=== PATIENT | male | born 1930 | race Caucasian/White ===

== ENCOUNTER 2017-05-05 10:17 | Inpatient (IN) | payer MEDICARE, OTHER ==
--- NOTE | 2017-05-05 11:05 | PDOC ---
History of Present Illness - History of Present Illness Initial Comments: 05/05/17 11:21 The patient is a 86 year old male, with a significant past medical history of hypertension, hyperlipidemia, chronic constipation, and MDS (receiving chemotherapy every 3 weeks for 6 months), who presents to the emergency department from [address] [place] [address], with increased pain to wound on bottom of left 1st toe for about a week. The patient states he noticed a blister to the site many months ago which he reports callused over. 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 He states the last time he had his callus shaved was about 2-3 months ago. The patient reports the pain is localized to the ball of the foot under the big toe. He denies any swelling or pain radiation. He reports the pain is 8/ 10 and exacerbated with walking. He reports he has been taking Advil as needed with temporary pain relief, and also using a callus cushion with minimal relief. He states he is limping secondary to his pain. He denies numbness or tingling to the affected foot. Secondarily, he states his next chemotherapy treatment will be on 05/18 for 5 days. He denies chest pain, shortness of breath, headache and dizziness. He denies fever, chills, nausea, vomit, diarrhea and constipation. He denies dysuria, frequency, urgency and hematuria. 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[place]) <Kristie Thorpe - Last Filed: 05/05/17 11:39> <Joshua Rivas - Last Filed: 05/05/17 14:59> - General Chief Complaint: Wound Infection Stated Complaint: LT FOOT PAIN Time Seen by Provider: 05/05/17 10:36 Past History <Kristie Thorpe - Last Filed: 05/05/17 11:39> - Past Medical History Cancer: Yes (MDS "Chemo") COPD: No HTN: Yes - Surgical History Appendectomy: Yes - Immunization History Immunization Up to Date: Yes - Suicide/Smoking/Psychosocial Hx Smoking History: Never smoked Have you smoked in the past 12 months: No Information on smoking cessation initiated: No Hx Alcohol Use: No Drug/Substance Use Hx: No Substance Use Type: None <Joshua Rivas - Last Filed: 05/05/17 14:59> - Past Medical History Allergies/Adverse Reactions: Allergies Allergy/AdvReac Type Severity Reaction Status Date / Time No Known Allergies Allergy Verified 05/05/17 11:21 Home Medications: Ambulatory Orders Acyclovir [Zovirax -] 400 mg PO ASDIR 05/05/17 Allopurinol [Zyloprim -] 100 mg PO DAILY 05/05/17 Atenolol [Tenormin -] 50 mg PO DAILY 05/05/17 Cyanocobalamin [Vitamin B12 -] 1,500 mcg PO DAILY 05/05/17 Fluconazole 400 mg PO DAILY 05/05/17 Promethazine HCl 25 mg PO Q4H PRN 05/05/17 Simvastatin 20 mg PO DAILY 05/05/17 Spironolactone 50 mg PO DAILY 05/05/17 Review of Systems - Review of Systems Constitutional: No: Chills, Fever Respiratory: No: Cough Musculoskeletal: Yes: See HPI, Joint Pain, Muscle Pain Neurological: No: Tingling, Weakness All Other Systems: Reviewed and Negative <Joshua Rivas - Last Filed: 05/05/17 14:59> *Physical Exam - Vital Signs Last Vital Signs Temp Pulse Resp BP Pulse Ox 97.5 F L 83 14 152/72 97 05/05/17 10:18 05/05/17 10:18 05/05/17 10:18 05/05/17 10:18 05/05/17 10:18 - Physical Exam Comments: 05/05/17 11:21 GENERAL: The patient is awake, alert, and fully oriented, in no acute distress. HEAD: Normal with no signs of trauma. EYES: Pupils equal, round and reactive to light, extraocular movements intact, sclera anicteric, conjunctiva clear with no pallor. ENT: Ears normal, nares patent, oropharynx clear without exudates. Moist mucous membranes. NECK: Normal range of motion, supple without lymphadenopathy, JVD, or masses. LUNGS: Breath sounds equal, clear to auscultation bilaterally. No wheeze/ crackles. HEART: Regular rate and rhythm, normal S1 and S2 without murmur or rub. ABDOMEN: Soft/nontender/nondistended. BS wnl. No guarding or rebound. No palpable masses. No hepatosplenomegaly. EXTREMITIES: Normal range of motion, no edema. No clubbing or cyanosis. No cords, erythema, or tenderness. NEUROLOGICAL: Cranial nerves II through XII grossly intact. Normal speech, normal gait. PSYCH: Normal mood, normal affect. SKIN: (+) (+) left plantar ulceration about 3-4cm likely stage 2 to 3 located at distal aspect of 1st metatarsal. There is some necrotic skin and early signs of deep tissue involvement. There is foul odor and soft tissue swelling extending to dorsum of the foot. No tracking cellulitis. No crepitus. 2+ DP pulse, and otherwise neurovascularly intact. <Kristie Thorpe - Last Filed: 05/05/17 11:39> - Vital Signs Last Vital Signs Temp Pulse Resp BP Pulse Ox 97.5 F L 83 14 152/72 97 05/05/17 10:18 05/05/17 10:18 05/05/17 10:18 05/05/17 10:18 05/05/17 10:18 <Joshua Rivas - Last Filed: 05/05/17 14:59> ED Treatment Course - LABORATORY CBC & Chemistry Diagram: 05/05/17 11:34 05/05/17 11:34 <Joshua Rivas - Last Filed: 05/05/17 14:59> Medical Decision Making - Medical Decision Making 05/05/17 11:41 A portion of this note was documented by scribe services under my direction. I have reviewed the details of the note, within reason, and agree with the documentation with the following case summary and management plan written by me. 86-year-old male with history of MDS on routine outpatient chemotherapy, nondiabetic and without history of peripheral vascular disease with several months of nonhealing left foot blister/wound now presents with about one week of increased pain/swelling/discharge/motor. No fevers or chills, no motor or sensory deficits. Afebrile. Exam as noted with 4 cm ulceration along the plantar aspect of the left foot by the distal first metatarsal, positive bowel odor and discharge with surrounding soft tissue swelling, otherwise neurovascularly intact with 2+ distal pulses 86-year-old male with infected left foot ulcer, on chemotherapy for MDS. Nonseptic appearing, infection appears to be localized. Labs, wound culture Left foot x-ray IV antibiotics Admission for debridement and IV antibiotics 05/05/17 14:55 WBC 3.7, normal diff. ESR 100, CRP 1.6. Chem otherwise wnl. On my prelim review, no soft tissue gas on foot xray. Received iv abx. Accepted for inpatient med/surg by Dr. Woodward, admitting for Dr. Lerma. She will consult Dr. guzman and podiatry <Joshua Rivas - Last Filed: 05/05/17 14:59> *DC/Admit/Observation/Transfer - Attestations Scribe Attestion: 05/05/17 11:27 Documentation prepared by Kristie Thorpe, acting as medical billing coordinator for Joshua Rivas MD, <Kristie Thorpe - Last Filed: 05/05/17 11:39> - Discharge Dispostion Admit: Yes <Joshua Rivas - Last Filed: 05/05/17 14:59> Diagnosis at time of Disposition: Ulcer of left foot Qualifiers: Non-pressure ulcer stage: unspecified non-pressure ulcer stage Qualified Code(s ): L97.529 - Non-pressure chronic ulcer of other part of left foot with unspecified severity Infected ulcer of skin Qualifiers: Non-pressure ulcer stage: unspecified non-pressure ulcer stage Qualified Code(s ): L98.499 - Non-pressure chronic ulcer of skin of other sites with unspecified severity - Discharge Dispostion Condition at time of disposition: Fair
[2017-05-05] MEDS ORDERED: PIPERACILLIN/TAZOB 4.5 GM/100 ML PREMIX BAG IVPB ONE (11:36)
[2017-05-05] MEDS ORDERED: VANCOMYCIN 1,000 MG in DEXTROSE 5%-WATER - 250 ML IVPB ONE (11:36)
[2017-05-05] MEDS ORDERED: PIPERACILLIN/TAZOB 4.5 GM 4.5 GM in DEXTROSE 5%-WATER - 100 ML IVPB ONE (12:00)
[2017-05-05 12:25] LABS: BASOPHIL 0.7 % (0-2.0); EOSINOPHIL 4.5 % (0-4.5); MCH 30.7 pg (25.7-33.7); MCHC 33.7 g/dl (32.0-35.9); MEAN CELL VOLUME 91.2 fl (80-96); MEAN PLT VOLUME 7.2 fl (7.5-11.1); NEUTROPHILS 53.3 % (42.8-82.8); PLATELET COUNT 222 K/MM3 (134-434); RDW 15.9 % (11.9-15.9); WHITE BLOOD COUNT 3.7 K/mm3 (4.0-10.0)
[2017-05-05 12:44] LABS: INR 1.11 (0.82-1.09); PROTHROMBIN TIME (PATIENT) 12.5 SEC (9.98-11.88)
[2017-05-05 12:47] LABS: ACTIVATED PTT 29.5 SECONDS (26.9-34.4)
[2017-05-05 12:51] LABS: ALBUMIN 3.2 g/dl (3.4-5.0); ALK PHOS 112 U/L (45-117); ANION GAP 9 (8-16); BILIRUBIN,TOTAL 0.3 mg/dL (0.2-1.0); C-REACTIVE PROTEIN 1.6 MG/DL (0.00-0.3); CALCIUM 8.4 mg/dL (8.5-10.1); CO2 26 mmol/L (21-32); CREATININE 0.9 mg/dL (0.7-1.3); GLUCOSE,RANDOM 111 mg/dL (74-106); SGOT/AST 16 U/L (15-37); SGPT/ALT 25 U/L (12-78); TOT PROT 6.3 g/dl (6.4-8.2)
[2017-05-05] MEDS ORDERED: PIPERACILLIN/TAZOB 4.5 GM 4.5 GM/100 ML BAG IVPB ONE (12:55)
[2017-05-05] MEDS ORDERED: VANCOMYCIN 1 GRAM (PRE-DOCKED) 1,000 MG/250 ML BAG IVPB ONE (12:59)
[2017-05-05 14:11] LABS: ERYTHROCYTE SEDIMENTATION RATE 100 mm/hr (0-20)
[2017-05-05] MEDS ORDERED: oxyCODONE HCL 5 MG TABLET PO PRN (15:18)
--- NOTE | 2017-05-05 16:37 | PN ---
Progress Note (short form) - Note Progress Note: ID consult dictated imp/reccd 86 year old man recently diagnosed with MDS on monthly Vidaza, admitted with increased pain and bleeding from left chronic plantar ulcer patient reports having had a blister at that spot years ago and having the callus regularly shaved by podiatry, now it has become painful with drainage and has become a wound over the last one month no fevers or chills +erythema of the LLE as well he received vanco/zosyn in ED no blood cultures were sent prior to antiibotics wound culture was sent but the area is essentially dry history from patient and daughter who is at bedside no diabetes infected plantar ulcer- devitalized tissue in the center with surrounding erythema of the ulcer-quite painful LLE cellulitis mds podiatry to see MRI r/o osteo simone Problem List - Problems (1) Infected ulcer of skin Code(s): L98.499 - NON-PRESSURE CHRONIC ULCER OF SKIN OF SITES W UNSP SEVERITY; L08.9 - LOCAL INFECTION OF THE SKIN AND SUBCUTANEOUS TISSUE, UNSP Qualifiers: Non-pressure ulcer stage: unspecified non-pressure ulcer stage Qualified Code(s): L98.499 - Non-pressure chronic ulcer of skin of other sites with unspecified severity; L08.9 - Local infection of the skin and subcutaneous tissue, unspecified; L08.9 - Local infection of the skin and subcutaneous tissue , unspecified (2) Cellulitis Code(s): L03.90 - CELLULITIS, UNSPECIFIED
[2017-05-05 16:49] VITALS: BMI 21.2
--- NOTE | 2017-05-05 17:24 | CONS ---
INFECTIOUS DISEASE CONSULTATION DATE OF CONSULTATION: 05/05/2017 REQUESTING PHYSICIAN: Danyelle Woodward MD HISTORY OF PRESENT ILLNESS: This is an 86-year-old man recently diagnosed with myelodysplasia in September of 2016, receiving Victoza every 28 days. He lives at the [facility] with his , and he presented to the emergency room with increased pain and bleeding from a chronic plantar ulcer on the base of his left big toe. The patient states that many years ago he had a blister under that toe. It subsequently became a callus. The callus would get shaved every several months by the felt pad cutter. About a month ago, he noted that he started developing a wound, then an ulcer at that site, which has progressively worsened with some drainage now noted that is primarily bloody as well as pain on walking. He states he is limping secondary to the pain. He has no fevers or chills. He has no shortness of breath. He otherwise feels well. In the emergency room, he was evaluated and given vancomycin and Zosyn. I am asked to see him for further evaluation. He denies any recent antibiotics. He has had cellulitis of that leg in the past. It is unclear when. His daughter is present and is able to give some of the history. He is unclear when the callus was last shaved and when last the felt pad cutter saw him, currently at [facility]. ALLERGIES: He has no known drug allergies. PAST MEDICAL HISTORY: Notable for hypertension, hyperlipidemia, and gout. He has a history of myelodysplasia, is on Victoza every 28 days. There is no history of diabetes. SURGICAL HISTORY: Notable for appendectomy. He has had some laser vein surgery of his legs as well as Mohs surgery for skin cancer. SOCIAL HISTORY: He is a former smoker. He quit many years ago. He is living with his at [facility]. He is retired. He has lived in many parts of the [place] He worked for [employer] but is originally from [place]. They retired to [place] and recently relocated this summer to [place] to be close to their family. MEDICATIONS AT [facility]: Include acyclovir, allopurinol, atenolol, B12, fluconazole, promethazine, simvastatin, and spironolactone. REVIEW OF SYSTEMS: There are no fevers or chills. He has no cough. He has no chest pain or abdominal pain. He has not had a gout flare in over 20 years. PHYSICAL EXAMINATION: Vital Signs: He is afebrile; temperature is 97.5; T-max of 99. Pulse of 76, blood pressure 148/70. Respiratory rate is 18. He is saturating 100% on room air. General: He is a pleasant, elderly man in no acute distress. HEENT: He is normocephalic. Eyes are anicteric. He has no thrush. Neck: Supple. Lungs: Clear to auscultation. Heart: Regular rate and rhythm. Abdomen: Soft, nontender. Extremities: He has 2+ dorsalis pedis pulses, both legs. He has some erythema of the right lower extremity compared to the left. He has an exquisitely tender plantar ulcer; the middle of which appears to be devitalized, and there is necrotic tissue there as well. He has some surrounding erythema. The gauze, when it was removed, was bloody. LABORATORY DATA: His labs are notable for a white count of 3.7, hemoglobin 9.3, platelets are 222. Sedimentation rate is 100. INR is 1. BUN is 19 and creatinine 0.6. LFTs are normal. CRP is 1.6, and sedimentation rate is 100. No blood cultures were sent. A swab of the foot was sent, but there is really no drainage at this point, and it was negative for white cells. In summary, this is an elderly man with a plantar ulcer that looks like it needs some debridement, with surrounding erythema. It is quite painful. He has left lower extremity cellulitis as well. He has a diagnosis of myelodysplasia. I would suggest we treat him with Rocephin for now. I will have Podiatry see him and obtain an MRI of the foot to rule out osteomyelitis. Further recommendations to follow. Gianni LINO/[id number]
[2017-05-05] MEDS: ACYCLOVIR 400 MG TABLET PO SCH ×2 (18:24→22:21)
[2017-05-05] MEDS: ATORVASTATIN CA 20 MG TABLET (FP) PO SCH ×2 (18:24→22:21)
[2017-05-05] MEDS ORDERED: PT OWN MED DRAWER 7, Y5N ONE (22:02)
[2017-05-05] MEDS: DOCUSATE SODIUM 100 MG CAPSULE (FP) PO SCH (22:21)
--- NOTE | 2017-05-05 22:47 | HP ---
Admitting History and Physical - Admission History of Present Illness: The patient is a 86 year old male, with PMH of HTN, HLD, chronic constipation, and MDS (receiving chemotherapy every 3 weeks for 6 months), who presents to the ED from [address] [place] [address], with increased pain to wound on bottom of left 1st toe for about a week. The patient states he noticed a blister to the site many months ago which he reports callused over. 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 He states the last time he had his callus shaved was about 2-3 months ago. The patient reports the pain is localized to the ball of the foot under the big toe. He denies any swelling or pain radiation. He reports the pain is 8/ 10 and exacerbated with walking. He reports he has been taking Advil as needed with temporary pain relief, and also using a callus cushion with minimal relief. He states he is limping secondary to his pain. He denies numbness or tingling to the affected foot. Secondarily, he states his next chemotherapy treatment will be on 05/18 for 5 days. 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, Peripheral Neuropathy Cardiovascular: Yes: HTN Pulmonary: No: COPD Gastrointestinal: Yes: Constipation Renal/: No: Renal Failure Heme/Onc: Yes: Current Chemotherapy, Myeloproliferative Synd Musculoskeletal: No: Chronic low back pain - Smoking History Smoking history: Never smoked Have you smoked in the past 12 months: No - Alcohol/Substance Use Hx Alcohol Use: No - Social History Usual Living Arrangement: Yes: Assisted Living History of Recent Travel: No Home Medications - Allergies Allergies/Adverse Reactions: Allergies Allergy/AdvReac Type Severity Reaction Status Date / Time No Known Allergies Allergy Verified 05/05/17 11:21 - Home Medications Home Medications: Ambulatory Orders Allopurinol [Zyloprim -] 100 mg PO DAILY 05/05/17 Atenolol [Tenormin -] 50 mg PO DAILY 05/05/17 Ergocalciferol (Vitamin D2) [Vitamin D2] 50,000 unit PO MONTHLY 05/05/17 Simvastatin 20 mg PO DAILY 05/05/17 Spironolactone 50 mg PO DAILY 05/05/17 Vits A,C,E/Lutein/Minerals [Vision Formula with Lutein Tab] 1 each PO DAILY Review of Systems - Review of Systems Constitutional: denies: Chills, Lethargy, Night Sweats, Unintentional Wgt. Loss Eyes: reports: No Symptoms HENT: reports: No Symptoms Neck: reports: No Symptoms Cardiovascular: reports: No Symptoms Respiratory: reports: No Symptoms Gastrointestinal: reports: Constipation. denies: Abdominal Pain, Bloating Genitourinary: reports: No Symptoms Breasts: reports: No Symptoms Reported Musculoskeletal: reports: No Symptoms Integumentary: reports: No Symptoms Neurological: reports: No Symptoms. denies: Numbness Endocrine: reports: No Symptoms Physical Examination Vital Signs: Vital Signs Temperature 98.5 F 05/05/17 18:10 Pulse Rate 65 05/05/17 18:10 Respiratory Rate 18 05/05/17 18:10 Blood Pressure 120/59 05/05/17 18:10 O2 Sat by Pulse Oximetry (%) 97 05/05/17 16:44 Constitutional: Yes: Well Nourished, No Distress, Calm Eyes: Yes: WNL, Conjunctiva Clear HENT: Yes: WNL, Atraumatic, Normocephalic Neck: Yes: WNL, Supple, Trachea Midline Cardiovascular: Yes: WNL, Regular Rate and Rhythm Respiratory: Yes: WNL, CTA Bilaterally Gastrointestinal: Yes: WNL, Normal Bowel Sounds, Soft ...Rectal Exam: Yes: Deferred Renal/: Yes: WNL Breast(s): Yes: WNL Musculoskeletal: Yes: WNL Extremities: Yes: Other ( +foul oder, -drainage, +cellulitis, +erythema, +edema , in 1st MPJ at base of hallux,) Edema: Yes Edema: LUE: 1+, RUE: 1+, LLE: 1+, RLE: 1+ Peripheral Pulses: Left Radial: 2+, Right Radial: 2+, Left Doralis Pedis: 2+, Right Dorsalis Pedis: 2+, Left Femoral: 2+, Right Femoral: 2+ Integumentary: Yes: Venous Stasis Changes Wound/Incision: Yes: Other ( +foul odor, + erythema). No: Draining ...Motor Strength: WNL Psychiatric: Yes: Alert, Oriented Labs: CBC, BMP 05/05/17 11:34 05/05/17 11:34 sedimentation 100 CRP 1.6 Problem List - Problems (1) Ulcer of left foot Assessment/Plan: - on going " On & Off for yrs " - r/o Osteomyelitis MRI ordered - ID consult for ABX coverage c/s of site done in ER -- however site is DRY no Blood C/S available - Vascular consult + pulses bilateral yet ongoing / non healing wound - Podiatry consult r/o abscess may need intervention Code(s): L97.529 - NON-PRESSURE CHRONIC ULCER OTH PRT LEFT FOOT W UNSP SEVERITY Qualifiers: Non-pressure ulcer stage: unspecified non-pressure ulcer stage Qualified Code(s): L97.529 - Non-pressure chronic ulcer of other part of left foot with unspecified severity (2) Infected ulcer of skin Code(s): L98.499 - NON-PRESSURE CHRONIC ULCER OF SKIN OF SITES W UNSP SEVERITY; L08.9 - LOCAL INFECTION OF THE SKIN AND SUBCUTANEOUS TISSUE, UNSP Qualifiers: Non-pressure ulcer stage: unspecified non-pressure ulcer stage Qualified Code(s): L98.499 - Non-pressure chronic ulcer of skin of other sites with unspecified severity; L08.9 - Local infection of the skin and subcutaneous tissue, unspecified; L08.9 - Local infection of the skin and subcutaneous tissue , unspecified (3) Cellulitis Code(s): L03.90 - CELLULITIS, UNSPECIFIED (4) HTN (hypertension) Code(s): I10 - ESSENTIAL (PRIMARY) HYPERTENSION (5) HLD (hyperlipidemia) Code(s): E78.5 - HYPERLIPIDEMIA, UNSPECIFIED (6) MDS (myelodysplastic syndrome) Code(s): D46.9 - MYELODYSPLASTIC SYNDROME, UNSPECIFIED
[2017-05-06 08:01] LABS: ALBUMIN 3.2 g/dl (3.4-5.0); ANION GAP 7 (8-16); CALCIUM 8.7 mg/dL (8.5-10.1); CO2 30 mmol/L (21-32); GLUCOSE,RANDOM 94 mg/dL (74-106)
--- NOTE | 2017-05-06 08:04 | CONSULT ---
Consult - text type - Consultation Consultation Note: Patient is an 86 y.o white male seen for chronic wound sub 1st metatrsal. Patient states it is very painful. Patient cannot recall past treatments but states it has been going on for years on and off. PMH and Meds reviewed Palpable pulses noted b/l extremities, +foul oder, -drainage, +cellulitis, + erythema, +edema, xray reviewed possible changes noted in 1st MPJ at base of hallux, fluctuance noted labs reviewed r/o om r/o abscess MRI. Vascular consult. Hgba1c and c reactive protein added to labs. Will follow. Awaiting MRI results. Possible I&D if no improvement of tenderness. Will follow up tomorrow. Thank You for the consult.
[2017-05-06 08:05] LABS: ALK PHOS 113 U/L (45-117); BILIRUBIN,TOTAL 0.5 mg/dL (0.2-1.0); CREATININE 0.8 mg/dL (0.7-1.3); MAGNESIUM 2.1 mg/dL (1.8-2.4); SGOT/AST 14 U/L (15-37); SGPT/ALT 23 U/L (12-78); TOT PROT 6.2 g/dl (6.4-8.2)
[2017-05-06 08:08] LABS: MCH 30.7 pg (25.7-33.7); MCHC 33.4 g/dl (32.0-35.9); MEAN CELL VOLUME 91.9 fl (80-96); MEAN PLT VOLUME 7.4 fl (7.5-11.1); PLATELET COUNT 247 K/MM3 (134-434); RDW 16.3 % (11.9-15.9)
[2017-05-06 09:30] LABS: C-REACTIVE PROTEIN 1.7 MG/DL (0.00-0.3)
[2017-05-06] MEDS ORDERED: CEFTRIAXONE 1 G/50 ML PREMIX 1 ML IVPB SCH (10:00)
[2017-05-06] MEDS: CEFTRIAXONE 1 GM/50 ML PREMIX IVPB SCH (10:21)
[2017-05-06] MEDS: PANTOPRAZOLE 20 MG TABLET (FP) PO SCH (10:22)
[2017-05-06] MEDS: ALLOPURINOL 100 MG TABLET (FP) PO SCH (10:22)
[2017-05-06] MEDS: ATENOLOL 50 MG TABLET (FP) PO SCH (10:22)
[2017-05-06] MEDS: SPIRONOLACTONE 25 MG TABLET (FP) PO SCH (10:22)
[2017-05-06] MEDS: ACYCLOVIR 400 MG TABLET PO SCH ×2 (10:23→21:03)
--- NOTE | 2017-05-06 12:17 | CONSULT ---
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: Alzheimer's, Peripheral Neuropathy Cardio/Vascular: Yes: HTN Pulmonary: No: COPD Gastrointestinal: Yes: Constipation Renal/: No: Renal Failure Musculoskeletal: No: Chronic low back pain - Alcohol/Substance Use Hx Alcohol Use: No - Smoking History Smoking history: Never smoked Have you smoked in the past 12 months: No - Social History History of Recent Travel: No Home Medications - Allergies Allergies/Adverse Reactions: Allergies Allergy/AdvReac Type Severity Reaction Status Date / Time No Known Allergies Allergy Verified 05/05/17 11:21 - Home Medications Home Medications: Ambulatory Orders Allopurinol [Zyloprim -] 100 mg PO DAILY 05/05/17 Atenolol [Tenormin -] 50 mg PO DAILY 05/05/17 Ergocalciferol (Vitamin D2) [Vitamin D2] 50,000 unit PO MONTHLY 05/05/17 Simvastatin 20 mg PO DAILY 05/05/17 Spironolactone 50 mg PO DAILY 05/05/17 Vits A,C,E/Lutein/Minerals [Vision Formula with Lutein Tab] 1 each PO DAILY Physical Exam Vital Signs: Vital Signs Temperature 98 F 05/06/17 10:40 Pulse Rate 65 05/06/17 10:40 Respiratory Rate 18 05/06/17 10:40 Blood Pressure 118/54 05/06/17 10:40 O2 Sat by Pulse Oximetry (%) 97 05/05/17 21:00 Labs: CBC, BMP 05/06/17 06:25 05/06/17 06:25 Assessment/Plan VAscular Surgery The patient is a 86 year old male, with a significant past medical history of hypertension, hyperlipidemia, chronic constipation, and MDS (receiving chemotherapy every 3 weeks for 6 months), who presents to the emergency department from [address] [place] [address], with increased pain to wound on bottom of left 1st toe for about a week. The patient states he noticed a blister to the site many months ago which he reports callused over. 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 He states the last time he had his callus shaved was about 2-3 months ago. The patient reports the pain is localized to the ball of the foot under the big toe. He denies any swelling or pain radiation. He reports the pain is 8/ 10 and exacerbated with walking. He reports he has been taking Advil as needed with temporary pain relief, and also using a callus cushion with minimal relief. He states he is limping secondary to his pain. He denies numbness or tingling to the affected foot. Secondarily, he states his next chemotherapy treatment will be on 05/18 for 5 days. He denies chest pain, shortness of breath, headache and dizziness. He denies fever, chills, nausea, vomit, diarrhea and constipation. He denies dysuria, frequency, urgency and hematuria. 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[place]) <Kristie Thorpe - Last Filed: 05/05/17 11:39> <Joshua Rivas - Last Filed: 05/05/17 14:59> - General Chief Complaint: Wound Infection Stated Complaint: LT FOOT PAIN Time Seen by Provider: 05/05/17 10:36 Past History <Kristie Thorpe - Last Filed: 05/05/17 11:39> - Past Medical History Cancer: Yes (MDS "Chemo") COPD: No HTN: Yes - Surgical History Appendectomy: Yes - Immunization History Immunization Up to Date: Yes - Suicide/Smoking/Psychosocial Hx Smoking History: Never smoked Have you smoked in the past 12 months: No Information on smoking cessation initiated: No Hx Alcohol Use: No Drug/Substance Use Hx: No Substance Use Type: None <Joshua Rivas - Last Filed: 05/05/17 14:59> - Past Medical History Allergies/Adverse Reactions: Allergies Allergy/AdvReac Type Severity Reaction Status Date / Time No Known Allergies Allergy Verified 05/05/17 11:21 Home Medications: Ambulatory Orders Acyclovir [Zovirax -] 400 mg PO ASDIR 05/05/17 Allopurinol [Zyloprim -] 100 mg PO DAILY 05/05/17 Atenolol [Tenormin -] 50 mg PO DAILY 05/05/17 Cyanocobalamin [Vitamin B12 -] 1,500 mcg PO DAILY 05/05/17 Fluconazole 400 mg PO DAILY 05/05/17 Promethazine HCl 25 mg PO Q4H PRN 05/05/17 Simvastatin 20 mg PO DAILY 05/05/17 Spironolactone 50 mg PO DAILY 05/05/17 PE Head - NC/aT Lung -CTA Heart - RRR abd -soft,nt,nd ext - warm, pink. Left plantar ulcer. very tender to touch. Palpable DP and PT pulses. A/P MRI ordrered. Cleared from a vascular standpoint for exploration of wound if needed by podiatry. ID on case. Lex Read DO
[2017-05-06] MEDS: FLUCONAZOLE 100 MG TABLET (UD) PO SCH (12:21)
--- NOTE | 2017-05-06 12:26 | PN ---
Progress Note (short form) - Note Progress Note: reports less pain, less swelling Vital Signs Period Temp Pulse Resp BP Sys/Rios Pulse Ox Last 24 Hr 98 F-98.6 F 62-65 16-57 99-120/46-68 97-97 LLE less erythema, dry plantar ulcer CBC, BMP 05/06/17 06:25 05/06/17 06:25 Microbiology 05/05/17 11:34 Foot - Left Plantar Gram Stain - Final a/p infected plantar ulcer- devitalized tissue in the center with surrounding erythema of the ulcer-quite painful LLE cellulitis mds podiatry to see MRI r/o osteo rocephin to continue improved d/w Dr Read Problem List - Problems (1) Infected ulcer of skin Code(s): L98.499 - NON-PRESSURE CHRONIC ULCER OF SKIN OF SITES W UNSP SEVERITY; L08.9 - LOCAL INFECTION OF THE SKIN AND SUBCUTANEOUS TISSUE, UNSP Qualifiers: Non-pressure ulcer stage: unspecified non-pressure ulcer stage Qualified Code(s): L98.499 - Non-pressure chronic ulcer of skin of other sites with unspecified severity; L08.9 - Local infection of the skin and subcutaneous tissue, unspecified; L08.9 - Local infection of the skin and subcutaneous tissue , unspecified (2) Cellulitis Code(s): L03.90 - CELLULITIS, UNSPECIFIED
[2017-05-06] MEDS: ATORVASTATIN CA 20 MG TABLET (FP) PO SCH (21:03)
[2017-05-06] MEDS: DOCUSATE SODIUM 100 MG CAPSULE (FP) PO SCH ×2 (21:03→21:26)
--- NOTE | 2017-05-06 21:30 | PN ---
Progress Note (short form) - Note Progress Note: patient sitting in bed having lunch Dr guzman in attendance awaiting MRI of foot remains in "a lot of pain" difficult to ambulate admits has been going on for "weeks" Vital Signs Period Temp Pulse Resp BP Sys/Rios Pulse Ox Last 24 Hr 97.8 F-98.6 F 62-65 16-20 99-123/46-68 97 remains a febrile NAD while sitting in bed neck supple heart S1/S2 Lungclear bilat abd soft non tender Ext -- unchanged CBC, BMP 05/06/17 06:25 05/06/17 06:25 awaiting MRI - will have done today elevated CRP n Sed Rate Microbiology 05/05/17 11:34 Foot - Left Plantar Gram Stain - Final 05/05/17 11:34 Foot - Left Plantar Wound Culture - Preliminary Group D Strep Or Entero Coccus Active Medications Acyclovir (Zovirax -) 400 mg PO BID [facility] Last Admin: 05/06/17 21:03 Dose: 400 mg Allopurinol (Zyloprim -) 100 mg PO DAILY [facility] Last Admin: 05/06/17 10:22 Dose: 100 mg Atenolol (Tenormin -) 50 mg PO DAILY [facility] Last Admin: 05/06/17 10:22 Dose: 50 mg Atorvastatin Calcium (Lipitor -) 20 mg PO HS [facility] Last Admin: 05/06/17 21:03 Dose: 20 mg Docusate Sodium (Colace -) 200 mg PO HS [facility] Last Admin: 05/06/17 21:26 Dose: Not Given Fluconazole (Diflucan -) 400 mg PO DAILY [facility] Last Admin: 05/06/17 12:21 Dose: 400 mg Oxycodone HCl (Roxicodone -) 5 mg PO Q6H PRN PRN Reason: PAIN Last Admin: 05/05/17 22:21 Dose: 5 mg Pantoprazole Sodium (Protonix -) 20 mg PO DAILY [facility] Last Admin: 05/06/17 10:22 Dose: 20 mg Spironolactone (Aldactone -) 50 mg PO DAILY [facility] Last Admin: 05/06/17 10:22 Dose: 50 mg s/p Vanco 1 gm s/p Zosyn now Rocephin 1 gm /day Problem List - Problems (1) Ulcer of left foot Assessment/Plan: - on going " On & Off for yrs " - r/o Osteomyelitis MRI today - ID consult for appreciated ABX per ID c/s of site done in ER -- however site is DRY no Blood C/S available - Vascular consult + pulses bilateral yet ongoing / non healing wound - Podiatry consult r/o abscess may need intervention Code(s): L97.529 - NON-PRESSURE CHRONIC ULCER OTH PRT LEFT FOOT W UNSP SEVERITY Qualifiers: Non-pressure ulcer stage: unspecified non-pressure ulcer stage Qualified Code(s): L97.529 - Non-pressure chronic ulcer of other part of left foot with unspecified severity (2) Infected ulcer of skin Code(s): L98.499 - NON-PRESSURE CHRONIC ULCER OF SKIN OF SITES W UNSP SEVERITY; L08.9 - LOCAL INFECTION OF THE SKIN AND SUBCUTANEOUS TISSUE, UNSP Qualifiers: Non-pressure ulcer stage: unspecified non-pressure ulcer stage Qualified Code(s): L98.499 - Non-pressure chronic ulcer of skin of other sites with unspecified severity; L08.9 - Local infection of the skin and subcutaneous tissue, unspecified; L08.9 - Local infection of the skin and subcutaneous tissue , unspecified (3) Cellulitis Code(s): L03.90 - CELLULITIS, UNSPECIFIED (4) HTN (hypertension) Code(s): I10 - ESSENTIAL (PRIMARY) HYPERTENSION (5) HLD (hyperlipidemia) Code(s): E78.5 - HYPERLIPIDEMIA, UNSPECIFIED (6) MDS (myelodysplastic syndrome) Code(s): D46.9 - MYELODYSPLASTIC SYNDROME, UNSPECIFIED
[2017-05-07] MEDS: ALLOPURINOL 100 MG TABLET (FP) PO SCH (10:06)
[2017-05-07] MEDS: ATENOLOL 50 MG TABLET (FP) PO SCH (10:06)
[2017-05-07] MEDS: SPIRONOLACTONE 25 MG TABLET (FP) PO SCH (10:06)
[2017-05-07] MEDS: PANTOPRAZOLE 20 MG TABLET (FP) PO SCH (10:06)
[2017-05-07] MEDS: CEFTRIAXONE 1 GM/50 ML PREMIX IVPB SCH (10:07)
[2017-05-07] MEDS: FLUCONAZOLE 100 MG TABLET (UD) PO SCH (10:07)
[2017-05-07] MEDS: ACYCLOVIR 400 MG TABLET PO SCH ×2 (10:07→21:50)
--- NOTE | 2017-05-07 10:14 | CONSULT ---
Consult - text type - Consultation Consultation Note: Patient seen in bed. MRI done but not read. Labs reviewed. +drainage today, +tender, +cellulitis, +draining abscess grade 2-3 probes deep OM? Abscess Awaiting MRI result. Possible I&D tomorrow. Will follow. Wound culture done today. Read and appreciated Dr. zane Hoover note. Will put on schedule pending clearance. Medical clearance Dr. Woodward.
--- NOTE | 2017-05-07 13:45 | PN ---
Progress Note (short form) - Note Progress Note: ID Ceftriaxone ( Acyclovir ad diflucan) Selected Entries 05/07/17 09:24 Temperature 97.6 F Pulse Rate 70 Respiratory 20 Rate Blood Pressure 126/63 foot with drainage and cellulitis as noted Microbiology 05/05/17 11:34 Foot - Left Plantar Gram Stain - Final 05/05/17 21:30 Blood - Peripheral Venous Blood Culture - Preliminary NO GROWTH OBTAINED AFTER 24 HOURS, INCUBATION TO CONTINUE FOR 4 DAYS. 05/05/17 21:30 Blood - Peripheral Venous Blood Culture - Preliminary NO GROWTH OBTAINED AFTER 24 HOURS, INCUBATION TO CONTINUE FOR 4 DAYS. 05/05/17 11:34 Foot - Left Plantar Wound Culture - Preliminary Group D Strep Or Entero Coccus Laboratory Tests 05/05/17 05/06/17 05/06/17 11:34 06:25 06:25 WBC 4.0 Hgb 9.8 L Hct 29.2 L Plt Count 247 ESR 100 H BUN 13 D Assessment Cellulitis with abscess Plan MRI reviewed does not show osteo definitively Change to Unasyn Debridement scheduled with deep culture Madison TRUONG
[2017-05-07] MEDS: AMPICILLIN NA/SULBACTAM NA 1.5 GM in SODIUM CHLORIDE 100 ML IVPB SCH ×3 (14:59→22:29)
[2017-05-07] MEDS ORDERED: ACETAMINOPHEN 325 MG TABLET (FP) PO PRN (16:33)
--- NOTE | 2017-05-07 17:31 | CON.CARD ---
Cardiology Consult (text) - Consultation Consultation Note: CC: pre-op clearance 86 yo with h/o HTN here for LE wound --> now requiring surgery, consult for pre- op clearance. Sedentary, but can walk up a flight of stairs without limitations. No prior hx of CV evaluation. No hx of cad, dm, chf, cva/tia. + LE pain at site of wound. Otherwise asx. no orthopnea, pnd, bleeding, cp, sob, transient neurologic sx's, palps. 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 Current Medications Acetaminophen (Tylenol -) 650 mg PO Q6H PRN PRN Reason: FEVER OR PAIN Last Admin: 05/07/17 16:56 Dose: 650 mg Acyclovir (Zovirax -) 400 mg PO BID [facility] Last Admin: 05/07/17 10:07 Dose: 400 mg Allopurinol (Zyloprim -) 100 mg PO DAILY [facility] Last Admin: 05/07/17 10:06 Dose: 100 mg Atenolol (Tenormin -) 50 mg PO DAILY [facility] Last Admin: 05/07/17 10:06 Dose: 50 mg Atorvastatin Calcium (Lipitor -) 20 mg PO HS [facility] Last Admin: 05/06/17 21:03 Dose: 20 mg Docusate Sodium (Colace -) 200 mg PO HS [facility] Last Admin: 05/06/17 21:26 Dose: Not Given Fluconazole (Diflucan -) 400 mg PO DAILY [facility] Last Admin: 05/07/17 10:07 Dose: 400 mg Ampicillin Sodium/Sulbactam (Sodium 1.5 gm/ Sodium Chloride) 100 mls @ 200 mls/ hr IVPB Q6H-IV [facility] Last Admin: 05/07/17 16:57 Dose: Not Given Oxycodone HCl (Roxicodone -) 5 mg PO Q6H PRN PRN Reason: PAIN Last Admin: 05/05/17 22:21 Dose: 5 mg Pantoprazole Sodium (Protonix -) 20 mg PO DAILY [facility] Last Admin: 05/07/17 10:06 Dose: 20 mg Spironolactone (Aldactone -) 50 mg PO DAILY [facility] Last Admin: 05/07/17 10:06 Dose: 50 mg Vital Signs - 24 hr 05/06/17 05/06/17 05/07/17 18:05 21:00 06:00 Temperature 98.3 F 98.5 F Pulse Rate 70 65 Respiratory 18 18 Rate Blood Pressure 119/54 114/59 O2 Sat by Pulse 97 Oximetry (%) 05/07/17 05/07/17 09:24 14:25 Temperature 97.6 F 97.9 F Pulse Rate 70 62 Respiratory 20 18 Rate Blood Pressure 126/63 113/53 O2 Sat by Pulse Oximetry (%) Intake & Output 05/05/17 05/06/17 05/07/17 05/08/17 07:59 07:59 07:59 07:59 Intake Total 875 440 Balance 875 440 Weight 150 lb nad, calm jvd flat, neck supple ctab, nl effort rrr nl s1, s2 no mrg + bs soft nt nd ext with trace edema/erythema at left ankle otherwise no e/c/c dressing to LLE + dp/pt no carotid bruits aaox3 no jaundice, diaphoresis CBC, BMP 05/06/17 06:25 05/06/17 06:25 Laboratory Tests 05/06/17 05/07/17 06:25 07:00 Hemoglobin A1c % 5.9 Total Bilirubin 0.5 D AST 14 L ALT 23 Alkaline Phosphatase 113 C-Reactive Protein 1.7 H D Albumin 3.2 L 86 yo with h/o HTN, Myeloproliferative Synd here for LE wound --> now requiring surgery, consult for pre-op clearance. Pre op -clearance: - EKG ordered. Will follow up. Based on RCRI and functional capacity, patient has low estimated risk for jameson-operative CV events. Patient counseled on risk. No further testing needed prior to intervention. HTN - Will hold spironolactone to avoid jameson-operative hypotension.
[2017-05-07] MEDS: ATORVASTATIN CA 20 MG TABLET (FP) PO SCH (21:50)
[2017-05-07] MEDS: DOCUSATE SODIUM 100 MG CAPSULE (FP) PO SCH (21:50)
[2017-05-08] MEDS: AMPICILLIN NA/SULBACTAM NA 1.5 GM in SODIUM CHLORIDE 100 ML IVPB SCH ×5 (02:07→21:40)
[2017-05-08 07:47] LABS: BASOPHIL 0.7 % (0-2.0); EOSINOPHIL 4.7 % (0-4.5); MCH 30.7 pg (25.7-33.7); MCHC 33.5 g/dl (32.0-35.9); MEAN CELL VOLUME 91.7 fl (80-96); MEAN PLT VOLUME 7.3 fl (7.5-11.1); NEUTROPHILS 60.1 % (42.8-82.8); PLATELET COUNT 257 K/MM3 (134-434); RDW 15.7 % (11.9-15.9); WHITE BLOOD COUNT 4.4 K/mm3 (4.0-10.0)
[2017-05-08] MEDS ORDERED: PT OWN MED DRAWER 7, Y5N ONE ×4 (08:24→21:38)
[2017-05-08 08:36] LABS: ANION GAP 14 (8-16); CALCIUM 9.6 mg/dL (8.5-10.1); CO2 22 mmol/L (21-32); CREATININE 0.9 mg/dL (0.7-1.3); GLUCOSE,RANDOM 96 mg/dL (74-106)
[2017-05-08] MEDS: ALLOPURINOL 100 MG TABLET (FP) PO SCH (09:29)
[2017-05-08] MEDS: PANTOPRAZOLE 20 MG TABLET (FP) PO SCH (09:29)
[2017-05-08] MEDS: ATENOLOL 50 MG TABLET (FP) PO SCH (09:29)
[2017-05-08] MEDS: FLUCONAZOLE 100 MG TABLET (UD) PO SCH (09:30)
[2017-05-08] MEDS: ACYCLOVIR 400 MG TABLET PO SCH ×2 (09:30→21:40)
--- NOTE | 2017-05-08 10:03 | EKG ---
Test Reason : Blood Pressure : / mmHG Vent. Rate : 060 BPM Atrial Rate : 060 BPM P-R Int : 194 ms QRS Dur : 082 ms QT Int : 402 ms P-R-T Axes : 056 037 067 degrees QTc Int : 402 ms NORMAL SINUS RHYTHM NORMAL ECG NO PREVIOUS ECGS AVAILABLE Confirmed by ELSA JAVIER MD ([id number]) on 05/08/2017 10:03:09 AM Referred By: JENNY Confirmed By:ELSA JAVIER MD
--- NOTE | 2017-05-08 10:14 | PN ---
Progress Note (short form) - Note Progress Note: comfrotable in bed still with pain to left foot dressing in place requesting tylenol only appreciate Cardio note and clearance Vital Signs Period Temp Pulse Resp BP Sys/Rios Pulse Ox Last 24 Hr 97.8 F-98.6 F 62-65 16-20 99-123/46-68 97 remains a febrile NAD neck supple heart S1/S2 Lungclear bilat abd soft non tender Ext -- unchanged dressing to left foot Microbiology 05/05/17 11:34 Foot - Left Plantar Gram Stain - Final 05/05/17 11:34 Foot - Left Plantar Wound Culture - Preliminary Group D Strep Or Entero Coccus Active Medications Acyclovir (Zovirax -) 400 mg PO BID [facility] Last Admin: 05/06/17 21:03 Dose: 400 mg Allopurinol (Zyloprim -) 100 mg PO DAILY [facility] Last Admin: 05/06/17 10:22 Dose: 100 mg Atenolol (Tenormin -) 50 mg PO DAILY [facility] Last Admin: 05/06/17 10:22 Dose: 50 mg Atorvastatin Calcium (Lipitor -) 20 mg PO HS [facility] Last Admin: 05/06/17 21:03 Dose: 20 mg Docusate Sodium (Colace -) 200 mg PO HS [facility] Last Admin: 05/06/17 21:26 Dose: Not Given Fluconazole (Diflucan -) 400 mg PO DAILY [facility] Last Admin: 05/06/17 12:21 Dose: 400 mg Oxycodone HCl (Roxicodone -) 5 mg PO Q6H PRN PRN Reason: PAIN Last Admin: 05/05/17 22:21 Dose: 5 mg Pantoprazole Sodium (Protonix -) 20 mg PO DAILY [facility] Last Admin: 05/06/17 10:22 Dose: 20 mg Spironolactone (Aldactone -) 50 mg PO DAILY [facility] Last Admin: 05/06/17 10:22 Dose: 50 mg s/p Vanco 1 gm s/p Zosyn now Rocephin 1 gm /day scheduled for OR in am Problem List - Problems (1) Ulcer of left foot Code(s): L97.529 - NON-PRESSURE CHRONIC ULCER OTH PRT LEFT FOOT W UNSP SEVERITY Qualifiers: Non-pressure ulcer stage: unspecified non-pressure ulcer stage Qualified Code(s): L97.529 - Non-pressure chronic ulcer of other part of left foot with unspecified severity (2) Infected ulcer of skin Code(s): L98.499 - NON-PRESSURE CHRONIC ULCER OF SKIN OF SITES W UNSP SEVERITY; L08.9 - LOCAL INFECTION OF THE SKIN AND SUBCUTANEOUS TISSUE, UNSP Qualifiers: Non-pressure ulcer stage: unspecified non-pressure ulcer stage Qualified Code(s): L98.499 - Non-pressure chronic ulcer of skin of other sites with unspecified severity; L08.9 - Local infection of the skin and subcutaneous tissue, unspecified; L08.9 - Local infection of the skin and subcutaneous tissue , unspecified (3) Cellulitis Code(s): L03.90 - CELLULITIS, UNSPECIFIED (4) HTN (hypertension) Code(s): I10 - ESSENTIAL (PRIMARY) HYPERTENSION (5) HLD (hyperlipidemia) Code(s): E78.5 - HYPERLIPIDEMIA, UNSPECIFIED (6) MDS (myelodysplastic syndrome) Code(s): D46.9 - MYELODYSPLASTIC SYNDROME, UNSPECIFIED
--- NOTE | 2017-05-08 10:38 | PN ---
Progress Note (short form) - Note Progress Note: comfrotable in bed scheduled for OR shortly dressing in place appreciate Cardio note and clearance Patient medically cleared for OR today Vital Signs Period Temp Pulse Resp BP Sys/Rios Pulse Ox Last 24 Hr 97.8 F-98.6 F 62-65 16-20 99-123/46-68 97 remains a febrile NAD neck supple heart S1/S2 Lung clear bilat abd soft non tender Ext -- unchanged dressing to left foot CBC, BMP 05/08/17 07:20 05/08/17 07:20 EKG 05/08/17 NSR MRI --early Osteo?? elevated Sed Rate & CRP Microbiology 05/05/17 21:30 Blood - Peripheral Venous Blood Culture - Preliminary NO GROWTH OBTAINED AFTER 48 HOURS, INCUBATION TO CONTINUE FOR 3 DAYS. 05/05/17 21:30 Blood - Peripheral Venous Blood Culture - Preliminary NO GROWTH OBTAINED AFTER 48 HOURS, INCUBATION TO CONTINUE FOR 3 DAYS. 05/05/17 11:34 Foot - Left Plantar Gram Stain - Final 05/05/17 11:34 Foot - Left Plantar Wound Culture - Preliminary Group D Strep Or Entero Coccus Staphylococcus Coagulase Neg Active Medications Acetaminophen (Tylenol -) 650 mg PO Q6H PRN PRN Reason: FEVER OR PAIN Last Admin: 05/07/17 16:56 Dose: 650 mg Acyclovir (Zovirax -) 400 mg PO BID [facility] Last Admin: 05/08/17 09:30 Dose: 400 mg Allopurinol (Zyloprim -) 100 mg PO DAILY [facility] Last Admin: 05/08/17 09:29 Dose: 100 mg Atenolol (Tenormin -) 50 mg PO DAILY [facility] Last Admin: 05/08/17 09:29 Dose: 50 mg Atorvastatin Calcium (Lipitor -) 20 mg PO HS [facility] Last Admin: 05/07/17 21:50 Dose: 20 mg Docusate Sodium (Colace -) 200 mg PO HS [facility] Last Admin: 05/07/17 21:50 Dose: 200 mg Fluconazole (Diflucan -) 400 mg PO DAILY [facility] Last Admin: 05/08/17 09:30 Dose: 400 mg Ampicillin Sodium/Sulbactam (Sodium 1.5 gm/ Sodium Chloride) 100 mls @ 200 mls/ hr IVPB Q6H-IV [facility] Last Admin: 05/08/17 09:42 Dose: 200 mls/hr Oxycodone HCl (Roxicodone -) 5 mg PO Q6H PRN PRN Reason: PAIN Last Admin: 05/05/17 22:21 Dose: 5 mg Pantoprazole Sodium (Protonix -) 20 mg PO DAILY [facility] Last Admin: 05/08/17 09:29 Dose: 20 mg Spironolactone (Aldactone -) 50 mg PO DAILY [facility] Last Admin: 05/07/17 10:06 Dose: 50 mg s/p Vanco 1 gm s/p Zosyn NPO since midnight scheduled for OR today Problem List - Problems (1) Ulcer of left foot Assessment/Plan: - on going " On & Off for yrs " - r/o Osteomyelitis MRI suggestive of early OM elevated CRP / Sed rate - ID consult for appreciated ABX per ID c/s of site done in ER -- however site is DRY - Vascular consult + pulses bilateral yet ongoing / non healing wound - Podiatry consult for OR this am Code(s): L97.529 - NON-PRESSURE CHRONIC ULCER OTH PRT LEFT FOOT W UNSP SEVERITY Qualifiers: Non-pressure ulcer stage: unspecified non-pressure ulcer stage Qualified Code(s): L97.529 - Non-pressure chronic ulcer of other part of left foot with unspecified severity (2) Infected ulcer of skin Assessment/Plan: follow c/s appreciate ID consult and follow up Code(s): L98.499 - NON-PRESSURE CHRONIC ULCER OF SKIN OF SITES W UNSP SEVERITY; L08.9 - LOCAL INFECTION OF THE SKIN AND SUBCUTANEOUS TISSUE, UNSP Qualifiers: Non-pressure ulcer stage: unspecified non-pressure ulcer stage Qualified Code(s): L98.499 - Non-pressure chronic ulcer of skin of other sites with unspecified severity; L08.9 - Local infection of the skin and subcutaneous tissue, unspecified; L08.9 - Local infection of the skin and subcutaneous tissue , unspecified (3) Cellulitis Code(s): L03.90 - CELLULITIS, UNSPECIFIED (4) HTN (hypertension) Assessment/Plan: well controlled EKG NSR no significant past Cardiac event Code(s): I10 - ESSENTIAL (PRIMARY) HYPERTENSION (5) HLD (hyperlipidemia) Code(s): E78.5 - HYPERLIPIDEMIA, UNSPECIFIED (6) MDS (myelodysplastic syndrome) Code(s): D46.9 - MYELODYSPLASTIC SYNDROME, UNSPECIFIED
--- NOTE | 2017-05-08 12:32 | PN ---
Progress Note (short form) - Note Progress Note: for operative debridement today reports less pain, less swelling Vital Signs Period Temp Pulse Resp BP Sys/Rios Pulse Ox Last 24 Hr 97.8 F-98.6 F 60-70 17-18 108-128/53-68 97 cor-rr lungs decreased bs at bases abd soft,nt ext plantar ulcer is dry some drainage on dressing, minimal erythema CBC, BMP 05/08/17 07:20 05/08/17 07:20 Microbiology 05/05/17 21:30 Blood - Peripheral Venous Blood Culture - Preliminary NO GROWTH OBTAINED AFTER 48 HOURS, INCUBATION TO CONTINUE FOR 3 DAYS. 05/05/17 21:30 Blood - Peripheral Venous Blood Culture - Preliminary NO GROWTH OBTAINED AFTER 48 HOURS, INCUBATION TO CONTINUE FOR 3 DAYS. 05/05/17 11:34 Foot - Left Plantar Gram Stain - Final 05/05/17 11:34 Foot - Left Plantar Wound Culture - Preliminary Group D Strep Or Entero Coccus Staphylococcus Coagulase Neg Current Medications Acetaminophen (Tylenol -) 650 mg PO Q6H PRN PRN Reason: FEVER OR PAIN Last Admin: 05/07/17 16:56 Dose: 650 mg Acyclovir (Zovirax -) 400 mg PO BID [facility] Last Admin: 05/08/17 09:30 Dose: 400 mg Allopurinol (Zyloprim -) 100 mg PO DAILY [facility] Last Admin: 05/08/17 09:29 Dose: 100 mg Atenolol (Tenormin -) 50 mg PO DAILY [facility] Last Admin: 05/08/17 09:29 Dose: 50 mg Atorvastatin Calcium (Lipitor -) 20 mg PO HS [facility] Last Admin: 05/07/17 21:50 Dose: 20 mg Docusate Sodium (Colace -) 200 mg PO HS [facility] Last Admin: 05/07/17 21:50 Dose: 200 mg Fluconazole (Diflucan -) 400 mg PO DAILY [facility] Last Admin: 05/08/17 09:30 Dose: 400 mg Ampicillin Sodium/Sulbactam (Sodium 1.5 gm/ Sodium Chloride) 100 mls @ 200 mls/ hr IVPB Q6H-IV [facility] Last Admin: 05/08/17 09:42 Dose: 200 mls/hr Oxycodone HCl (Roxicodone -) 5 mg PO Q6H PRN PRN Reason: PAIN Last Admin: 05/05/17 22:21 Dose: 5 mg Pantoprazole Sodium (Protonix -) 20 mg PO DAILY [facility] Last Admin: 05/08/17 09:29 Dose: 20 mg Spironolactone (Aldactone -) 50 mg PO DAILY [facility] Last Admin: 05/07/17 10:06 Dose: 50 mg a/p infected plantar ulcer- devitalized tissue in the center with surrounding erythema of the ulcer-quite painful continue unasyn, f/u with podiatry, for debridement today LLE cellulitis MDS Problem List - Problems (1) Infected ulcer of skin Code(s): L98.499 - NON-PRESSURE CHRONIC ULCER OF SKIN OF SITES W UNSP SEVERITY; L08.9 - LOCAL INFECTION OF THE SKIN AND SUBCUTANEOUS TISSUE, UNSP Qualifiers: Non-pressure ulcer stage: unspecified non-pressure ulcer stage Qualified Code(s): L98.499 - Non-pressure chronic ulcer of skin of other sites with unspecified severity; L08.9 - Local infection of the skin and subcutaneous tissue, unspecified; L08.9 - Local infection of the skin and subcutaneous tissue , unspecified (2) Cellulitis Code(s): L03.90 - CELLULITIS, UNSPECIFIED
[2017-05-08] MEDS ORDERED: MIDAZOLAM HCL 2 MG/2 ML SINGLE DOSE VIAL ONE ×2 (14:25→14:50)
[2017-05-08] MEDS ORDERED: PROPOFOL 20 ML ONE (14:56)
[2017-05-08] MEDS ORDERED: LIDOCAINE HCL 1%, 10 MG/ML (20ML VIAL) PNB ONE (15:09)
[2017-05-08] MEDS ORDERED: BUPIVACAINE HCL/PF (5 MG/ML) 30 ML VIAL IJ ONE (15:09)
[2017-05-08] MEDS ORDERED: PROMETHAZINE HCL 25 MG/1 ML VIAL IVPUSH PRN ×2 (15:37→16:01)
[2017-05-08] MEDS ORDERED: ONDANSETRON 4 MG/2 ML VIAL IVPUSH PRN ×2 (15:37→16:01)
[2017-05-08] MEDS ORDERED: oxyCODONE HCL 5 MG TABLET PO PRN ×2 (15:37→16:01)
[2017-05-08] MEDS ORDERED: LACTATED RINGERS SOLUTION 1,000 ML IV SCH (15:45)
[2017-05-08] MEDS: LACTATED RINGERS SOLUTION 1,000 ML IV SCH (16:00)
[2017-05-08] MEDS ORDERED: ACETAMINOPHEN 325 MG TABLET (FP) PO PRN (16:01)
[2017-05-08] MEDS ORDERED: PIPERACILLIN/TAZOB 4.5 GM/100 ML PREMIX BAG IVPB ONE (16:01)
[2017-05-08] MEDS ORDERED: ERGOCALCIFEROL (VITAMIN D2) 50,000 UNIT CAPSULE (FP) PO SCH (16:01)
--- NOTE | 2017-05-08 16:18 | PN ---
Progress Note (short form) - Note Progress Note: Surgeon: Dr. Aguirre Assistance: Dr. Renteria Preop diagnosis: infected left 1st submet wound Postop diagnosis: same as above Procedure:left 1st subemet wound 1&D, debrdridement, and bone biopsy of 1st metatarsal Pathology:bone and soft tissue Anesthesia: local with MAC Hemostasis: none EBL: 15cc Materials: N/A Injectable: preop injection of 10cc of 1:1 mix of 1% lidocain plain and 0.5% Marcain plain condition: stable complication: none -Pt tolerated the procedure well and transferred to PACU from OR with all neurovascular status intact on bilateral LE. -Pt to be transferred to floor when clinically and hemodynamically stable as per anesthesia. -KEEP THE POST OP DRESSING CLEAN, DRY AND INTACT UNTIL NEXT CHANGE BY DR. AGUIRRE -PLEASE HAVE 'GELFOAM' DRESSING FROM OR AVAILABLE IN THE ROOM FOR NEXT DRESSING CHANGE -STRICT BEDBOUND AND NON WEIGHTBEARING ON THE LEFT FOOT -PLEASE TAKE LEFT FOOT XRAY FOR S/P 1ST METATARSAL BONE BIOPSY.
[2017-05-08] MEDS: ATORVASTATIN CA 20 MG TABLET (FP) PO SCH (21:40)
[2017-05-08] MEDS: DOCUSATE SODIUM 100 MG CAPSULE (FP) PO SCH (21:40)
[2017-05-09] MEDS ORDERED: PT OWN MED DRAWER 7, Y5N ONE ×6 (02:23→20:30)
[2017-05-09] MEDS: AMPICILLIN NA/SULBACTAM NA 1.5 GM in SODIUM CHLORIDE 100 ML IVPB SCH ×4 (03:40→20:55)
[2017-05-09] MEDS: LACTATED RINGERS SOLUTION 1,000 ML IV SCH ×2 (04:18→16:41)
[2017-05-09] MEDS: ATENOLOL 50 MG TABLET (FP) PO SCH (09:30)
[2017-05-09] MEDS: PANTOPRAZOLE 20 MG TABLET (FP) PO SCH (09:30)
[2017-05-09] MEDS: ALLOPURINOL 100 MG TABLET (FP) PO SCH (09:31)
[2017-05-09] MEDS: SPIRONOLACTONE 25 MG TABLET (FP) PO SCH (09:32)
[2017-05-09] MEDS: ATORVASTATIN CA 10 MG TABLET (FP) PO SCH (09:32)
[2017-05-09] MEDS: ACYCLOVIR 400 MG TABLET PO SCH ×2 (09:34→22:08)
[2017-05-09] MEDS: FLUCONAZOLE 100 MG TABLET (UD) PO SCH (09:36)
[2017-05-09] MEDS ORDERED: PATIENT'S OWN MEDICATION (NON-FORMULARY) (Spironolactone [Spironolactone] 50 MG) PO SCH (10:00)
--- NOTE | 2017-05-09 12:15 | PN ---
Progress Note (short form) - Note Progress Note: for operative debridement today dressing intact reports less pain, less swelling Vital Signs Period Temp Pulse Resp BP Sys/Rios Pulse Ox Last 24 Hr 97.0 F-97.8 F 53-83 15-20 99-134/44-65 95-99 cor-rrr lungs clear abd soft,nt ext dressing intact CBC, BMP 05/08/17 07:20 05/08/17 07:20 Microbiology 05/07/17 15:30 Foot - Left Plantar Gram Stain - Final 05/07/17 15:30 Foot - Left Plantar Wound Culture - Preliminary Group D Strep Or Entero Coccus 05/05/17 21:30 Blood - Peripheral Venous Blood Culture - Preliminary NO GROWTH OBTAINED AFTER 72 HOURS, INCUBATION TO CONTINUE FOR 2 DAYS. 05/05/17 21:30 Blood - Peripheral Venous Blood Culture - Preliminary NO GROWTH OBTAINED AFTER 72 HOURS, INCUBATION TO CONTINUE FOR 2 DAYS. 05/05/17 11:34 Foot - Left Plantar Gram Stain - Final 05/05/17 11:34 Foot - Left Plantar Wound Culture - Final Enterococcus Faecalis Staphylococcus Coagulase Neg a/p infected plantar ulcer- devitalized tissue in the center with surrounding erythema of the ulcer-quite painful continue unasyn, f/u operative cultures LLE cellulitis MDS Problem List - Problems (1) Infected ulcer of skin Code(s): L98.499 - NON-PRESSURE CHRONIC ULCER OF SKIN OF SITES W UNSP SEVERITY; L08.9 - LOCAL INFECTION OF THE SKIN AND SUBCUTANEOUS TISSUE, UNSP Qualifiers: Non-pressure ulcer stage: unspecified non-pressure ulcer stage Qualified Code(s): L98.499 - Non-pressure chronic ulcer of skin of other sites with unspecified severity; L08.9 - Local infection of the skin and subcutaneous tissue, unspecified; L08.9 - Local infection of the skin and subcutaneous tissue , unspecified (2) Cellulitis Code(s): L03.90 - CELLULITIS, UNSPECIFIED
--- NOTE | 2017-05-09 12:53 | CONSULT ---
Consult - text type - Consultation Consultation Note: Patient seen walking back from bathroom against Medical advice as 24 hour bedrest no bathroom privelages ordered. POD#1 less than 24 hours. VSS, TMAX 97.8. dressing, clean dry and intact, wound C&S from 05/05/2017 +staph coag negative awaiting cultures done in OR of bone and wound and bone biopsy, MRI inconclusive as advised prior to surgery reviewed result [id number] = 5.9% r/o OM cellulitis grade 1-2 ulceration sub met 1 left foot PT consult walker partial weight bearing heel left foot. ID consult. VNS at home. Dressing change on Thursday. May have bathroom privelages starting at 5pm today. Will follow. CBC with diff, ESR today. Spoke to daughter Dannielle about his care.
[2017-05-09 13:42] LABS: BASOPHIL 0.4 % (0-2.0); MCH 30.5 pg (25.7-33.7); MCHC 33.5 g/dl (32.0-35.9); MEAN CELL VOLUME 90.9 fl (80-96); NEUTROPHILS 77.3 % (42.8-82.8); PLATELET COUNT 324 K/MM3 (134-434); RDW 15.6 % (11.9-15.9); WHITE BLOOD COUNT 6.3 K/mm3 (4.0-10.0)
[2017-05-09] MEDS: ATORVASTATIN CA 20 MG TABLET (FP) PO SCH (22:08)
[2017-05-09] MEDS: DOCUSATE SODIUM 100 MG CAPSULE (FP) PO SCH (22:08)
[2017-05-10] MEDS: AMPICILLIN NA/SULBACTAM NA 1.5 GM in SODIUM CHLORIDE 100 ML IVPB SCH ×4 (02:24→21:24)
[2017-05-10] MEDS: LACTATED RINGERS SOLUTION 1,000 ML IV SCH ×2 (05:17→20:00)
[2017-05-10] MEDS ORDERED: PT OWN MED DRAWER 7, Y5N ONE ×4 (07:10→21:07)
[2017-05-10] MEDS: ATENOLOL 50 MG TABLET (FP) PO SCH (09:25)
[2017-05-10] MEDS: ALLOPURINOL 100 MG TABLET (FP) PO SCH (09:25)
[2017-05-10] MEDS: PANTOPRAZOLE 20 MG TABLET (FP) PO SCH (09:25)
[2017-05-10] MEDS: SPIRONOLACTONE 25 MG TABLET (FP) PO SCH (09:25)
[2017-05-10] MEDS: ATORVASTATIN CA 10 MG TABLET (FP) PO SCH (09:25)
[2017-05-10] MEDS: FLUCONAZOLE 100 MG TABLET (UD) PO SCH (09:34)
[2017-05-10] MEDS: ACYCLOVIR 400 MG TABLET PO SCH ×2 (09:35→21:25)
--- NOTE | 2017-05-10 14:25 | PN ---
Progress Note (short form) - Note Progress Note: comfrotable in bed s/p OR Bone BX done dressing in place / toes warm was ambulating in room "only to bathroom" Vital Signs Period Temp Pulse Resp BP Sys/Rios Pulse Ox Last 24 Hr 97.8 F-98.6 F 62-65 16-20 99-123/46-68 97 remains a febrile NAD neck supple heart S1/S2 Lung clear bilat abd soft non tender Ext -- no calf tenderness / dressing to left foot CBC, BMP 05/09/17 13:39 05/08/17 07:20 MRI --early Osteo?? elevated Sed Rate & CRP ( 2/2MDS??) Microbiology 05/05/17 21:30 Blood - Peripheral Venous Blood Culture - Preliminary NO GROWTH OBTAINED AFTER 48 HOURS, INCUBATION TO CONTINUE FOR 3 DAYS. 05/05/17 21:30 Blood - Peripheral Venous Blood Culture - Preliminary NO GROWTH OBTAINED AFTER 48 HOURS, INCUBATION TO CONTINUE FOR 3 DAYS. 05/05/17 11:34 Foot - Left Plantar Gram Stain - Final 05/05/17 11:34 Foot - Left Plantar Wound Culture - Preliminary Group D Strep Or Entero Coccus Staphylococcus Coagulase Neg Active Medications Acetaminophen (Tylenol -) 650 mg PO Q6H PRN PRN Reason: FEVER OR PAIN Last Admin: 05/07/17 16:56 Dose: 650 mg Acyclovir (Zovirax -) 400 mg PO BID [facility] Last Admin: 05/08/17 09:30 Dose: 400 mg Allopurinol (Zyloprim -) 100 mg PO DAILY [facility] Last Admin: 05/08/17 09:29 Dose: 100 mg Atenolol (Tenormin -) 50 mg PO DAILY [facility] Last Admin: 05/08/17 09:29 Dose: 50 mg Atorvastatin Calcium (Lipitor -) 20 mg PO HS [facility] Last Admin: 05/07/17 21:50 Dose: 20 mg Docusate Sodium (Colace -) 200 mg PO HS [facility] Last Admin: 05/07/17 21:50 Dose: 200 mg Fluconazole (Diflucan -) 400 mg PO DAILY [facility] Last Admin: 05/08/17 09:30 Dose: 400 mg Ampicillin Sodium/Sulbactam (Sodium 1.5 gm/ Sodium Chloride) 100 mls @ 200 mls/ hr IVPB Q6H-IV [facility] Last Admin: 05/08/17 09:42 Dose: 200 mls/hr Oxycodone HCl (Roxicodone -) 5 mg PO Q6H PRN PRN Reason: PAIN Last Admin: 05/05/17 22:21 Dose: 5 mg Pantoprazole Sodium (Protonix -) 20 mg PO DAILY [facility] Last Admin: 05/08/17 09:29 Dose: 20 mg Spironolactone (Aldactone -) 50 mg PO DAILY [facility] Last Admin: 05/07/17 10:06 Dose: 50 mg s/p Vanco 1 gm s/p Zosyn At ED on admission denies pain / feeling well Problem List - Problems (1) Ulcer of left foot Assessment/Plan: - on going " On & Off for yrs " - r/o Osteomyelitis MRI suggestive of early OM elevated CRP / Sed rate ( 2/2 MDA??) - ID consult for appreciated ABX per ID c/s & Bx done in OR -- will determine lenght of ABX - Podiatry follow up will arrange for out patient follow up Code(s): L97.529 - NON-PRESSURE CHRONIC ULCER OTH PRT LEFT FOOT W UNSP SEVERITY Qualifiers: Non-pressure ulcer stage: unspecified non-pressure ulcer stage Qualified Code(s): L97.529 - Non-pressure chronic ulcer of other part of left foot with unspecified severity (2) Infected ulcer of skin Assessment/Plan: follow c/s & bone Bx Code(s): L98.499 - NON-PRESSURE CHRONIC ULCER OF SKIN OF SITES W UNSP SEVERITY; L08.9 - LOCAL INFECTION OF THE SKIN AND SUBCUTANEOUS TISSUE, UNSP Qualifiers: Non-pressure ulcer stage: unspecified non-pressure ulcer stage Qualified Code(s): L98.499 - Non-pressure chronic ulcer of skin of other sites with unspecified severity; L08.9 - Local infection of the skin and subcutaneous tissue, unspecified; L08.9 - Local infection of the skin and subcutaneous tissue , unspecified (3) Cellulitis Code(s): L03.90 - CELLULITIS, UNSPECIFIED (4) HTN (hypertension) Assessment/Plan: well controlled EKG NSR no significant past Cardiac event continue medications Code(s): I10 - ESSENTIAL (PRIMARY) HYPERTENSION (5) HLD (hyperlipidemia) Code(s): E78.5 - HYPERLIPIDEMIA, UNSPECIFIED (6) MDS (myelodysplastic syndrome) Assessment/Plan: Followed by Dr Barnes Scheduled for Chemo on 05/18 Code(s): D46.9 - MYELODYSPLASTIC SYNDROME, UNSPECIFIED
[2017-05-10] MEDS: ATORVASTATIN CA 20 MG TABLET (FP) PO SCH (21:24)
[2017-05-10] MEDS: DOCUSATE SODIUM 100 MG CAPSULE (FP) PO SCH (21:24)
[2017-05-11] MEDS ORDERED: PT OWN MED DRAWER 7, Y5N ONE ×3 (01:25→16:41)
[2017-05-11] MEDS: AMPICILLIN NA/SULBACTAM NA 1.5 GM in SODIUM CHLORIDE 100 ML IVPB SCH ×4 (03:22→21:36)
--- NOTE | 2017-05-11 10:16 | CONSULT ---
Consult - text type - Consultation Consultation Note: PT seen in bed. No complaints. No pain. VSS Tmax 97.7 nvsgi, +grade 1-2 ulceration sub met 1 mild bleeding noted, Recent culture E. Fecalis Grade 1-2 ulcer left foot sub met 1 om? Read and appreciated ID note. Awaiting VNS, home IVABX, Consult HBO. Dresing change done. Betadine dressing applied. Partial weight baring left heel with post op shoe and walkr. Will follow till DC.
[2017-05-11] MEDS: ATENOLOL 50 MG TABLET (FP) PO SCH (10:34)
[2017-05-11] MEDS: SPIRONOLACTONE 25 MG TABLET (FP) PO SCH (10:34)
[2017-05-11] MEDS: ATORVASTATIN CA 10 MG TABLET (FP) PO SCH (10:34)
[2017-05-11] MEDS: ALLOPURINOL 100 MG TABLET (FP) PO SCH (10:34)
[2017-05-11] MEDS: PANTOPRAZOLE 20 MG TABLET (FP) PO SCH (10:34)
[2017-05-11] MEDS: FLUCONAZOLE 100 MG TABLET (UD) PO SCH (10:35)
[2017-05-11] MEDS: ACYCLOVIR 400 MG TABLET PO SCH ×2 (10:36→21:36)
[2017-05-11] MEDS: LACTATED RINGERS SOLUTION 1,000 ML IV SCH ×2 (10:45→16:48)
--- NOTE | 2017-05-11 10:59 | PN ---
Progress Note, Physician Chief Complaint: foot wound History of Present Illness: s/p foot surgery. doing well, ambulating with soft case denies sob, orthopnea, cp, palpit - Current Medication List Current Medications: Active Medications Acetaminophen (Tylenol -) 650 mg PO Q6H PRN PRN Reason: FEVER OR PAIN Acyclovir (Zovirax -) 400 mg PO BID [facility] Last Admin: 05/11/17 10:36 Dose: 400 mg Allopurinol (Zyloprim -) 100 mg PO DAILY [facility] Last Admin: 05/11/17 10:34 Dose: 100 mg Atenolol (Tenormin -) 50 mg PO DAILY [facility] Last Admin: 05/11/17 10:34 Dose: 50 mg Atorvastatin Calcium (Lipitor -) 20 mg PO HS [facility] Last Admin: 05/10/17 21:24 Dose: 20 mg Atorvastatin Calcium (Lipitor -) 10 mg PO DAILY [facility] Last Admin: 05/11/17 10:34 Dose: 10 mg Docusate Sodium (Colace -) 200 mg PO HS [facility] Last Admin: 05/10/17 21:24 Dose: 200 mg Fentanyl (Sublimaze Injection -) 25 mcg IVPUSH [id number] PRN PRN Reason: PAIN Fluconazole (Diflucan -) 400 mg PO DAILY [facility] Last Admin: 05/11/17 10:35 Dose: 400 mg Ampicillin Sodium/Sulbactam (Sodium 1.5 gm/ Sodium Chloride) 100 mls @ 200 mls/ hr IVPB Q6H-IV [facility] Last Admin: 05/11/17 10:00 Dose: 200 mls/hr Lactated Ringer's (Lactated Ringers Solution) 1,000 mls @ 75 mls/hr IV ASDIR [facility] Last Admin: 05/11/17 10:45 Dose: 75 mls/hr Ondansetron HCl (Zofran Injection) 4 mg IVPUSH Q6H PRN PRN Reason: NAUSEA AND/OR VOMITING Pantoprazole Sodium (Protonix -) 20 mg PO DAILY [facility] Last Admin: 05/11/17 10:34 Dose: 20 mg Promethazine HCl (Phenergan Injection -) 12.5 mg IVPUSH Q6H PRN PRN Reason: NAUSEA-FOR RESCUE AFTER 15 MIN Spironolactone (Aldactone -) 50 mg PO DAILY [facility] Last Admin: 05/11/17 10:34 Dose: 50 mg - Objective Vital Signs: Vital Signs Temperature 97.7 F 05/11/17 06:00 Pulse Rate 57 L 05/11/17 06:00 Respiratory Rate 18 05/11/17 06:00 Blood Pressure 143/55 05/11/17 06:00 O2 Sat by Pulse Oximetry (%) 97 05/10/17 21:00 Constitutional: Yes: Well Nourished, No Distress, Calm Cardiovascular: Yes: Regular Rate and Rhythm, S1, S2. No: Gallop, Murmur Respiratory: Yes: Regular, CTA Bilaterally. No: Accessory Muscle Use, Rales, Wheezes Extremities: No: Cold Neurological: Yes: Alert, Oriented Psychiatric: No: Agitated Labs: CBC, BMP 05/09/17 13:39 05/08/17 07:20 INR, PTT INR 1.11 (0.82-1.09) 05/05/17 11:34 Assessment/Plan 86 yo with h/o HTN, Myeloproliferative Synd here for LE wound --> now requiring surgery, consult for pre-op clearance. HTN - spironolactone held o avoid jameson-operative hypotension. - bp now 120s-140s--resume prior spirono home dose no signs of ongoing active cv process
--- NOTE | 2017-05-11 11:03 | PN ---
Progress Note, Physician Chief Complaint: ID Patient apparently had bone biopsy done 05/08 with debridement. A bone biopsy performed the result currently pending - Current Medication List Current Medications: Active Medications Acetaminophen (Tylenol -) 650 mg PO Q6H PRN PRN Reason: FEVER OR PAIN Acyclovir (Zovirax -) 400 mg PO BID [facility] Last Admin: 05/11/17 10:36 Dose: 400 mg Allopurinol (Zyloprim -) 100 mg PO DAILY [facility] Last Admin: 05/11/17 10:34 Dose: 100 mg Atenolol (Tenormin -) 50 mg PO DAILY [facility] Last Admin: 05/11/17 10:34 Dose: 50 mg Atorvastatin Calcium (Lipitor -) 20 mg PO HS [facility] Last Admin: 05/10/17 21:24 Dose: 20 mg Atorvastatin Calcium (Lipitor -) 10 mg PO DAILY [facility] Last Admin: 05/11/17 10:34 Dose: 10 mg Docusate Sodium (Colace -) 200 mg PO HS [facility] Last Admin: 05/10/17 21:24 Dose: 200 mg Fentanyl (Sublimaze Injection -) 25 mcg IVPUSH [id number] PRN PRN Reason: PAIN Fluconazole (Diflucan -) 400 mg PO DAILY [facility] Last Admin: 05/11/17 10:35 Dose: 400 mg Ampicillin Sodium/Sulbactam (Sodium 1.5 gm/ Sodium Chloride) 100 mls @ 200 mls/ hr IVPB Q6H-IV [facility] Last Admin: 05/11/17 10:00 Dose: 200 mls/hr Lactated Ringer's (Lactated Ringers Solution) 1,000 mls @ 75 mls/hr IV ASDIR [facility] Last Admin: 05/11/17 10:45 Dose: 75 mls/hr Ondansetron HCl (Zofran Injection) 4 mg IVPUSH Q6H PRN PRN Reason: NAUSEA AND/OR VOMITING Pantoprazole Sodium (Protonix -) 20 mg PO DAILY [facility] Last Admin: 05/11/17 10:34 Dose: 20 mg Promethazine HCl (Phenergan Injection -) 12.5 mg IVPUSH Q6H PRN PRN Reason: NAUSEA-FOR RESCUE AFTER 15 MIN Spironolactone (Aldactone -) 50 mg PO DAILY [facility] Last Admin: 05/11/17 10:34 Dose: 50 mg - Objective Vital Signs: Vital Signs Temperature 97.7 F 05/11/17 06:00 Pulse Rate 57 L 05/11/17 06:00 Respiratory Rate 18 05/11/17 06:00 Blood Pressure 143/55 05/11/17 06:00 O2 Sat by Pulse Oximetry (%) 97 05/10/17 21:00 Constitutional: Yes: Well Nourished, No Distress Eyes: Yes: WNL, Conjunctiva Clear HENT: Yes: WNL, Atraumatic Neck: Yes: WNL, Supple Cardiovascular: Yes: S1, S2 Respiratory: Yes: WNL, Regular, CTA Bilaterally Gastrointestinal: Yes: Soft. No: Tenderness Extremities: Yes: Other (Left foot post op dressing) Labs: CBC, BMP 05/09/17 13:39 05/08/17 07:20 INR, PTT INR 1.11 (0.82-1.09) 05/05/17 11:34 Assessment/Plan Microbiology 05/08/17 16:00 Bone Gram Stain - Final 05/08/17 16:00 Bone Anaerobic Culture - Final NO ANAEROBES WERE ISOLATED 05/08/17 15:30 Tissue-Other Gram Stain - Final 05/08/17 15:30 Tissue-Other Anaerobic Culture - Final NO ANAEROBES WERE ISOLATED 05/07/17 15:30 Foot - Left Plantar Gram Stain - Final 05/07/17 15:30 Foot - Left Plantar Wound Culture - Final Enterococcus Faecalis 05/05/17 21:30 Blood - Peripheral Venous Blood Culture - Final NO GROWTH AFTER 5 DAYS INCUBATION 05/05/17 11:34 Foot - Left Plantar Gram Stain - Final 05/05/17 11:34 Foot - Left Plantar Wound Culture - Final Enterococcus Faecalis Staphylococcus Coagulase Neg 05/08/17 16:00 Bone Tissue Culture - Preliminary NO AEROBIC GROWTH, 24 HRS 05/08/17 15:30 Tissue-Other Tissue Culture - Preliminary Enterococcus Faecalis Laboratory Tests 05/05/17 05/06/17 05/09/17 11:34 06:25 13:39 WBC 6.3 D Hgb 9.7 L Hct 29.0 L Plt Count 324 D ESR C-Reactive Protein 1.6 H 1.7 H D 05/09/17 13:39 WBC Hgb Hct Plt Count ESR 108 H C-Reactive Protein Assessment Currently bone culture no growth but he was already treated with antibiotics. A bone biopsy done and pending patient informs me he was told by podiatry he is being discharged I placed a call and will hopefully get call back tis afterrnoon Plan Consider earlier discharge with outpt podiatry follow up Not sure why Acyclovir and diflucan ?? Madison TRUONG
--- NOTE | 2017-05-11 17:26 | PN ---
Progress Note (short form) - Note Progress Note: comfrotable in bed s/p OR Bone BX done dressing in place / toes warm patietn was instructed not to ambulate -- however was ambulating in room "only to bathroom" Vital Signs Period Temp Pulse Resp BP Sys/Rios Pulse Ox Last 24 Hr 97.8 F-98.6 F 62-65 16-20 99-123/46-68 97 remains a febrile NAD neck supple heart S1/S2 Lung clear bilat abd soft non tender Ext -- no calf tenderness / dressing to left foot + pulses Left foot post splint / gauze dressing ( from OR) CBC, BMP 05/09/17 13:39 05/08/17 07:20 MRI --early Osteo?? elevated Sed Rate & CRP ( 2/2MDS??) Microbiology 05/05/17 21:30 Blood - Peripheral Venous Blood Culture - Preliminary NO GROWTH OBTAINED AFTER 48 HOURS, INCUBATION TO CONTINUE FOR 3 DAYS. 05/05/17 21:30 Blood - Peripheral Venous Blood Culture - Preliminary NO GROWTH OBTAINED AFTER 48 HOURS, INCUBATION TO CONTINUE FOR 3 DAYS. 05/05/17 11:34 Foot - Left Plantar Gram Stain - Final 05/05/17 11:34 Foot - Left Plantar Wound Culture - Preliminary Group D Strep Or Entero Coccus Staphylococcus Coagulase Neg Active Medications Acetaminophen (Tylenol -) 650 mg PO Q6H PRN PRN Reason: FEVER OR PAIN Last Admin: 05/07/17 16:56 Dose: 650 mg Acyclovir (Zovirax -) 400 mg PO BID [facility] Last Admin: 05/08/17 09:30 Dose: 400 mg Allopurinol (Zyloprim -) 100 mg PO DAILY [facility] Last Admin: 05/08/17 09:29 Dose: 100 mg Atenolol (Tenormin -) 50 mg PO DAILY [facility] Last Admin: 05/08/17 09:29 Dose: 50 mg Atorvastatin Calcium (Lipitor -) 20 mg PO HS [facility] Last Admin: 05/07/17 21:50 Dose: 20 mg Docusate Sodium (Colace -) 200 mg PO HS [facility] Last Admin: 05/07/17 21:50 Dose: 200 mg Fluconazole (Diflucan -) 400 mg PO DAILY [facility] Last Admin: 05/08/17 09:30 Dose: 400 mg Ampicillin Sodium/Sulbactam (Sodium 1.5 gm/ Sodium Chloride) 100 mls @ 200 mls/ hr IVPB Q6H-IV [facility] Last Admin: 05/08/17 09:42 Dose: 200 mls/hr Oxycodone HCl (Roxicodone -) 5 mg PO Q6H PRN PRN Reason: PAIN Last Admin: 05/05/17 22:21 Dose: 5 mg Pantoprazole Sodium (Protonix -) 20 mg PO DAILY [facility] Last Admin: 05/08/17 09:29 Dose: 20 mg Spironolactone (Aldactone -) 50 mg PO DAILY [facility] Last Admin: 05/07/17 10:06 Dose: 50 mg s/p Vanco 1 gm s/p Zosyn At ED on admission denies pain / feeling well Problem List - Problems (1) Ulcer of left foot Assessment/Plan: - s/p OR today for I & D / bone bx will await c/s comtinue ABX to discuss with ID / Podiatry - Ulcer of Foot -Chronic " On & Off for yrs " getting worse for last several weeks - r/o Osteomyelitis MRI suggestive of early OM elevated CRP / Sed rate ( 2/2 MDA??) will need to wait on Bx - ID consult for appreciated ABX per ID c/s & Bx done in OR -- will determine length of ABX - Podiatry follow up will arrange for out patient follow up Code(s): L97.529 - NON-PRESSURE CHRONIC ULCER OTH PRT LEFT FOOT W UNSP SEVERITY Qualifiers: Non-pressure ulcer stage: unspecified non-pressure ulcer stage Qualified Code(s): L97.529 - Non-pressure chronic ulcer of other part of left foot with unspecified severity (2) Infected ulcer of skin Code(s): L98.499 - NON-PRESSURE CHRONIC ULCER OF SKIN OF SITES W UNSP SEVERITY; L08.9 - LOCAL INFECTION OF THE SKIN AND SUBCUTANEOUS TISSUE, UNSP Qualifiers: Non-pressure ulcer stage: unspecified non-pressure ulcer stage Qualified Code(s): L98.499 - Non-pressure chronic ulcer of skin of other sites with unspecified severity; L08.9 - Local infection of the skin and subcutaneous tissue, unspecified; L08.9 - Local infection of the skin and subcutaneous tissue , unspecified (3) Cellulitis Code(s): L03.90 - CELLULITIS, UNSPECIFIED (4) HTN (hypertension) Code(s): I10 - ESSENTIAL (PRIMARY) HYPERTENSION (5) HLD (hyperlipidemia) Code(s): E78.5 - HYPERLIPIDEMIA, UNSPECIFIED (6) MDS (myelodysplastic syndrome) Code(s): D46.9 - MYELODYSPLASTIC SYNDROME, UNSPECIFIED
--- NOTE | 2017-05-11 17:32 | PN ---
Progress Note (short form) - Note Progress Note: seen and examined in his room comfortable denies pain dressing changed today Vital Signs Period Temp Pulse Resp BP Sys/Rios Pulse Ox Last 24 Hr 97.6 F-98.7 F 55-61 18-18 126-143/54-66 97 laying in bed NAD neck supple heart S1/S2 Lung clear bilat abd soft non tender Ext -- no calf tenderness / dressing to left foot + pulses CBC, BMP 05/09/17 13:39 05/08/17 07:20 MRI --early Osteo?? elevated Sed Rate & CRP ( 2/2MDS??) Microbiology 05/08/17 15:30 Tissue-Other Gram Stain - Final 05/08/17 15:30 Tissue-Other Tissue Culture - Final Enterococcus Faecalis 05/08/17 15:30 Tissue-Other Anaerobic Culture - Final NO ANAEROBES WERE ISOLATED 05/08/17 16:00 Bone Gram Stain - Final 05/08/17 16:00 Bone Tissue Culture - Final NO GROWTH OF AEROBIC ORGANISMS AFTER 48 HOURS INCUBATION 05/08/17 16:00 Bone Anaerobic Culture - Final NO ANAEROBES WERE ISOLATED 05/05/17 21:30 Blood - Peripheral Venous Blood Culture - Final NO GROWTH AFTER 5 DAYS INCUBATION 05/05/17 21:30 Blood - Peripheral Venous Blood Culture - Final NO GROWTH AFTER 5 DAYS INCUBATION 05/07/17 15:30 Foot - Left Plantar Gram Stain - Final 05/07/17 15:30 Foot - Left Plantar Wound Culture - Final Enterococcus Faecalis 05/05/17 11:34 Foot - Left Plantar Gram Stain - Final 05/05/17 11:34 Foot - Left Plantar Wound Culture - Final Enterococcus Faecalis Staphylococcus Coagulase Neg Active Medications Acetaminophen (Tylenol -) 650 mg PO Q6H PRN PRN Reason: FEVER OR PAIN Acyclovir (Zovirax -) 400 mg PO BID [facility] Last Admin: 05/11/17 10:36 Dose: 400 mg Allopurinol (Zyloprim -) 100 mg PO DAILY [facility] Last Admin: 05/11/17 10:34 Dose: 100 mg Atenolol (Tenormin -) 50 mg PO DAILY [facility] Last Admin: 05/11/17 10:34 Dose: 50 mg Atorvastatin Calcium (Lipitor -) 20 mg PO HS [facility] Last Admin: 05/10/17 21:24 Dose: 20 mg Atorvastatin Calcium (Lipitor -) 10 mg PO DAILY [facility] Last Admin: 05/11/17 10:34 Dose: 10 mg Docusate Sodium (Colace -) 200 mg PO HS [facility] Last Admin: 05/10/17 21:24 Dose: 200 mg Fentanyl (Sublimaze Injection -) 25 mcg IVPUSH [id number] PRN PRN Reason: PAIN Fluconazole (Diflucan -) 400 mg PO DAILY [facility] Last Admin: 05/11/17 10:35 Dose: 400 mg Ampicillin Sodium/Sulbactam (Sodium 1.5 gm/ Sodium Chloride) 100 mls @ 200 mls/ hr IVPB Q6H-IV [facility] Last Admin: 05/11/17 15:00 Dose: 200 mls/hr Lactated Ringer's (Lactated Ringers Solution) 1,000 mls @ 75 mls/hr IV ASDIR [facility] Last Admin: 05/11/17 16:48 Dose: Not Given Ondansetron HCl (Zofran Injection) 4 mg IVPUSH Q6H PRN PRN Reason: NAUSEA AND/OR VOMITING Pantoprazole Sodium (Protonix -) 20 mg PO DAILY [facility] Last Admin: 05/11/17 10:34 Dose: 20 mg Promethazine HCl (Phenergan Injection -) 12.5 mg IVPUSH Q6H PRN PRN Reason: NAUSEA-FOR RESCUE AFTER 15 MIN Spironolactone (Aldactone -) 50 mg PO DAILY [facility] Last Admin: 05/11/17 10:34 Dose: 50 mg s/p Vanco 1 gm s/p Zosyn At ED on admission denies pain / feeling well Problem List - Problems (1) Ulcer of left foot Assessment/Plan: - s/p OR for I & D / bone bx will await c/s comtinue ABX discussed with ID will d/c on augmentin for 10 days - Ulcer of Foot -Chronic " On & Off for yrs " getting worse for last several weeks which prompted ER visit - r/o Osteomyelitis MRI suggestive of early OM elevated CRP / Sed rate ( 2/2 MDA??) will need to wait on Bx - ID consult for appreciated ABX per ID c/s & Bx done in OR -- will determine length of ABX - Podiatry follow up will arrange for out patient follow up Code(s): L97.529 - NON-PRESSURE CHRONIC ULCER OTH PRT LEFT FOOT W UNSP SEVERITY Qualifiers: Non-pressure ulcer stage: unspecified non-pressure ulcer stage Qualified Code(s): L97.529 - Non-pressure chronic ulcer of other part of left foot with unspecified severity (2) Infected ulcer of skin Assessment/Plan: follow c/s & bone Bx Code(s): L98.499 - NON-PRESSURE CHRONIC ULCER OF SKIN OF SITES W UNSP SEVERITY; L08.9 - LOCAL INFECTION OF THE SKIN AND SUBCUTANEOUS TISSUE, UNSP Qualifiers: Non-pressure ulcer stage: unspecified non-pressure ulcer stage Qualified Code(s): L98.499 - Non-pressure chronic ulcer of skin of other sites with unspecified severity; L08.9 - Local infection of the skin and subcutaneous tissue, unspecified; L08.9 - Local infection of the skin and subcutaneous tissue , unspecified (3) Cellulitis Code(s): L03.90 - CELLULITIS, UNSPECIFIED (4) HTN (hypertension) Assessment/Plan: well controlled EKG NSR no significant past Cardiac event continue medications Code(s): I10 - ESSENTIAL (PRIMARY) HYPERTENSION (5) HLD (hyperlipidemia) Code(s): E78.5 - HYPERLIPIDEMIA, UNSPECIFIED (6) MDS (myelodysplastic syndrome) Assessment/Plan: Followed by Dr Barnes Scheduled for Chemo on 05/18 Code(s): D46.9 - MYELODYSPLASTIC SYNDROME, UNSPECIFIED
[2017-05-11] MEDS: DOCUSATE SODIUM 100 MG CAPSULE (FP) PO SCH (21:37)
[2017-05-11] MEDS: ATORVASTATIN CA 20 MG TABLET (FP) PO SCH (21:37)
[2017-05-12] MEDS: AMPICILLIN NA/SULBACTAM NA 1.5 GM in SODIUM CHLORIDE 100 ML IVPB SCH ×2 (02:23→09:55)
--- NOTE | 2017-05-12 06:23 | OP ---
DATE OF OPERATION: 05/08/2017 SURGEON: Yonis Aguirre DPM HAM PUMPER: Tiago Mei, PGY3 PREOPERATIVE DIAGNOSIS: Left foot first metatarsal resected wound. POSTOPERATIVE DIAGNOSIS: Left foot first metatarsal resected wound. PROCEDURE: 1. Left first submetatarsal wound incision and drainage. 2. Left first submetatarsal wound debridement. 3. Left first metatarsal head bone biopsy. ANESTHESIA: IV with MAC. HEMOSTASIS: None. ESTIMATED BLOOD LOSS: 20 mL. MATERIAL: None. INJECTABLES: Preoperative injection 10 mL of 1:1 mix of 1% lidocaine plain and 0.5% Marcaine plain. POSTOPERATIVE INJECTION: 10 mL of 0.5% Marcaine plain. COMPLICATIONS: None. CONDITION: Stable. DESCRIPTION: The patient was brought to the operating room and placed supine on the operating table. After adequate IV sedation was obtained, a local infiltrative block was then administered through left foot utilizing a 1:1 mix of 1% lidocaine plain and 0.5% Marcaine plain. A total of 10 mL was used. Left foot was then prepped and draped in the usual aseptic fashion. Exsanguination of the left foot was performed with an Esmarch bandage, but the pneumatic ankle tourniquet was not used at this time. Attention was directed to the left foot first metatarsal, where the area of edema and fluctuance was located. An incision was made over this area and was deepened through blunt and sharp dissection to the level of the abscess. Care was taken during dissection to avoid damage to neurovascular and tendinous structures. The incision was deepened through the fascia and the abscess was identified and was incised. The abscess drained purulent fluid that appeared consistent with pus. After that, this was drained, the area was irrigated with normal saline, and deep tissue culture and Gram stain were taken and sent for culture and pathology. The area was inspected, and all devitalized soft tissue was sharply divided with No. 15 blade, and induced healthy bleeding from the wound bed. At this time, using No. 11 blade, a stab incision was made on the medial aspect of the left foot metatarsal head. With use of Daio bone marrow aspiration kit, of the bone was obtained and sent for both bone culture and bone pathology. After all areas of adequately drained and irrigated, the wound was irrigated with copious amount of normal saline with antibiotics given in the solution. The wound was packed with Gelfoam and left open to heal via secondary intention. Dry sterile dressing was applied with 4x4, ABD, Kerlix, and Camron bandage at this time. Patient tolerated the procedure well and left the PACU from operating room with all neurovascular status intact on the left foot. JARRELL Maradiaga/[id number]
[2017-05-12 07:21] LABS: MCH 30.8 pg (25.7-33.7); MCHC 33.5 g/dl (32.0-35.9); MEAN CELL VOLUME 91.9 fl (80-96); MEAN PLT VOLUME 7.5 fl (7.5-11.1); PLATELET COUNT 258 K/MM3 (134-434); RDW 16.3 % (11.9-15.9); WHITE BLOOD COUNT 4.8 K/mm3 (4.0-10.0)
[2017-05-12 07:40] LABS: ANION GAP 8 (8-16); CALCIUM 8.5 mg/dL (8.5-10.1); CO2 28 mmol/L (21-32); CREATININE 0.7 mg/dL (0.7-1.3); GLUCOSE,RANDOM 94 mg/dL (74-106)
[2017-05-12] MEDS ORDERED: PT OWN MED DRAWER 7, Y5N ONE ×2 (09:42→10:47)
[2017-05-12] MEDS ORDERED: AMOX TR/POT CLAV 875MG/125MG TABLETS (FP) PO SCH (09:45)
[2017-05-12 10:04] VITALS: TEMP 97.3
[2017-05-12] MEDS: SPIRONOLACTONE 25 MG TABLET (FP) PO SCH (10:06)
[2017-05-12] MEDS: ATORVASTATIN CA 10 MG TABLET (FP) PO SCH (10:06)
[2017-05-12] MEDS: PANTOPRAZOLE 20 MG TABLET (FP) PO SCH (10:06)
[2017-05-12] MEDS: ALLOPURINOL 100 MG TABLET (FP) PO SCH (10:07)
[2017-05-12] MEDS: FLUCONAZOLE 100 MG TABLET (UD) PO SCH (10:07)
[2017-05-12] MEDS: ACYCLOVIR 400 MG TABLET PO SCH (10:08)
--- NOTE | 2017-05-12 12:08 | CONSULT ---
Consult - text type - Consultation Consultation Note: Patient seen in bed. VSS Tmax 97.3 dressing clean dry and intact, awaiting bone biopsy om grade1-2 ulcer Will follow out patient. Dressing change daily vns. IVABX as per ID. Partial weight bearing left heel with walker. Read and appreciated medicine note.
[2017-05-12 12:55] VITALS: BP 124/59; PULSE 96
[2017-05-12] MEDS: ATENOLOL 50 MG TABLET (FP) PO SCH (12:55)
--- NOTE | 2017-05-12 18:46 | PATH ---
Surgical Pathology Report Patient Name: SAMM PALOMO [facility]. Rec. #: [id number] /Age/Gender: 1930 (Age: 86) / M Account: [id number] Location: [address] [place] [address]/[facility] Taken: 05/08/2017 Received: 05/11/2017 Reported: 05/12/2017 Physicians: Yonis Aguirre DPM Specimen(s) Received A: BONE BIOPSY LEFT FOOT B: DEBRIDED TISSUE LEFT FOOT Clinical History Rule out osteomyelitis Left foot ulcer Final Diagnosis A. BONE, LEFT FOOT, BIOPSY: BONE WITH SCANT FATTY MARROW AND FIBROMEMBRANOUS TISSUE. NO EVIDENCE OF ACUTE OSTEOMYELITIS. B. DEBRIDED TISSUE, LEFT FOOT, EXCISION: ACUTE PURULENT EXUDATE AND PORTION OF UNREMARKABLE SKIN. Electronically Signed Kim Cheema M.D. Gross Description A. Received in formalin labeled "left foot bone biopsy," is a 0.4 cm in length x 0.1 cm in diameter boudreaux, cylindrical portion of bone. The specimen is submitted in toto in one cassette, following decalcification. B. Received in formalin labeled "debrided tissue left foot," is a 2.5 x 1.6 x 0.1 cm aggregate of boudreaux, ulcerated skin fragments. Controls Design Engineer sections are submitted in one cassette. 05/11/201705/11/2017
== END 2017-05-12 15:06 | disposition home or self-care (01) | DRG 571 ==
LOC: JER 10:17 → JERBED 15:05 → J5S 17:48
PROVIDERS: ADMIT Family Medicine; ATTEND Family Medicine
PROC: 0JBR0ZZ Excision of Left Foot Subcutaneous Tissue and Fascia, Open Approach (ICD-10-PCS; 2017-05-08)
PROC: 0QBP0ZX Excision of Left Metatarsal, Open Approach, Diagnostic (ICD-10-PCS; principal; 2017-05-08 12:30)
DX: L97.521 Non-pressure chronic ulcer of other part of left foot limited to breakdown of skin (principal); L03.116 Cellulitis of left lower limb; L03.032 Cellulitis of left toe; B95.2 Enterococcus as the cause of diseases classified elsewhere; D46.9 Myelodysplastic syndrome, unspecified; I73.9 Peripheral vascular disease, unspecified; I10 Essential (primary) hypertension; E78.5 Hyperlipidemia, unspecified; K59.00 Constipation, unspecified; G62.9 Polyneuropathy, unspecified; J44.9 Chronic obstructive pulmonary disease, unspecified; M54.5 Low back pain; G89.29 Other chronic pain; Z87.891 Personal history of nicotine dependence
CPT/HCPCS: 36415; 71010-TC; 73630-TC-LT; 73723-LT; 80048; 80053; 83036; 83735; 85025; 85027; 85610; 85651; 85730; 86140; 86850; 86900; 86901; 87040; 87070; 87075; 87186; 87205; 88304-TC; 88305-TC; 88311-TC; 93005; 93010; 94760; 97116-GP; 97161-GP; 99283-25

== ENCOUNTER 2017-06-10 20:11 | Inpatient (IN) | payer OTHER ==
[2017-06-10 20:17] VITALS: BMI 21.6
--- NOTE | 2017-06-10 20:18 | PDOC ---
Rapid Medical Evaluation Time Seen by Provider: 06/10/17 20:12 Medical Evaluation: Allergies Allergy/AdvReac Type Severity Reaction Status Date / Time No Known Allergies Allergy Verified 05/05/17 11:21 06/10/17 20:13 I have performed a brief in-person evaluation of this patient. The patient presents with a chief complaint of: sent by [address] [place] [address], surgery to left ft 2-3 wks ago, swelling/pain to ft by crew leader MD Aguirre, no fever, chills, n/v/d Pertinent physical exam findings: I have ordered the following: CBC, CMP, lactic acid, blood cx, esr, ivf, foot x- ray The patient will proceed to the ED for further evaluation. Discharge Disposition - Diagnosis Acute postoperative pain of left foot - Referrals - Patient Instructions - Post Discharge Activity
[2017-06-10 20:41] LABS: BASO % 0.5 % (0-2.0); EOS % 4.7 % (0-4.5); MCH 33.6 pg (25.7-33.7); MCHC 33.8 g/dl (32.0-35.9); MEAN CELL VOLUME 99.5 fl (80-96); MEAN PLT VOLUME 8.2 fl (7.5-11.1); NEUT % 56.1 % (42.8-82.8); PLATELET COUNT 179 K/MM3 (134-434); RDW 19.6 % (11.9-15.9); WHITE BLOOD COUNT 3.1 K/mm3 (4.0-10.0)
[2017-06-10 20:56] LABS: INR 1.21 (0.82-1.09); PROTHROMBIN TIME (PATIENT) 13.7 SEC (9.98-11.88)
[2017-06-10 21:48] LABS: ALBUMIN 3.1 g/dl (3.4-5.0); ALK PHOS 122 U/L (45-117); ANION GAP 7 (8-16); BILIRUBIN,TOTAL 0.2 mg/dL (0.2-1.0); CALCIUM 8.4 mg/dL (8.5-10.1); CO2 24 mmol/L (21-32); CREATININE 1.3 mg/dL (0.7-1.3); GLUCOSE,RANDOM 134 mg/dL (74-106); SGOT/AST 13 U/L (15-37); SGPT/ALT 23 U/L (12-78)
--- NOTE | 2017-06-10 22:36 | PDOC ---
Attending Attestation - Resident Resident Name: oMe Kelly - ED Attending Attestation I have performed the following: I have examined & evaluated the patient, The case was reviewed & discussed with the resident, I agree w/resident's findings & plan, Exceptions are as noted - HPI HPI: 06/10/17 22:36 Pt with non-healing ulcer to ball of left foot. visiting nurse changes dressing, but wound is painful. - Physicial Exam PE: 06/10/17 22:39 *Physical Exam General Appearance: Yes: Appropriately Dressed. No: Apparent Distress, Intoxicated HEENT: positive: EOMI, TYREE, Normal ENT Inspection, Normal Voice, TMs Normal, Pharynx Normal. negative: Pale Conjunctivae, Photophobia, Scleral Icterus (R), Scleral Icterus (L) Neck: positive: Trachea midline, Normal Thyroid, Supple. negative: Tender, Rigid, Carotid bruit, Stridor, Lymphadenopathy (R), Lymphadenopathy (L), Thyromegaly Respiratory/Chest: positive: Lungs Clear, Normal Breath Sounds. negative: Chest Tender, Respiratory Distress, Accessory Muscle Use, Labored Respiration, RES, Crackles, Rales, Rhonchi, Stridor, Wheezing, Dullness Cardiovascular: positive: Regular Rhythm, Regular Rate, S1, S2. negative: Edema , JVD, Murmur, Bradycardia, Tachycardia Vascular Pulses: Dorsalis-Pedis (R): 2+, Doralis-Pedis (L): 2+ Gastrointestinal/Abdominal: positive: Normal Bowel Sounds, Flat, Soft. negative : Tender, Organomegaly, Pulsatile Mass, Increased Bowel Sounds, Decreased BS, Distended, Guarding, Rebound, Hernia, Hepatomegaly, Spleenomegaly Lymphatic: negative: Adenopathy, Tenderness Musculoskeletal: positive: Normal Inspection. negative: CVA Tenderness, Decreased Range of Motion Extremity: positive: Normal Capillary Refill, Normal Inspection, Normal Range of Motion, Pelvis Stable. left foot appears scaly and erthyematous , + open wound to base of left foot. negative: Tender, Pedal Edema, Swelling, Erythema Integumentary: positive: Normal Color, Dry, Warm. negative: Cyanotic, Erythema , Jaundice, Rash Neurologic: positive: engineer internship II-XII NML intact, Fully Oriented, Alert, Normal Mood/ Affect, Motor Strength 5/5. negative: EOM Palsy, Facial Droop, Sensory Deficit 06/10/17 23:55 - Medical Decision Making 06/10/17 23:58 Pt to be admitted.
[2017-06-10] MEDS ORDERED: VANCOMYCIN 1,500 MG in DEXTROSE 5%-WATER - 500 ML IVPB ONE (22:39)
--- NOTE | 2017-06-10 22:47 | PDOC ---
History of Present Illness - General Chief Complaint: Pain Stated Complaint: PAIN Time Seen by Provider: 06/10/17 20:12 History Source: Patient Exam Limitations: No Limitations - History of Present Illness Initial Comments: 06/10/17 22:50 86M, with PMH of HTN, HLD, chronic constipation, and MDS (receiving chemotherapy every 3 weeks for 7 months), who presents to the ED from [address] [place] [address], with increased edema and increased pain to wound on ball of the left foot for about 5 weeks. The patient states he noticed a blister to the site many months ago which he reports callused over after hiking with his . 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 The patient reports the pain is localized to the ball of the foot under the big toe. He denies any swelling or pain radiation. He reports the pain is 8/10 and exacerbated with walking. He presented to the ED last month with the same complaint. Wound tested positive for enterococcus feacalis. 06/10/17 22:54 06/11/17 02:31 Past History - Past Medical History Allergies/Adverse Reactions: Allergies Allergy/AdvReac Type Severity Reaction Status Date / Time No Known Allergies Allergy Verified 05/05/17 11:21 Home Medications: Ambulatory Orders Allopurinol [Zyloprim -] 100 mg PO DAILY 06/10/17 Atenolol [Tenormin] 50 mg PO DAILY 06/10/17 Cholecalciferol (Vitamin D3) [Vitamin D3] 10,000 unit PO WEEKLY 06/10/17 Fluconazole 200 mg PO DAILY 06/10/17 Promethazine HCl 25 mg PO PRN 06/10/17 Simvastatin 20 mg PO HS 06/10/17 Spironolactone [Aldactone] 50 mg PO DAILY 06/10/17 Vits A,C,E/Lutein/Minerals [I-Pauline Tablet] 1 each PO DAILY 06/10/17 Cancer: Yes (MDS "Chemo") COPD: No HTN: Yes - Surgical History Appendectomy: Yes - Immunization History Immunization Up to Date: Yes - Suicide/Smoking/Psychosocial Hx Smoking History: Former smoker Have you smoked in the past 12 months: No Information on smoking cessation initiated: No Hx Alcohol Use: No Drug/Substance Use Hx: No Substance Use Type: None Review of Systems - Review of Systems Able to Perform ROS?: Yes Is the patient limited Irish proficient: No Constitutional: No: Symptoms Reported HEENTM: No: Symptoms Reported Respiratory: No: Symptoms reported Cardiac (ROS): No: Symptoms Reported ABD/GI: No: Symptoms Reported : No: Symptoms Reported Musculoskeletal: No: Symptoms Reported Integumentary: No: Symptoms Reported Neurological: No: Symptoms reported All Other Systems: Reviewed and Negative *Physical Exam - Vital Signs Last Vital Signs Temp Pulse Resp BP Pulse Ox 97.9 F 68 17 130/49 99 06/10/17 20:15 06/10/17 20:15 06/10/17 20:15 06/10/17 20:15 06/10/17 20:15 - Physical Exam General Appearance: Yes: Nourished, Appropriately Dressed. No: Apparent Distress HEENT: positive: EOMI, TYREE, Normal ENT Inspection Neck: negative: Tender Respiratory/Chest: positive: Lungs Clear, Normal Breath Sounds. negative: Chest Tender Cardiovascular: positive: Regular Rhythm, Bradycardia Vascular Pulses: Dorsalis-Pedis (R): 2+, Doralis-Pedis (L): 2+ Musculoskeletal: positive: Normal Inspection Extremity: positive: Pedal Edema, Swelling, Calf Tenderness, Erythema, Inflammation (of left lower leg. cellulitis (red and hot skin). Wound under ball of left foot is 2.5cm in diameter, non-purulent.) Integumentary: positive: Dry, Warm, Cyanotic, Erythema Neurologic: positive: Fully Oriented, Alert, Normal Mood/Affect ED Treatment Course - LABORATORY CBC & Chemistry Diagram: 06/10/17 20:30 06/10/17 20:30 - ADDITIONAL ORDERS Additional order review: Laboratory Results 06/10/17 06/10/17 20:30 20:30 PT with INR 13.70 H INR 1.21 H Sodium 137 Potassium 4.7 Chloride 106 Carbon Dioxide 24 Anion Gap 7 L BUN 34 H D Creatinine 1.3 D Creat Clearance w eGFR 52.59 Random Glucose 134 H D Calcium 8.4 L Total Bilirubin 0.2 D AST 13 L ALT 23 Alkaline Phosphatase 122 H Total Protein 6.0 L Albumin 3.1 L 06/10/17 20:30 RBC 2.40 L MCV 99.5 H D MCHC 33.8 RDW 19.6 H D MPV 8.2 Neutrophils % 56.1 D Lymphocytes % 30.8 D Monocytes % 7.9 Eosinophils % 4.7 H D Basophils % 0.5 Medical Decision Making - Medical Decision Making 06/11/17 02:32 86M, with PMH of HTN, HLD, chronic constipation, and MDS presents to the ED for non-healing ulcer of the right foot. Patient is immunocompromised and left leg is clearly cellulitic. Patient started on Vancomycin. Spoke to Dr. Fernandez who accepted that the patient be admitted under her to MEd /surg *DC/Admit/Observation/Transfer Diagnosis at time of Disposition: Acute postoperative pain of left foot - Discharge Dispostion Admit: Yes - Referrals - Patient Instructions - Post Discharge Activity
[2017-06-10] MEDS ORDERED: ONDANSETRON 4 MG/2 ML VIAL IVPUSH STA (23:50)
[2017-06-10] MEDS ORDERED: morphine CARPU-JECT 2 MG/1 ML DISP.SYRIN IVPUSH ONE (23:50)
--- NOTE | 2017-06-11 00:24 | HP ---
Admitting History and Physical - Admission Chief Complaint: nonhealing wound History of Present Illness: The patient is a 86 year old male, with PMH of HTN, HLD, chronic constipation, and MDS (receiving chemotherapy every 3 weeks for 6 months), who presents to the ED from [address] [place] [address], with increased edema and increased pain to wound on ball of the left foot for about 5 week. The patient states he noticed a blister to the site many months ago which he reports callused over after hiking with his . 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 The patient reports the pain is localized to the ball of the foot under the big toe. He denies any swelling or pain radiation. He reports the pain is 8/10 and exacerbated with walking. He presented to the ED last month with the same complaint. He was admitted and treatment initiated and arranged for home wound care. Wound has not healed, increased erythema and pain has prompted ER visit Wound tested positive for enterococcus feacalis. History Source: Patient Limitations to Obtaining History: No Limitations - Past Medical History Cardiovascular: Yes: HTN Gastrointestinal: Yes: Constipation Heme/Onc: Yes: Current Chemotherapy, Myeloproliferative Synd - Smoking History Smoking history: Former smoker Have you smoked in the past 12 months: No - Alcohol/Substance Use Hx Alcohol Use: No - Social History History of Recent Travel: No Home Medications - Allergies Allergies/Adverse Reactions: Allergies Allergy/AdvReac Type Severity Reaction Status Date / Time No Known Allergies Allergy Verified 05/05/17 11:21 - Home Medications Home Medications: Ambulatory Orders Allopurinol [Zyloprim -] 100 mg PO DAILY 06/10/17 Atenolol [Tenormin] 50 mg PO DAILY 06/10/17 Cholecalciferol (Vitamin D3) [Vitamin D3] 10,000 unit PO WEEKLY 06/10/17 Fluconazole 200 mg PO DAILY 06/10/17 Promethazine HCl 25 mg PO PRN 06/10/17 Simvastatin 20 mg PO HS 06/10/17 Spironolactone [Aldactone] 50 mg PO DAILY 06/10/17 Vits A,C,E/Lutein/Minerals [I-Pauline Tablet] 1 each PO DAILY 06/10/17 Review of Systems - Review of Systems Constitutional: reports: No Symptoms. denies: Chills, Diaphoresis Eyes: reports: No Symptoms HENT: reports: No Symptoms Neck: reports: No Symptoms Cardiovascular: reports: No Symptoms Respiratory: reports: No Symptoms Gastrointestinal: reports: No Symptoms Genitourinary: reports: No Symptoms Breasts: reports: No Symptoms Reported Musculoskeletal: reports: Joint Pain Integumentary: reports: Erythema, Wound Neurological: reports: No Symptoms Endocrine: reports: No Symptoms Physical Examination Vital Signs: Vital Signs Temperature 97.9 F 06/10/17 20:15 Pulse Rate 68 06/10/17 20:15 Respiratory Rate 17 06/10/17 20:15 Blood Pressure 130/49 06/10/17 20:15 O2 Sat by Pulse Oximetry (%) 99 06/10/17 20:15 Labs: CBC, BMP 06/10/17 20:30 06/10/17 20:30 Problem List - Problems (1) Cellulitis Code(s): L03.90 - CELLULITIS, UNSPECIFIED (2) HLD (hyperlipidemia) Code(s): E78.5 - HYPERLIPIDEMIA, UNSPECIFIED (3) HTN (hypertension) Code(s): I10 - ESSENTIAL (PRIMARY) HYPERTENSION (4) Infected ulcer of skin Code(s): L98.499 - NON-PRESSURE CHRONIC ULCER OF SKIN OF SITES W UNSP SEVERITY; L08.9 - LOCAL INFECTION OF THE SKIN AND SUBCUTANEOUS TISSUE, UNSP Qualifiers: Non-pressure ulcer stage: unspecified non-pressure ulcer stage Qualified Code(s): L98.499 - Non-pressure chronic ulcer of skin of other sites with unspecified severity; L08.9 - Local infection of the skin and subcutaneous tissue, unspecified; L08.9 - Local infection of the skin and subcutaneous tissue , unspecified (5) MDS (myelodysplastic syndrome) Code(s): D46.9 - MYELODYSPLASTIC SYNDROME, UNSPECIFIED
[2017-06-11] MEDS ORDERED: ONDANSETRON 4 MG/2 ML VIAL ONE (00:37)
[2017-06-11] MEDS ORDERED: morphine CARPU-JECT 8 MG/1 ML DISP.SYRIN ONE (00:37)
[2017-06-11] MEDS: SPIRONOLACTONE 25 MG TABLET (FP) PO SCH (09:10)
[2017-06-11] MEDS: ALLOPURINOL 100 MG TABLET (FP) PO SCH (09:10)
[2017-06-11] MEDS: FLUCONAZOLE 100 MG TABLET (UD) PO SCH (09:11)
[2017-06-11] MEDS: ATENOLOL 50 MG TABLET (FP) PO SCH (09:11)
--- NOTE | 2017-06-11 10:10 | PN ---
Progress Note, Physician Chief Complaint: ID Full note dictated Left metatarsal resection 05/08 negative for osteo History of MDS - Current Medication List Current Medications: Active Medications Allopurinol (Zyloprim -) 100 mg PO DAILY [facility] Last Admin: 06/11/17 09:10 Dose: 100 mg Atenolol (Tenormin -) 50 mg PO DAILY [facility] Last Admin: 06/11/17 09:11 Dose: 50 mg Atorvastatin Calcium (Lipitor -) 20 mg PO [facility] Fluconazole (Diflucan -) 200 mg PO DAILY [facility] Last Admin: 06/11/17 09:11 Dose: 200 mg Spironolactone (Aldactone -) 25 mg PO DAILY [facility] Last Admin: 06/11/17 09:10 Dose: 25 mg - Objective Vital Signs: Vital Signs Temperature 98.3 F 06/11/17 08:49 Pulse Rate 65 06/11/17 08:49 Respiratory Rate 20 06/11/17 08:49 Blood Pressure 111/57 06/11/17 08:49 O2 Sat by Pulse Oximetry (%) 96 06/11/17 06:54 Extremities: Yes: Other (MEtatarsal plantar ulcer with drainage Erythema swelling of foot ankle and LLE) Labs: CBC, BMP 06/10/17 20:30 06/10/17 20:30 INR, PTT INR 1.21 (0.82-1.09) H 06/10/17 20:30 Problem List - Problems (1) Cellulitis Code(s): L03.90 - CELLULITIS, UNSPECIFIED (2) MDS (myelodysplastic syndrome) Code(s): D46.9 - MYELODYSPLASTIC SYNDROME, UNSPECIFIED (3) Ulcer of left foot Code(s): L97.529 - NON-PRESSURE CHRONIC ULCER OTH PRT LEFT FOOT W UNSP SEVERITY Qualifiers: Non-pressure ulcer stage: unspecified non-pressure ulcer stage Qualified Code(s): L97.529 - Non-pressure chronic ulcer of other part of left foot with unspecified severity Assessment/Plan Microbiology 05/08/17 15:30 Tissue-Other Gram Stain - Final 05/08/17 15:30 Tissue-Other Anaerobic Culture - Final Enterococcus Faecalis NO ANAEROBES WERE ISOLATED 05/07/17 15:30 Foot - Left Plantar Gram Stain - Final 05/07/17 15:30 Foot - Left Plantar Wound Culture - Final Enterococcus Faecalis 05/05/17 11:34 Foot - Left Plantar Gram Stain - Final 05/05/17 11:34 Foot - Left Plantar Wound Culture - Final Enterococcus Faecalis Staphylococcus Coagulase Neg Laboratory Tests 06/10/17 06/10/17 06/10/17 20:30 20:30 20:30 WBC 3.1 L D Hgb 8.1 L Hct 23.9 L Plt Count 179 D ESR 130 H Creatinine 1.3 D Creat Clearance w eGFR 52.59 Alkaline Phosphatase 122 H Total Protein 6.0 L Albumin 3.1 L Assessment Plantar ulcer with cellulitis in setting of MDS recent debridment resection of ulcer in Nov Plan Wound culture Surgical follow up Filippo Wallace MD
--- NOTE | 2017-06-11 12:16 | CONS ---
DATE OF CONSULTATION: HISTORY: This is an 86-year-old male with a history of myelodysplastic syndrome receiving chemotherapy who presents with increasing redness, swelling, and pain on the plantar aspect of the left foot over the last several weeks. He was apparently admitted in April and found to have a plantar ulcer at that time. He had surgical evaluation, which included a metatarsal resection on or about May 08. Pathology from the bone biopsy showed no evidence of osteomyelitis. An MRI was done at that time was equivocal for osteomyelitis, and the patient was discharged with a plan not to treat him for osteomyelitis. He is admitted now with increasing redness and pain of the right foot in the absence of any fevers or chills. PAST MEDICAL HISTORY: Includes hypertension, hyperlipidemia, myelodysplastic syndrome on chemotherapy. CURRENT MEDICATIONS: Allopurinol, atenolol, simvastatin. ALLERGIES: None known. SOCIAL HISTORY: No travel. A resident of a residential facility. Former smoker. No history of alcohol abuse. FAMILY HISTORY: Noncontributory. REVIEW OF SYSTEMS: Respiratory: No cough or shortness of breath. Cardiac: No chest pain, palpitations, syncope. Gastrointestinal: No nausea, vomiting, diarrhea, weight loss. Genitourinary: No dysuria, hematuria, urinary frequency. PHYSICAL EXAMINATION: General: He is an alert male in no acute distress. Vital Signs: The temperature is 98.3, pulse 65, blood pressure 111/57, respirations 20. Neck: Supple without adenopathy. Lungs: Clear to P and A. Heart: S1, S2. Regular rhythm without murmur or gallop. Abdomen: Soft and nontender. Positive bowel sounds. No organomegaly. Extremities: Reveal diffuse erythema and swelling of the left lower extremity extending in and around the ankle involving the foot. That same area had a confluent erythema, chronic venostasis changes noted bilaterally, and a left plantar metatarsal ulcer with drainage noted. The area was tender to touch. LABORATORY DATA: The BUN was 34, creatinine 1.3, white count 3.1, hemoglobin 8.1, platelets 179 with 56% polys, 31% lymphocytes, ESR 130. ASSESSMENT: An 86-year-old male with known myelodysplastic syndrome getting chemotherapy who presents with an infected plantar ulcer with secondary cellulitis of the left lower extremity. Recent surgery with resection done mid-April. Osteomyelitis ruled out at that time. Wound cultures positive for Enterococcus faecalis. Sensitivities noted, sensitive to ampicillin. The patient will be empirically treated for now with vancomycin and Zosyn. A wound culture has been ordered, and surgery should be requested once a day for surgical re-evaluation of the wound and the need for possible debridement. BERNARD MARTINEZ M.D. RIDDHI/[id number]
[2017-06-11] MEDS: PIPERACILLIN/TAZOB 3.375 GM 3.375 GM in DEXTROSE 5%-WATER - 100 ML IVPB SCH ×2 (14:01→18:21)
--- NOTE | 2017-06-11 16:30 | EKG ---
Test Reason : Blood Pressure : / mmHG Vent. Rate : 058 BPM Atrial Rate : 058 BPM P-R Int : 176 ms QRS Dur : 078 ms QT Int : 394 ms P-R-T Axes : 061 042 070 degrees QTc Int : 386 ms SINUS BRADYCARDIA OTHERWISE NORMAL ECG WHEN COMPARED WITH ECG OF 07-MAY-2017 17:19, NO SIGNIFICANT CHANGE WAS FOUND Confirmed by GERARDO MONDRAGON MD ([id number]) on 06/11/2017 4:29:36 PM Referred By: Confirmed By:GERARDO MONDRAGON MD
--- NOTE | 2017-06-11 17:28 | PN ---
Progress Note (short form) - Note Progress Note: Vascular Surgery Pt seen and examined. Recent surgery by podiatry on first metatarsal head. Consult placed for dr. marino. Wound is clean, pink, with granulation. Palpable DP and PT pulse. OR biopsy was neg for osteomyletis. Santyl to wound daily. Podiatry followup. Lex Read DO
[2017-06-11] MEDS ORDERED: PT OWN MED DRAWER 7, Y5N ONE ×2 (17:57→18:27)
[2017-06-11] MEDS: COLLAGENASE CLOSTRIDIUM HIST. 30 GRAMS TUBE TP SCH (18:21)
[2017-06-11] MEDS: ATORVASTATIN CA 20 MG TABLET (FP) PO SCH (21:02)
--- NOTE | 2017-06-12 01:18 | PN ---
Progress Note (short form) - Note Progress Note: ID and vascular consult appreciated patient states reduced swelling to left LLE since time of admission has attempted to reduce ambulation as out patient but states wound never healed Vital Signs Period Temp Pulse Resp BP Sys/Rios Pulse Ox Last 24 Hr 62 F-98.7 F 59-72 20-20 96-149/50-70 96-98 comfortable sitting on bed having dinnerneck - JVD heart S1/S2 lungs clear bilat abd soft non tender ext left leg swollen to knee +2 pitting ++warmth to LLE / dressing to left foot CBC, BMP 06/10/17 20:30 06/10/17 20:30 Microbiology 06/10/17 20:30 Blood - Peripheral Venous Blood Culture - Preliminary NO GROWTH OBTAINED AFTER 24 HOURS, INCUBATION TO CONTINUE FOR 4 DAYS. 06/10/17 20:30 Blood - Peripheral Venous Blood Culture - Preliminary NO GROWTH OBTAINED AFTER 24 HOURS, INCUBATION TO CONTINUE FOR 4 DAYS. Active Medications Allopurinol (Zyloprim -) 100 mg PO DAILY [facility] Last Admin: 06/11/17 09:10 Dose: 100 mg Atenolol (Tenormin -) 50 mg PO DAILY [facility] Last Admin: 06/11/17 09:11 Dose: 50 mg Atorvastatin Calcium (Lipitor -) 20 mg PO HS [facility] Last Admin: 06/11/17 21:02 Dose: 20 mg Collagenase (Santyl -) 1 applic TP DAILY [facility] Last Admin: 06/11/17 18:21 Dose: 1 applic Fluconazole (Diflucan -) 200 mg PO DAILY [facility] Last Admin: 06/11/17 09:11 Dose: 200 mg Vancomycin HCl 1,250 mg/ (Dextrose) 250 mls @ 166.667 mls/hr IVPB DAILY [facility] PRN Reason: Protocol Piperacillin Sod/Tazobactam (Sod 3.375 gm/ Dextrose) 100 mls @ 200 mls/hr IVPB Q8H-IV [facility] PRN Reason: Protocol Last Admin: 06/11/17 18:21 Dose: 200 mls/hr Spironolactone (Aldactone -) 25 mg PO DAILY [facility] Last Admin: 06/11/17 09:10 Dose: 25 mg
[2017-06-12] MEDS ORDERED: PT OWN MED DRAWER 7, Y5N ONE ×4 (01:36→17:28)
[2017-06-12] MEDS: PIPERACILLIN/TAZOB 3.375 GM 3.375 GM in DEXTROSE 5%-WATER - 100 ML IVPB SCH ×3 (01:40→20:30)
[2017-06-12 08:02] LABS: BASO % 0.7 % (0-2.0); EOS # 0.2 # (0-4.5); EOS % 5.3 % (0-4.5); MCH 33.2 pg (25.7-33.7); MCHC 33.8 g/dl (32.0-35.9); MEAN CELL VOLUME 98.5 fl (80-96); MEAN PLT VOLUME 8.1 fl (7.5-11.1); MONO # 0.3 # (3.8-10.2); NEUT # 1.4 # (42.8-82.8); NEUT % 50.1 % (42.8-82.8); PLATELET COUNT 169 K/MM3 (134-434); RDW 19.3 % (11.9-15.9); WHITE BLOOD COUNT 2.9 K/mm3 (4.0-10.0)
[2017-06-12 08:31] LABS: ANION GAP 10 (8-16); CALCIUM 8.8 mg/dL (8.5-10.1); CO2 24 mmol/L (21-32); GLUCOSE,RANDOM 92 mg/dL (74-106)
[2017-06-12 08:32] LABS: CREATININE 0.9 mg/dL (0.7-1.3)
[2017-06-12] MEDS: ATENOLOL 50 MG TABLET (FP) PO SCH (09:28)
[2017-06-12] MEDS: SPIRONOLACTONE 25 MG TABLET (FP) PO SCH (09:28)
[2017-06-12] MEDS: FLUCONAZOLE 100 MG TABLET (UD) PO SCH (09:28)
[2017-06-12] MEDS: ALLOPURINOL 100 MG TABLET (FP) PO SCH (09:29)
--- NOTE | 2017-06-12 10:12 | CONSULT ---
Consult - text type - Consultation Consultation Note: Patient seen in bed after being consulted by Vascular and PMD. Tmax 98.0 grade 2-3 wound size of a quarter sub met 1, +erythema/cellulitis, -drainage, + tender, grade 2-3 ulceration r/o om pvd mri betadine dressing left foot awaiting wound culture ID consult for abx. will follow. Patient needs to offload foot to heal. vascular on case Thank you for consult.
[2017-06-12] MEDS: VANCOMYCIN 1,250 MG in DEXTROSE 5%-WATER - 250 ML IVPB SCH (11:15)
[2017-06-12] MEDS: COLLAGENASE CLOSTRIDIUM HIST. 30 GRAMS TUBE TP SCH (12:27)
--- NOTE | 2017-06-12 15:03 | PN ---
Teaching Attending Note Name of Resident: Mnoica Choudhury ATTENDING PHYSICIAN STATEMENT I saw and evaluated the patient. I reviewed the resident's note and discussed the case with the resident. I agree with the resident's findings and plan as documented. SUBJECTIVE:Seen by podiatry with plan to off load foot Vanco Zosyn day 1 OBJECTIVE: ASSESSMENT AND PLAN: Selected Entries 06/12/17 14:58 Temperature 98.1 F Pulse Rate 64 Respiratory 18 Rate Blood Pressure 116/51 Microbiology 06/10/17 20:30 Blood - Peripheral Venous Blood Culture - Preliminary NO GROWTH OBTAINED AFTER 24 HOURS, INCUBATION TO CONTINUE FOR 4 DAYS. 06/10/17 20:30 Blood - Peripheral Venous Blood Culture - Preliminary NO GROWTH OBTAINED AFTER 24 HOURS, INCUBATION TO CONTINUE FOR 4 DAYS. Laboratory Tests 06/12/17 06/12/17 06:15 06:15 WBC 2.9 L Hct 24.3 L Plt Count 169 BUN 16 D Creatinine 0.9 D Assessment Plantar ulcer infected with cellultisis Plan Pending wound c/s Continue current therapy and check Vanco trough Problem List - Problems (1) Cellulitis Code(s): L03.90 - CELLULITIS, UNSPECIFIED (2) MDS (myelodysplastic syndrome) Code(s): D46.9 - MYELODYSPLASTIC SYNDROME, UNSPECIFIED (3) Ulcer of left foot Code(s): L97.529 - NON-PRESSURE CHRONIC ULCER OTH PRT LEFT FOOT W UNSP SEVERITY Qualifiers: Non-pressure ulcer stage: unspecified non-pressure ulcer stage Qualified Code(s): L97.529 - Non-pressure chronic ulcer of other part of left foot with unspecified severity
--- NOTE | 2017-06-12 15:10 | PN ---
Physical Exam: SUBJECTIVE: Patient seen and examined at bedside. States that he is feeling "okay." Denies GALEANO, fever, chills, SOB, or lower extremity pain. Seen by surgery this AM. Dressing on LLE intact. OBJECTIVE: Vital Signs Period Temp Pulse Resp BP Sys/Rios Pulse Ox Last 24 Hr 62 F-98.2 F 59-82 18-20 107-121/50-55 98 GENERAL: The patient is awake, alert, and fully oriented, in no acute distress. HEAD: Normal with no signs of trauma. EYES: PERRL, extraocular movements intact, sclera anicteric, conjunctiva clear. ENT: Ears normal, nares patent, oropharynx clear without exudates, moist mucous membranes. NECK: Trachea midline, full range of motion, supple. LUNGS: Breath sounds equal, clear to auscultation bilaterally, no wheezes, no crackles, no accessory muscle use. HEART: Regular rate and rhythm, S1, S2 without murmur, rub or gallop. ABDOMEN: Soft, nontender, nondistended, normoactive bowel sounds, no guarding, no rebound EXTREMITIES: 2+ R posterior tibial pulse, warm, well-perfused, no edema. LLE dressing intact without drainage. NEUROLOGICAL: Cranial nerves II through XII grossly intact. Laboratory Results - last 24 hr 06/12/17 06/12/17 06:15 06:15 WBC 2.9 L RBC 2.46 L Hgb 8.2 L Hct 24.3 L MCV 98.5 H MCH 33.2 MCHC 33.8 RDW 19.3 H Plt Count 169 MPV 8.1 Absolute Neuts (auto) 1.4 L Absolute Lymphs (auto) 1.0 L Absolute Monos (auto) 0.3 L Absolute Eos (auto) 0.2 Absolute Basos (auto) 0.0 L Neutrophils % 50.1 Lymphocytes % 34.2 Monocytes % 9.7 Eosinophils % 5.3 H Basophils % 0.7 Sodium 139 Potassium 4.4 Chloride 105 Carbon Dioxide 24 Anion Gap 10 BUN 16 D Creatinine 0.9 D Random Glucose 92 D Calcium 8.8 Active Medications Generic Name Dose Route Start Last Admin Trade Name Freq PRN Reason Stop Dose Admin Allopurinol 100 mg 06/11/17 10:00 06/12/17 09:29 Zyloprim - PO 100 mg DAILY MEETA Administration Atenolol 50 mg 06/11/17 10:00 06/12/17 09:28 Tenormin - PO 50 mg DAILY MEETA Administration Atorvastatin Calcium 20 mg 06/11/17 22:00 06/11/17 21:02 Lipitor - PO 20 mg HS MEETA Administration Collagenase 1 applic 06/11/17 17:30 06/12/17 12:27 Santyl - TP Not Given DAILY MEETA Fluconazole 200 mg 06/11/17 10:00 06/12/17 09:28 Diflucan - PO 200 mg DAILY MEETA Administration Vancomycin HCl 1,250 mg/ 250 mls @ 166.667 mls/hr 06/12/17 10:00 06/12/17 11: 15 Dextrose IVPB 166.667 mls/hr DAILY MEETA Administration Protocol Piperacillin Sod/Tazobactam 100 mls @ 200 mls/hr 06/11/17 11:15 06/12/17 11: 15 Sod 3.375 gm/ Dextrose IVPB 200 mls/hr Q8H-IV MEETA Administration Protocol Spironolactone 25 mg 06/11/17 10:00 06/12/17 09:28 Aldactone - PO 25 mg DAILY MEETA Administration Microbiology 06/10/17 20:30 Blood - Peripheral Venous Blood Culture - Preliminary NO GROWTH OBTAINED AFTER 24 HOURS, INCUBATION TO CONTINUE FOR 4 DAYS. 06/10/17 20:30 Blood - Peripheral Venous Blood Culture - Preliminary NO GROWTH OBTAINED AFTER 24 HOURS, INCUBATION TO CONTINUE FOR 4 DAYS. ASSESSMENT/PLAN: #L Plantar ulcer infected with cellulitis -Vanco and zosyn Day1 -off loading of foot to improve healing -Surgical f/u -F/u wound cx -F/u vanco trough -Blood cx currently (-) -?MRI Thank you Monica Choudhury MD PGY-1 ID Team Visit type - Emergency Visit Emergency Visit: No - New Patient This patient is new to me today: Yes Date on this admission: 06/12/17 - Critical Care Critical Care patient: No
[2017-06-12] MEDS: ATORVASTATIN CA 20 MG TABLET (FP) PO SCH (21:19)
--- NOTE | 2017-06-12 23:24 | PN ---
Progress Note (short form) - Note Progress Note: ID and vascular consult appreciated case discussed today with daughter aware need to wait for c/s with consideration of OM -- which would result in need for senior care Abx discussed with daughter and patient both appear to understand Vital Signs Period Temp Pulse Resp BP Sys/Rios Pulse Ox Last 24 Hr 62 F-98.7 F 59-72 20-20 96-149/50-70 96-98 comfortable sitting on bed - JVD heart S1/S2 lungs clear bilat abd soft non tender ext left leg swollen to knee +2 pitting ++warmth to LLE / dressing to left foot CBC, BMP 06/12/17 06:15 06/12/17 06:15 Microbiology 06/10/17 20:30 Blood - Peripheral Venous Blood Culture - Preliminary NO GROWTH OBTAINED AFTER 24 HOURS, INCUBATION TO CONTINUE FOR 4 DAYS. 06/10/17 20:30 Blood - Peripheral Venous Blood Culture - Preliminary NO GROWTH OBTAINED AFTER 24 HOURS, INCUBATION TO CONTINUE FOR 4 DAYS. Active Medications Allopurinol (Zyloprim -) 100 mg PO DAILY [facility] Last Admin: 06/11/17 09:10 Dose: 100 mg Atenolol (Tenormin -) 50 mg PO DAILY MEETA Last Admin: 06/11/17 09:11 Dose: 50 mg Atorvastatin Calcium (Lipitor -) 20 mg PO HS [facility] Last Admin: 06/11/17 21:02 Dose: 20 mg Collagenase (Santyl -) 1 applic TP DAILY [facility] Last Admin: 06/11/17 18:21 Dose: 1 applic Fluconazole (Diflucan -) 200 mg PO DAILY [facility] Last Admin: 06/11/17 09:11 Dose: 200 mg Vancomycin HCl 1,250 mg/ (Dextrose) 250 mls @ 166.667 mls/hr IVPB DAILY ME[facility] PRN Reason: Protocol Piperacillin Sod/Tazobactam (Sod 3.375 gm/ Dextrose) 100 mls @ 200 mls/hr IVPB Q8H-IV MEETA PRN Reason: Protocol Last Admin: 06/11/17 18:21 Dose: 200 mls/hr Spironolactone (Aldactone -) 25 mg PO DAILY [facility] Last Admin: 06/11/17 09:10 Dose: 25 mg # non healing wound r/o OM immunosuppressed AbX as per ID vascular and podiatry opinion appreciated # MDS scheduled for chemo next week - however currently on HOLD discussed with Eve ( [place] ) not rescheduled at this time Problem List - Problems (1) Cellulitis Code(s): L03.90 - CELLULITIS, UNSPECIFIED (2) HLD (hyperlipidemia) Code(s): E78.5 - HYPERLIPIDEMIA, UNSPECIFIED (3) HTN (hypertension) Code(s): I10 - ESSENTIAL (PRIMARY) HYPERTENSION (4) Infected ulcer of skin Code(s): L98.499 - NON-PRESSURE CHRONIC ULCER OF SKIN OF SITES W UNSP SEVERITY; L08.9 - LOCAL INFECTION OF THE SKIN AND SUBCUTANEOUS TISSUE, UNSP Qualifiers: Non-pressure ulcer stage: unspecified non-pressure ulcer stage Qualified Code(s): L98.499 - Non-pressure chronic ulcer of skin of other sites with unspecified severity; L08.9 - Local infection of the skin and subcutaneous tissue, unspecified; L08.9 - Local infection of the skin and subcutaneous tissue , unspecified (5) MDS (myelodysplastic syndrome) Code(s): D46.9 - MYELODYSPLASTIC SYNDROME, UNSPECIFIED
[2017-06-13] MEDS: PIPERACILLIN/TAZOB 3.375 GM 3.375 GM in DEXTROSE 5%-WATER - 100 ML IVPB SCH ×2 (01:14→09:32)
[2017-06-13] MEDS ORDERED: PT OWN MED DRAWER 7, Y5N ONE ×2 (06:46→09:30)
[2017-06-13] MEDS: ATENOLOL 50 MG TABLET (FP) PO SCH (09:31)
[2017-06-13] MEDS: SPIRONOLACTONE 25 MG TABLET (FP) PO SCH (09:31)
[2017-06-13] MEDS: ALLOPURINOL 100 MG TABLET (FP) PO SCH (09:31)
[2017-06-13] MEDS: FLUCONAZOLE 100 MG TABLET (UD) PO SCH (09:32)
[2017-06-13] MEDS: VANCOMYCIN 1,250 MG in DEXTROSE 5%-WATER - 250 ML IVPB SCH (10:59)
[2017-06-13] MEDS: ATORVASTATIN CA 20 MG TABLET (FP) PO SCH (21:27)
--- NOTE | 2017-06-14 02:21 | PN ---
Progress Note (short form) - Note Progress Note: patient states reduced swelling to left LLE since time of admission however remains swollen and warm to touch wears shoe to offset weight when OOB patient informed of MRSA results and need for longterm Abx Vital Signs Period Temp Pulse Resp BP Sys/Rios Pulse Ox Last 24 Hr 97.4 F-98 F 60-71 20-20 106-121/44-74 97-97 laying in bed / comfortable - JVD heart S1/S2 lungs clear bilat abd soft non tender ext left leg swollen to mid tib +2 pitting ++warmth to LLE / dressing to left foot CBC, BMP 06/12/17 06:15 06/12/17 06:15 Microbiology 06/10/17 20:30 Blood - Peripheral Venous Blood Culture - Preliminary NO GROWTH OBTAINED AFTER 72 HOURS, INCUBATION TO CONTINUE FOR 2 DAYS. 06/10/17 20:30 Blood - Peripheral Venous Blood Culture - Preliminary NO GROWTH OBTAINED AFTER 72 HOURS, INCUBATION TO CONTINUE FOR 2 DAYS. 06/11/17 14:00 Foot - Left Plantar Gram Stain - Final 06/11/17 14:00 Foot - Left Plantar Wound Culture - Preliminary Presumptive Mrsa (Pbp2a Pos) Group D Strep Or Entero Coccus Active Medications Allopurinol (Zyloprim -) 100 mg PO DAILY [facility] Last Admin: 06/13/17 09:31 Dose: 100 mg Atenolol (Tenormin -) 50 mg PO DAILY [facility] Last Admin: 06/13/17 09:31 Dose: 50 mg Atorvastatin Calcium (Lipitor -) 20 mg PO HS [facility] Last Admin: 06/13/17 21:27 Dose: 20 mg Fluconazole (Diflucan -) 200 mg PO DAILY [facility] Last Admin: 06/13/17 09:32 Dose: 200 mg Vancomycin HCl 1,250 mg/ (Dextrose) 250 mls @ 166.667 mls/hr IVPB DAILY [facility] PRN Reason: Protocol Last Admin: 06/13/17 10:59 Dose: 166.667 mls/hr Spironolactone (Aldactone -) 25 mg PO DAILY [facility] Last Admin: 06/13/17 09:31 Dose: 25 mg ID notified of c/s results zosyn d/c'd continue vanco isolation # non healing wound c/s MRSA need for isolation immunosuppressed AbX as per ID vascular and podiatry opinion appreciated # MDS scheduled for chemo next week - however currently on HOLD discussed with Eve ( [facility] ) not rescheduled at this time
[2017-06-14 08:51] LABS: ANION GAP 7 (8-16); CO2 28 mmol/L (21-32); GLUCOSE,RANDOM 99 mg/dL (74-106)
--- NOTE | 2017-06-14 09:39 | PN ---
Progress Note (short form) - Note Progress Note: ID Myelodysplasia wit LLE plantar ulcer and cellultisis of the LLE. Vancomycin day 4 Selected Entries 06/14/17 06:00 Temperature 97.7 F Pulse Rate 63 Respiratory 20 Rate Blood Pressure 116/51 Plantar ulcer wit erythema and swell warm LLE Microbiology 06/11/17 14:00 Foot - Left Plantar Gram Stain - Final 06/11/17 14:00 Foot - Left Plantar Wound Culture - Preliminary Mr S Aureus Enterococcus Faecalis 06/10/17 20:30 Blood - Peripheral Venous Blood Culture - Preliminary NO GROWTH OBTAINED AFTER 72 HOURS, INCUBATION TO CONTINUE FOR 2 DAYS. 06/10/17 20:30 Blood - Peripheral Venous Blood Culture - Preliminary NO GROWTH OBTAINED AFTER 72 HOURS, INCUBATION TO CONTINUE FOR 2 DAYS. Laboratory Tests 06/12/17 06/13/17 06/14/17 06:15 01:00 08:05 WBC 2.9 L BUN Vancomycin Pre-Dose 14.326 H 17.177 H* D 06/14/17 08:05 WBC BUN 18 Vancomycin Pre-Dose Assessment Going to need treatment for osteo PICC line Plan Lower the vanco fuentes Wallace MD Problem List - Problems (1) Cellulitis Code(s): L03.90 - CELLULITIS, UNSPECIFIED (2) MDS (myelodysplastic syndrome) Code(s): D46.9 - MYELODYSPLASTIC SYNDROME, UNSPECIFIED (3) Ulcer of left foot Code(s): L97.529 - NON-PRESSURE CHRONIC ULCER OTH PRT LEFT FOOT W UNSP SEVERITY Qualifiers: Non-pressure ulcer stage: unspecified non-pressure ulcer stage Qualified Code(s): L97.529 - Non-pressure chronic ulcer of other part of left foot with unspecified severity
[2017-06-14] MEDS: FLUCONAZOLE 100 MG TABLET (UD) PO SCH (09:54)
[2017-06-14] MEDS: ALLOPURINOL 100 MG TABLET (FP) PO SCH (09:54)
[2017-06-14] MEDS: SPIRONOLACTONE 25 MG TABLET (FP) PO SCH (09:54)
[2017-06-14] MEDS: ATENOLOL 50 MG TABLET (FP) PO SCH (09:54)
--- NOTE | 2017-06-14 10:05 | CONSULT ---
Consult - text type - Consultation Consultation Note: Patient seen n bed. VSS. erythema has reduced grade 3 ulceration sub 1, OM on MRI, +tender OM grade 3 wound HBO eval for chronic OM. 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 Betadine dresing change daily. Orthowedge shoe when ambulating with walker. Set up home IVABX and VNS for wound care. No surgical intervention at this time. Will follow till dc.
[2017-06-14] MEDS: VANCOMYCIN 1,000 MG in DEXTROSE 5%-WATER - 250 ML IVPB SCH (11:46)
--- NOTE | 2017-06-14 15:07 | PN ---
Progress Note (short form) - Note Progress Note: Daughter in earlier -updated on c/s, and POC ambulating in room wearing shoe to offset weight when OOB patient informed of need for nursing home Abx will have to discuss further after holidays Vital Signs Period Temp Pulse Resp BP Sys/Rios Pulse Ox Last 24 Hr 97.4 F-98 F 60-71 20-20 106-121/44-74 97-97 ambulating in room / comfortable - JVD heart S1/S2 lungs clear bilat abd soft non tender ext left leg swollen to mid tib +2 pitting improved but still warm ++ dressing to left foot CBC, BMP 06/12/17 06:15 06/14/17 08:05 Microbiology 06/11/17 14:00 Foot - Left Plantar Gram Stain - Final 06/11/17 14:00 Foot - Left Plantar Wound Culture - Final Mr S Aureus Enterococcus Faecalis 06/10/17 20:30 Blood - Peripheral Venous Blood Culture - Preliminary NO GROWTH OBTAINED AFTER 72 HOURS, INCUBATION TO CONTINUE FOR 2 DAYS. 06/10/17 20:30 Blood - Peripheral Venous Blood Culture - Preliminary NO GROWTH OBTAINED AFTER 72 HOURS, INCUBATION TO CONTINUE FOR 2 DAYS. Active Medications Allopurinol (Zyloprim -) 100 mg PO DAILY [facility] Last Admin: 06/13/17 09:31 Dose: 100 mg Atenolol (Tenormin -) 50 mg PO DAILY [facility] Last Admin: 06/13/17 09:31 Dose: 50 mg Atorvastatin Calcium (Lipitor -) 20 mg PO HS [facility] Last Admin: 06/13/17 21:27 Dose: 20 mg Fluconazole (Diflucan -) 200 mg PO DAILY [facility] Last Admin: 06/13/17 09:32 Dose: 200 mg Vancomycin HCl 1,250 mg/ (Dextrose) 250 mls @ 166.667 mls/hr IVPB DAILY [facility] PRN Reason: Protocol Last Admin: 06/13/17 10:59 Dose: 166.667 mls/hr Spironolactone (Aldactone -) 25 mg PO DAILY [facility] Last Admin: 06/13/17 09:31 Dose: 25 mg # non healing wound c/s MRSA isolation immunosuppressed AbX as per ID Vanco -- follow trough vascular and podiatry opinion appreciated # MDS Chemo currently on HOLD discussed with Eve ( [facility] ) not rescheduled at this time H/H remains stable
[2017-06-14] MEDS: ATORVASTATIN CA 20 MG TABLET (FP) PO SCH (21:28)
[2017-06-15] MEDS: ATENOLOL 50 MG TABLET (FP) PO SCH (11:00)
[2017-06-15] MEDS: SPIRONOLACTONE 25 MG TABLET (FP) PO SCH (11:00)
[2017-06-15] MEDS: ALLOPURINOL 100 MG TABLET (FP) PO SCH (11:00)
[2017-06-15] MEDS: FLUCONAZOLE 100 MG TABLET (UD) PO SCH (11:00)
[2017-06-15] MEDS: VANCOMYCIN 1,000 MG in DEXTROSE 5%-WATER - 250 ML IVPB SCH (11:00)
[2017-06-15] MEDS: ATORVASTATIN CA 20 MG TABLET (FP) PO SCH (21:41)
--- NOTE | 2017-06-15 23:45 | PN ---
Progress Note (short form) - Note Progress Note: Laying in bed - comfortable reports less swelling no fever or chills discussed arrangements for detention ABX prefers home infusion -- will need to discuss with d/c planning Vital Signs Period Temp Pulse Resp BP Sys/Rios Pulse Ox Last 24 Hr 97.4 F-98 F 60-71 20-20 106-121/44-74 97-97 / comfortable - JVD heart S1/S2 lungs clear bilat abd soft non tender ext left leg swollen to mid tib +2 pitting improved but still warm ++ dressing to left foot CBC, BMP 06/12/17 06:15 06/14/17 08:05 Microbiology 06/10/17 20:30 Blood - Peripheral Venous Blood Culture - Final NO GROWTH AFTER 5 DAYS INCUBATION 06/10/17 20:30 Blood - Peripheral Venous Blood Culture - Final NO GROWTH AFTER 5 DAYS INCUBATION 06/11/17 14:00 Foot - Left Plantar Gram Stain - Final 06/11/17 14:00 Foot - Left Plantar Wound Culture - Final Mr S Aureus Enterococcus Faecalis Active Medications Allopurinol (Zyloprim -) 100 mg PO DAILY [facility] Last Admin: 06/15/17 11:00 Dose: 100 mg Atenolol (Tenormin -) 50 mg PO DAILY [facility] Last Admin: 06/15/17 11:00 Dose: 50 mg Atorvastatin Calcium (Lipitor -) 20 mg PO HS [facility] Last Admin: 06/15/17 21:41 Dose: 20 mg Fluconazole (Diflucan -) 200 mg PO DAILY [facility] Last Admin: 06/15/17 11:00 Dose: 200 mg Vancomycin HCl 1,000 mg/ (Dextrose) 250 mls @ 250 mls/hr IVPB DAILY@1200 [facility] PRN Reason: Protocol Last Admin: 06/15/17 11:00 Dose: 250 mls/hr Spironolactone (Aldactone -) 25 mg PO DAILY [facility] Last Admin: 06/15/17 11:00 Dose: 25 mg # non healing wound c/s MRSA isolation immunosuppressed AbX as per ID Vanco -- follow trough vascular and podiatry opinion appreciated # MDS Chemo currently on HOLD discussed with Eve ( [facility] ) not rescheduled at this time H/H remains stable # d/c planning patient would prefer for home IV therapy to discuss with SW in am VNS referal
[2017-06-16 07:39] LABS: MCH 32.6 pg (25.7-33.7); MCHC 33.3 g/dl (32.0-35.9); MEAN CELL VOLUME 98.1 fl (80-96); MEAN PLT VOLUME 7.5 fl (7.5-11.1); PLATELET COUNT 251 K/MM3 (134-434); RDW 18.8 % (11.9-15.9); WHITE BLOOD COUNT 5.2 K/mm3 (4.0-10.0)
[2017-06-16 08:04] LABS: ANION GAP 11 (8-16); CALCIUM 9.2 mg/dL (8.5-10.1); CO2 25 mmol/L (21-32); CREATININE 0.9 mg/dL (0.7-1.3); GLUCOSE,RANDOM 87 mg/dL (74-106)
[2017-06-16] MEDS: ATENOLOL 50 MG TABLET (FP) PO SCH (10:13)
[2017-06-16] MEDS: SPIRONOLACTONE 25 MG TABLET (FP) PO SCH (10:13)
[2017-06-16] MEDS: ALLOPURINOL 100 MG TABLET (FP) PO SCH (10:13)
[2017-06-16] MEDS: FLUCONAZOLE 100 MG TABLET (UD) PO SCH (10:13)
[2017-06-16] MEDS ORDERED: PT OWN MED DRAWER 7, Y5N ONE (11:15)
[2017-06-16] MEDS: VANCOMYCIN 1,000 MG in DEXTROSE 5%-WATER - 250 ML IVPB SCH (11:31)
--- NOTE | 2017-06-16 12:55 | PN ---
Progress Note (short form) - Note Progress Note: Laying in bed - comfortable reports less swelling no fever or chills discussed arrangements for penitentiary ABX unable to arrange home infusion -- will need SNF daughter called - case discussed prefer [facility] for STR Vital Signs Period Temp Pulse Resp BP Sys/Rios Pulse Ox Last 24 Hr 97.4 F-98 F 60-71 20-20 106-121/44-74 97-97 / comfortable - JVD heart S1/S2 lungs clear bilat abd soft non tender ext left leg swollen to mid tib +2 pitting improved but still warm ++ dressing to left foot CBC, BMP 06/16/17 06:30 06/16/17 06:30 Microbiology 06/10/17 20:30 Blood - Peripheral Venous Blood Culture - Final NO GROWTH AFTER 5 DAYS INCUBATION 06/10/17 20:30 Blood - Peripheral Venous Blood Culture - Final NO GROWTH AFTER 5 DAYS INCUBATION 06/11/17 14:00 Foot - Left Plantar Gram Stain - Final 06/11/17 14:00 Foot - Left Plantar Wound Culture - Final Mr S Aureus Enterococcus Faecalis Active Medications Allopurinol (Zyloprim -) 100 mg PO DAILY [facility] Last Admin: 06/16/17 10:13 Dose: 100 mg Atenolol (Tenormin -) 50 mg PO DAILY [facility] Last Admin: 06/16/17 10:13 Dose: 50 mg Atorvastatin Calcium (Lipitor -) 20 mg PO HS [facility] Last Admin: 06/15/17 21:41 Dose: 20 mg Fluconazole (Diflucan -) 200 mg PO DAILY [facility] Last Admin: 06/16/17 10:13 Dose: 200 mg Vancomycin HCl 1,000 mg/ (Dextrose) 250 mls @ 250 mls/hr IVPB DAILY@1200 [facility] PRN Reason: Protocol Last Admin: 06/16/17 11:31 Dose: 250 mls/hr Spironolactone (Aldactone -) 25 mg PO DAILY [facility] Last Admin: 06/16/17 10:13 Dose: 25 mg # non healing wound / OM c/s MRSA MRI c/w OM isolation immunosuppressed 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
--- NOTE | 2017-06-16 13:40 | CONSULT ---
Consult - text type - Consultation Consultation Note: Patient seen in bed. VSS. Tmax 97.2 erythema has reduced grade 2 ulceration sub 1, OM on MRI, -tender today, wbc=5.2 OM grade 2 wound HBO eval for chronic OM. IVABX usp as per ID. Betadine dresing change done and daily changes. Orthowedge shoe when ambulating with walker. Set up home IVABX and VNS for wound care. No surgical intervention at this time. Will follow till dc.
--- NOTE | 2017-06-16 15:13 | PN ---
Teaching Attending Note Name of Resident: Monica Choudhury ATTENDING PHYSICIAN STATEMENT I saw and evaluated the patient. I reviewed the resident's note and discussed the case with the resident. I agree with the resident's findings and plan as documented. SUBJECTIVE: aware he has osteo and needs iv therapy OBJECTIVE: Vital Signs Period Temp Pulse Resp BP Sys/Rios Pulse Ox Last 24 Hr 97.2 F-98.3 F 58-93 16-20 108-126/44-76 97-98 cor-rrr lungs clear abd soft,nt ext dressing just done by financial services officer CBC, BMP 06/16/17 06:30 06/16/17 06:30 Microbiology 06/10/17 20:30 Blood - Peripheral Venous Blood Culture - Final NO GROWTH AFTER 5 DAYS INCUBATION 06/10/17 20:30 Blood - Peripheral Venous Blood Culture - Final NO GROWTH AFTER 5 DAYS INCUBATION 06/11/17 14:00 Foot - Left Plantar Gram Stain - Final 06/11/17 14:00 Foot - Left Plantar Wound Culture - Final Mr S Aureus Enterococcus Faecalis ASSESSMENT AND PLAN: osteo- mrsa and enterococcus plan half-way vancomycin 6 weeks via picc line d/w patient he asked me to call daughter I spoke with his daughter she asked me to speak to SW- I called SW who will start discharge planning MDS
--- NOTE | 2017-06-16 15:25 | PN ---
Physical Exam: SUBJECTIVE: Patient seen and examined at bedside. States that he was seen by podiatry earlier this AM. Denied any physical complaints. Overnight, pt afebrile. Otherwise no acute events- OBJECTIVE: Vital Signs Period Temp Pulse Resp BP Sys/Rios Pulse Ox Last 24 Hr 97.2 F-98.3 F 58-93 16-20 108-126/44-76 97-98 GENERAL: The patient is awake, alert, and fully oriented, in no acute distress. HEAD: Normal with no signs of trauma. LUNGS: Breath sounds equal, clear to auscultation bilaterally, no wheezes, no crackles, no accessory muscle use. HEART: Regular rate and rhythm, S1, S2 without murmur, rub or gallop. ABDOMEN: Soft, nontender, nondistended EXTREMITIES: wrapped L foot, dressing appears clean. With boot NEUROLOGICAL: Cranial nerves II through XII grossly intact Laboratory Results - last 24 hr 06/16/17 06/16/17 06/16/17 06:00 06:30 06:30 WBC 5.2 D RBC 2.66 L Hgb 8.7 L Hct 26.1 L MCV 98.1 H MCH 32.6 MCHC 33.3 RDW 18.8 H Plt Count 251 D MPV 7.5 Sodium 141 Potassium 4.4 Chloride 105 Carbon Dioxide 25 Anion Gap 11 BUN 14 D Creatinine 0.9 Random Glucose 87 Calcium 9.2 Vancomycin Pre-Dose 11.013 H D Active Medications Generic Name Dose Route Start Last Admin Trade Name Freq PRN Reason Stop Dose Admin Allopurinol 100 mg 06/11/17 10:00 06/16/17 10:13 Zyloprim - PO 100 mg DAILY MEETA Administration Atenolol 50 mg 06/11/17 10:00 06/16/17 10:13 Tenormin - PO 50 mg DAILY MEETA Administration Atorvastatin Calcium 20 mg 06/11/17 22:00 06/15/17 21:41 Lipitor - PO 20 mg HS MEETA Administration Fluconazole 200 mg 06/11/17 10:00 06/16/17 10:13 Diflucan - PO 200 mg DAILY MEETA Administration Vancomycin HCl 1,000 mg/ 250 mls @ 250 mls/hr 06/14/17 12:00 06/16/17 11:31 Dextrose IVPB 250 mls/hr DAILY@1200 MEETA Administration Protocol Spironolactone 25 mg 06/11/17 10:00 06/16/17 10:13 Aldactone - PO 25 mg DAILY MEETA Administration Microbiology 06/11/17 14:00 Foot - Left Plantar Gram Stain - Final 06/11/17 14:00 Foot - Left Plantar Wound Culture - Final Mr S Aureus Enterococcus Faecalis 06/10/17 20:30 Blood - Peripheral Venous Blood Culture - Final NO GROWTH AFTER 5 DAYS INCUBATION 06/10/17 20:30 Blood - Peripheral Venous Blood Culture - Final NO GROWTH AFTER 5 DAYS INCUBATION Radio 06/12/17 Lower Extremity MRI: increased BM abnormality in L medial sesamoid consistent with osteo.New punctate focus - BM signal abnormality and enhancement in L medial sesamoid ASSESSMENT/PLAN: #Osteomyelitis -L foot wound cx: MRSA, enterococcus faecalis -has been afebrile, without white count -Vancomycin 1g IVPB -Today is Day 6 -Will need vanco 1g IVPB qd for a total of 6 weeks -Needs PICC line -Continue discussion with social work concerning placement Thank you Monica Choudhury MD PGY-1 ID Team Visit type - Emergency Visit Emergency Visit: No - New Patient This patient is new to me today: No - Critical Care Critical Care patient: No
[2017-06-16] MEDS ORDERED: PICC LINE 8 ML FLUSH PROTOCOL IVPUSH PRN (16:07)
[2017-06-16] MEDS: ATORVASTATIN CA 20 MG TABLET (FP) PO SCH (21:54)
[2017-06-17] MEDS: FLUCONAZOLE 100 MG TABLET (UD) PO SCH (09:32)
[2017-06-17] MEDS: SPIRONOLACTONE 25 MG TABLET (FP) PO SCH (09:32)
[2017-06-17] MEDS: ALLOPURINOL 100 MG TABLET (FP) PO SCH (09:32)
[2017-06-17] MEDS: ATENOLOL 50 MG TABLET (FP) PO SCH (09:32)
--- NOTE | 2017-06-17 12:59 | PN ---
Progress Note (short form) - Note Progress Note: no fever or chills unable to arrange home infusion -- will need SNF daughter called - case discussed prefer [facility] for STR Vital Signs Period Temp Pulse Resp BP Sys/Rios Pulse Ox Last 24 Hr 97.4 F-98 F 60-71 20-20 106-121/44-74 97-97 / comfortable - JVD heart S1/S2 lungs clear bilat abd soft non tender ext left leg swollen to mid tib +2 pitting improved but still warm ++ dressing to left foot CBC, BMP 06/16/17 06:30 06/16/17 06:30 Microbiology 06/10/17 20:30 Blood - Peripheral Venous Blood Culture - Final NO GROWTH AFTER 5 DAYS INCUBATION 06/10/17 20:30 Blood - Peripheral Venous Blood Culture - Final NO GROWTH AFTER 5 DAYS INCUBATION 06/11/17 14:00 Foot - Left Plantar Gram Stain - Final 06/11/17 14:00 Foot - Left Plantar Wound Culture - Final Mr S Aureus Enterococcus Faecalis Active Medications Allopurinol (Zyloprim -) 100 mg PO DAILY [facility] Last Admin: 06/16/17 10:13 Dose: 100 mg Atenolol (Tenormin -) 50 mg PO DAILY [facility] Last Admin: 06/16/17 10:13 Dose: 50 mg Atorvastatin Calcium (Lipitor -) 20 mg PO HS [facility] Last Admin: 06/15/17 21:41 Dose: 20 mg Fluconazole (Diflucan -) 200 mg PO DAILY [facility] Last Admin: 06/16/17 10:13 Dose: 200 mg Vancomycin HCl 1,000 mg/ (Dextrose) 250 mls @ 250 mls/hr IVPB DAILY@1200 [facility] PRN Reason: Protocol Last Admin: 06/16/17 11:31 Dose: 250 mls/hr Spironolactone (Aldactone -) 25 mg PO DAILY [facility] Last Admin: 06/16/17 10:13 Dose: 25 mg # non healing wound / OM c/s MRSA MRI c/w OM PICC line isolation immunosuppressed AbX as per ID --- 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
[2017-06-17] MEDS: VANCOMYCIN 1,000 MG in DEXTROSE 5%-WATER - 250 ML IVPB SCH (13:00)
[2017-06-17 15:11] VITALS: BP 126/65; PULSE 66; TEMP 97.7
== END 2017-06-17 16:42 | DRG 540 ==
LOC: JER 20:11 → JERBED 23:28 → J7W 06-11 11:51
PROVIDERS: ADMIT Family Medicine; ATTEND Family Medicine
PROC: 02HV33Z Insertion of Infusion Device into Superior Vena Cava, Percutaneous Approach (ICD-10-PCS; principal; 2017-06-12)
PROC: B518ZZA Fluoroscopy of Superior Vena Cava, Guidance (ICD-10-PCS; 2017-06-12)
DX: M86.9 Osteomyelitis, unspecified (principal); L03.116 Cellulitis of left lower limb; D46.9 Myelodysplastic syndrome, unspecified; E78.5 Hyperlipidemia, unspecified; I10 Essential (primary) hypertension; A49.02 Methicillin resistant Staphylococcus aureus infection, unspecified site; L97.529 Non-pressure chronic ulcer of other part of left foot with unspecified severity
CPT/HCPCS: 36415; 36569; 71010-TC; 73610-TC-LT; 73630-TC-LT; 73723-LT; 77001-TC; 80048; 80053; 83605; 85025; 85027; 85610; 85651; 87040; 87070; 87186; 87205; 93005; 93010; 97116-GP; 97161-GP; 99285-25; C1751; G0480

== ENCOUNTER 2017-10-23 19:14 | Inpatient (IN) | payer OTHER ==
[2017-10-23 19:22] VITALS: BMI 24.3
[2017-10-23] MEDS ORDERED: ACETAMINOPHEN 325 MG TABLET (FP) PO ONE (20:18)
[2017-10-23] MEDS ORDERED: ACETAMINOPHEN 325 MG TABLET (FP) ONE (20:31)
[2017-10-23] MEDS ORDERED: morphine CARPU-JECT 2 MG/1 ML DISP.SYRIN IVPUSH ONE (20:44)
[2017-10-23 21:31] LABS: HEMATOCRIT 14.5 % (35.4-49); MCH 33.7 pg (25.7-33.7); MCHC 35.4 g/dl (32.0-35.9); MEAN CELL VOLUME 95.4 fl (80-96); RBC 1.52 M/mm3 (4.00-5.60); RDW 15.5 % (11.9-15.9)
[2017-10-23 21:40] LABS: HEMOGLOBIN 5.1 GM/dL (11.7-16.9); WHITE BLOOD COUNT 1.9 K/mm3 (4.0-10.0)
--- NOTE | 2017-10-23 21:59 | PDOC ---
Attending Attestation - Resident Resident Name: Buzz Muse - ED Attending Attestation I have performed the following: I have examined & evaluated the patient, The case was reviewed & discussed with the resident, I agree w/resident's findings & plan, Exceptions are as noted - Medical Decision Making 10/23/17 21:56 86 yo M with h/o cad htn here wtih chest pain. differential : acs, chest wall pain pna, plan cxr labs aspirin. pt will likley admit for r/o acs.
[2017-10-23] MEDS ORDERED: VANCOMYCIN 1,000 MG in DEXTROSE 5%-WATER - 250 ML IVPB ONE (22:00)
[2017-10-23 22:09] LABS: MEAN PLT VOLUME 8.5 fl (7.5-11.1); PLATELET COUNT 19 K/MM3 (134-434)
--- NOTE | 2017-10-23 22:09 | PDOC ---
History of Present Illness - General History Source: Patient, Family Exam Limitations: No Limitations <Candis Hurley - Last Filed: 10/23/17 22:13> - General History Source: Patient, Family Exam Limitations: No Limitations - History of Present Illness Initial Comments: 10/23/17 22:24 The patient is an 86 year old male with past medical history of hypertension, hyperlipidemia, myelodysplastic syndrome, and gout who presents to the ED with complaints of pain to his left foot. The patient has had bilateral lower extremity wounds since December. Since yesterday however the wound on his left lower extremity has opened up and began to bleed with shooting pains. He also reports developing a fever last night (Tmax 100.8) with associated chills. He denies any numbness or tingling. Denies any recent illness, chills, nausea, vomiting, diarrhea, cough, SOB, or urinary symptoms. PCP: Dr. Woodward <Hailee Lovelace - Last Filed: 10/23/17 22:56> <Chai Davila - Last Filed: 10/24/17 06:16> - General Chief Complaint: Revisit,Wound Recheck Stated Complaint: WOUND Time Seen by Provider: 10/23/17 19:52 Past History - Past Medical History Cancer: Yes (MDS "Chemo") COPD: No HTN: Yes Hypercholesterolemia: Yes - Surgical History Appendectomy: Yes - Immunization History Immunization Up to Date: Yes - Suicide/Smoking/Psychosocial Hx Smoking History: Former smoker Have you smoked in the past 12 months: No If you are a former smoker, when did you quit?: 40 years ago Information on smoking cessation initiated: No Hx Alcohol Use: No Drug/Substance Use Hx: No Substance Use Type: None <Candis Hurley - Last Filed: 10/23/17 22:13> <Hailee Lovelace - Last Filed: 10/23/17 22:56> <Chai Davila - Last Filed: 10/24/17 06:16> - Past Medical History Allergies/Adverse Reactions: Allergies Allergy/AdvReac Type Severity Reaction Status Date / Time No Known Allergies Allergy Verified 08/11/17 15:06 Home Medications: Ambulatory Orders Allopurinol [Zyloprim -] 100 mg PO DAILY 06/10/17 Atenolol [Tenormin] 50 mg PO DAILY 06/10/17 Spironolactone [Aldactone] 25 mg PO DAILY 06/10/17 Vits A,C,E/Lutein/Minerals [I-Pauline Tablet] 1 each PO DAILY 06/10/17 Atorvastatin Calcium 20 mg PO HS 10/23/17 Ferrous Sulfate 325 mg PO BID 10/23/17 Review of Systems - Review of Systems Able to Perform ROS?: Yes Comments:: 10/23/17 22:24 GENERAL/CONSTITUTIONAL: (+) Fever, chills. No weakness. HEAD, EYES, EARS, NOSE AND THROAT: No change in vision. No ear pain or discharge. No sore throat. CARDIOVASCULAR: No chest pain or shortness of breath. RESPIRATORY: No cough, wheezing, or hemoptysis. GASTROINTESTINAL: No nausea, vomiting, diarrhea or constipation. GENITOURINARY: No dysuria, frequency, or change in urination. MUSCULOSKELETAL: No joint or muscle swelling or pain. No neck or back pain. SKIN: (+) wounds on bilateral lower extremities. No rash NEUROLOGIC: No headache, vertigo, loss of consciousness, or change in strength/ sensation. ENDOCRINE: No increased thirst. No abnormal weight change. HEMATOLOGIC/LYMPHATIC: No anemia, easy bleeding, or history of blood clots. ALLERGIC/IMMUNOLOGIC: No hives or skin allergy. All Other Systems: Reviewed and Negative <Hailee Lovelace - Last Filed: 10/23/17 22:56> *Physical Exam - Vital Signs Last Vital Signs Temp Pulse Resp BP Pulse Ox 97.8 F 68 18 126/52 98 10/23/17 19:17 10/23/17 19:17 10/23/17 19:17 10/23/17 19:17 10/23/17 19:17 <Candis Hulrey - Last Filed: 10/23/17 22:13> - Vital Signs Last Vital Signs Temp Pulse Resp BP Pulse Ox 97.8 F 68 18 126/52 98 10/23/17 19:17 10/23/17 19:17 10/23/17 19:17 10/23/17 19:17 10/23/17 19:17 - Physical Exam Comments: 10/23/17 22:25 GENERAL: Awake, alert, and fully oriented, in no acute distress HEAD: No signs of trauma EYES: PERRLA, EOMI, sclera anicteric, conjunctiva clear ENT: Auricles normal inspection, hearing grossly normal, nares patent, oropharynx clear without exudates. Moist mucosa NECK: Normal ROM, supple, no lymphadenopathy, JVD, or masses LUNGS: Breath sounds equal, clear to auscultation bilaterally. No wheezes, and no crackles HEART: Regular rate and rhythm, normal S1 and S2, no murmurs, rubs or gallops ABDOMEN: Soft, nontender, normoactive bowel sounds. No guarding, no rebound. No masses EXTREMITIES: (+) Bilateral pitting 3+ pitting edema. Left foot is warm, erythematous, and swollen. Plantar surface wound approximately 1.5 x 1 cm on left foot with active bleeding but no exudate. 2+ DP pulses. No clubbing or cyanosis. NEUROLOGICAL: Cranial nerves II through XII grossly intact. Normal speech SKIN: Warm, Dry, normal turgor, no rashes or lesions noted. <Hailee Lovelace - Last Filed: 10/23/17 22:56> - Vital Signs Last Vital Signs Temp Pulse Resp BP Pulse Ox 97.4 F L 62 18 120/45 96 10/24/17 02:54 10/24/17 02:54 10/24/17 02:54 10/24/17 02:54 10/24/17 02:39 <Chai Davila - Last Filed: 10/24/17 06:16> Heart Score/ECG Review - ECG Intrepretation Comment:: 10/24/17 06:16 sinus bradycardia Otherwise normal ECG Vent. rate 53 bpm IL interval 196 ms QRS duaration 70 ms <Chai Davila - Last Filed: 10/24/17 06:16> ED Treatment Course - LABORATORY CBC & Chemistry Diagram: 10/23/17 21:22 10/23/17 21:22 - ADDITIONAL ORDERS Additional order review: Laboratory Results 10/23/17 10/23/17 21:22 21:22 Sodium Cancelled Potassium Cancelled Chloride Cancelled Carbon Dioxide Cancelled Anion Gap Cancelled BUN Cancelled Creatinine Cancelled Creat Clearance w eGFR Cancelled Random Glucose Cancelled Lactic Acid 1.6 Calcium Cancelled Total Bilirubin Cancelled AST Cancelled ALT Cancelled Alkaline Phosphatase Cancelled Total Protein Cancelled Albumin Cancelled 10/23/17 21:22 RBC 1.52 L D MCV 95.4 MCHC 35.4 RDW 15.5 Neutrophils % No Result Required. Lymphocytes % No Result Required. - RADIOLOGY Radiology Studies Ordered: Category Date Time Status CHEST PA & LAT [RAD] Stat Radiology 10/23/17 20:45 Ordered FOOT-LEFT [RAD] Stat Radiology 10/23/17 20:45 Ordered - Medications Given in the ED: ED Medications Discontinued Medications Generic Name Dose Route Start Last Admin Trade Name Dimasq PRN Reason Stop Dose Admin Acetaminophen 650 mg 10/23/17 20:18 10/23/17 21:09 Tylenol - PO 10/23/17 20:19 650 mg ONCE ONE Administration <MeiCandis - Last Filed: 10/23/17 22:13> - LABORATORY CBC & Chemistry Diagram: 10/23/17 21:22 10/23/17 21:22 - ADDITIONAL ORDERS Additional order review: Laboratory Results 10/23/17 10/23/17 21:22 21:22 Sodium Cancelled Potassium Cancelled Chloride Cancelled Carbon Dioxide Cancelled Anion Gap Cancelled BUN Cancelled Creatinine Cancelled Creat Clearance w eGFR Cancelled Random Glucose Cancelled Lactic Acid 1.6 Calcium Cancelled Total Bilirubin Cancelled AST Cancelled ALT Cancelled Alkaline Phosphatase Cancelled Total Protein Cancelled Albumin Cancelled 10/23/17 21:22 RBC 1.52 L D MCV 95.4 MCHC 35.4 RDW 15.5 MPV 8.5 Neutrophils % No Result Required. Lymphocytes % No Result Required. - Medications Given in the ED: ED Medications Discontinued Medications Generic Name Dose Route Start Last Admin Trade Name Manny PRN Reason Stop Dose Admin Acetaminophen 650 mg 10/23/17 20:18 10/23/17 21:09 Tylenol - PO 10/23/17 20:19 650 mg ONCE ONE Administration <Hailee Lovelace - Last Filed: 10/23/17 22:56> - LABORATORY CBC & Chemistry Diagram: 10/23/17 21:22 10/23/17 22:16 - ADDITIONAL ORDERS Additional order review: Laboratory Results 10/23/17 10/23/17 21:22 21:22 Sodium Cancelled Potassium Cancelled Chloride Cancelled Carbon Dioxide Cancelled Anion Gap Cancelled BUN Cancelled Creatinine Cancelled Creat Clearance w eGFR Cancelled Random Glucose Cancelled Lactic Acid 1.6 Calcium Cancelled Total Bilirubin Cancelled AST Cancelled ALT Cancelled Alkaline Phosphatase Cancelled Total Protein Cancelled Albumin Cancelled 10/23/17 21:22 RBC 1.52 L D MCV 95.4 MCHC 35.4 RDW 15.5 MPV 8.5 Neutrophils % No Result Required. Lymphocytes % No Result Required. - Medications Given in the ED: ED Medications Discontinued Medications Generic Name Dose Route Start Last Admin Trade Name Manny PRN Reason Stop Dose Admin Acetaminophen 650 mg 10/23/17 20:18 10/23/17 21:09 Tylenol - PO 10/23/17 20:19 650 mg ONCE ONE Administration Vancomycin HCl 1,000 mg/ 250 mls @ 166.667 mls/hr 10/23/17 22:00 10/23/17 22: 27 Dextrose IVPB 10/23/17 23:29 166.667 mls/hr ONCE ONE Administration Protocol Morphine Sulfate 2 mg 10/23/17 20:44 10/23/17 22:27 Morphine Injection - IVPUSH 10/23/17 20:45 Not Given ONCE ONE <Chai Davila - Last Filed: 10/24/17 06:16> Medical Decision Making - Medical Decision Making 10/23/17 22:04 86 yo M with myledysplastic syndrome, HTN HLD., gout and chronic left foot ulcer for 6 mo, previously treated for mrsa osteo as outpt in june with vanco , here with c/o increased pain left foot, pallor, fatgiue and low grade temp 100.5 , history per daughter. differential: anemia, renal failure, pneumonia or other cause of fever such as uti, osteomyletiis, plan abx, xray r/o osteo, labs cxr ekg. will require admission for pain control and abx. pt with anemia hgb 5, will require transfusion. pt agreeable . d/w dr. higuera will admit to med surg. vancomycin given for concerns for osteo. xray foot obtained. 10/23/17 22:13 <Candis Hurley - Last Filed: 10/23/17 22:13> - Medical Decision Making 10/23/17 22:57 21:[address] Woodward, case was discussed and patient will be admitted. <Hailee Lovelace - Last Filed: 10/23/17 22:56> *DC/Admit/Observation/Transfer - Discharge Dispostion Admit: Yes <Candis Hurley - Last Filed: 10/23/17 22:13> - Attestations Scribe Attestion: 10/23/17 22:28 Documentation prepared by Hailee Lovelace, acting as medical claims examiner for Candis Hurley MD. <Hailee Lovelace - Last Filed: 10/23/17 22:56> <Chai Davila - Last Filed: 10/24/17 06:16> Diagnosis at time of Disposition: Pancytopenia, Anemia, Foot ulcer
[2017-10-23 22:10] LABS: PLATELET ESTIMATE MARKEDLY DECREASED.
[2017-10-23 22:19] LABS: ANISOCYTOSIS 1+; MACROCYTOSIS 1+
[2017-10-23] MEDS ORDERED: VANCOMYCIN 1 GRAM (PRE-DOCKED) 1,000 MG/250 ML BAG IVPB ONE (22:19)
[2017-10-23 22:59] LABS: ALBUMIN 3.2 g/dl (3.4-5.0); ALK PHOS 105 U/L (45-117); ANION GAP 8 (8-16); BILIRUBIN,TOTAL 0.4 mg/dL (0.2-1.0); BLOOD UREA NITROGEN 34 mg/dL (7-18); CHLORIDE 107 mmol/L (98-107); CO2 22 mmol/L (21-32); CREATININE 1.6 mg/dL (0.7-1.3); GLUCOSE,RANDOM 117 mg/dL (74-106); POTASSIUM 3.8 mmol/L (3.5-5.1); SGOT/AST 10 U/L (15-37); SGPT/ALT 11 U/L (12-78); SODIUM 137 mmol/L (136-145); TOT PROT 7.2 g/dl (6.4-8.2)
[2017-10-24] MEDS: SPIRONOLACTONE 25 MG TABLET (FP) PO SCH (11:23)
[2017-10-24 11:27] LABS: HEMATOCRIT 21.8 % (35.4-49); HEMOGLOBIN 7.6 GM/dL (11.7-16.9); MCH 33.2 pg (25.7-33.7); MEAN PLT VOLUME 8.4 fl (7.5-11.1); RBC 2.29 M/mm3 (4.00-5.60); RDW 15.2 % (11.9-15.9)
[2017-10-24 11:32] LABS: PLATELET COUNT 15 K/MM3 (134-434); WHITE BLOOD COUNT 1.7 K/mm3 (4.0-10.0)
--- NOTE | 2017-10-24 11:44 | CONSULT ---
Consult Consult Specialty:: Hematology Reason for Consultation:: Pancytopenia - History of Present Illness Chief Complaint: Pancytopenia, sepsis History of Present Illness: Patient with known history of MDS, dioagnosed circa September 2016, previously on Vidaza, held circa February 2017 due to non-healing LE ulcer, presents with exacerbation in anemia (symptomatic), fever, increased lower extremity pain. Appears to be acute - mild anemia July 2017, with normal ANC and platelets - now with Hb <6, platelets 19k, and neutropenia. As per daughter no acute events during last 3 months. Ongoing would care. Course of vancomycin completed several weeks ago. Receiving care for MDS at . - History Source History Provided By: Family Member Limitations to Obtaining History: Poor Historian - Past Medical History Cardio/Vascular: Yes: HTN Gastrointestinal: Yes: Constipation - Alcohol/Substance Use Hx Alcohol Use: No - Smoking History Smoking history: Former smoker Have you smoked in the past 12 months: No If you are a former smoker, when did you quit?: 40 years ago - Social History History of Recent Travel: No Home Medications - Allergies Allergies/Adverse Reactions: Allergies Allergy/AdvReac Type Severity Reaction Status Date / Time No Known Allergies Allergy Verified 08/11/17 15:06 - Home Medications Home Medications: Ambulatory Orders Allopurinol [Zyloprim -] 100 mg PO DAILY 06/10/17 Atenolol [Tenormin] 50 mg PO DAILY 06/10/17 Spironolactone [Aldactone] 25 mg PO DAILY 06/10/17 Vits A,C,E/Lutein/Minerals [I-Pauline Tablet] 1 each PO DAILY 06/10/17 Atorvastatin Calcium 20 mg PO HS 10/23/17 Ferrous Sulfate 325 mg PO BID 10/23/17 Review of Systems - Review of Systems Constitutional: reports: Fever, Lethargy, Malaise, Weakness Eyes: reports: No Symptoms HENT: reports: No Symptoms Neck: reports: No Symptoms Cardiovascular: reports: Shortness of Breath. denies: Chest Pain Respiratory: reports: Exercise Intolerance, SOB on Exertion Gastrointestinal: denies: Abdominal Pain, Constipation, Diarrhea, Melena Genitourinary: reports: No Symptoms Integumentary: reports: Wound Neurological: reports: Confusion Endocrine: reports: No Symptoms Hematology/Lymphatic: denies: Easily Bruised, Excessive Bleeding Physical Exam Vital Signs: Vital Signs Temperature 98.5 F 10/24/17 10:28 Pulse Rate 83 10/24/17 10:28 Respiratory Rate 20 10/24/17 10:28 Blood Pressure 131/57 10/24/17 10:28 O2 Sat by Pulse Oximetry (%) 96 10/24/17 09:00 Constitutional: Yes: No Distress, Calm, Cachectic, Mild Distress Eyes: Yes: Conjunctiva Clear. No: Sclera Icterus HENT: Yes: Normocephalic Neck: Yes: Supple Cardiovascular: Yes: Regular Rate and Rhythm, S1, S2. No: Gallop, Murmur Respiratory: Yes: Regular, Tachypnea Gastrointestinal: Yes: Normal Bowel Sounds, Soft. No: Abdomen, Obese, Ascites, Hepatomegaly, Splenomegaly Extremities: Yes: Other (Bilateral changes chronic vascular changes ( hyperpigmentation et al), Feet dressed - wounds not inspected.) Neurological: Yes: Alert, Cran Nerves II-XII Intact, Weakness. No: Oriented Labs: CBC, BMP 10/24/17 11:05 10/23/17 22:16 Assessment/Plan Known MDS, previously apparently only with anemia, now with apparently acute exacerbation in anemia, with pancytopenia. Acute deterioration likely attributable to soft-tissue infection, but cannot exclude possibility of progression of disease. Recommend broad spectrum antibiotic coverage, as for febrile neutropenia, and blood cultures. Neutropenic precautions. Transfuse RBCs for symptomatic anemia. Prophylactic platelet transfusion to keep platelet count above 10K. Close observation. Will review peripheral smear. Will follow.
--- NOTE | 2017-10-24 14:12 | PN ---
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
--- NOTE | 2017-10-24 14:34 | EKG ---
Test Reason : Blood Pressure : / mmHG Vent. Rate : 053 BPM Atrial Rate : 053 BPM P-R Int : 196 ms QRS Dur : 070 ms QT Int : 438 ms P-R-T Axes : 049 017 043 degrees QTc Int : 410 ms POOR DATA QUALITY, INTERPRETATION MAY BE ADVERSELY AFFECTED SINUS BRADYCARDIA OTHERWISE NORMAL ECG WHEN COMPARED WITH ECG OF 10-JUN-2017 22:50, NO SIGNIFICANT CHANGE WAS FOUND Confirmed by MD Ru, Buzz ([id number]) on 10/24/2017 2:33:49 PM Referred By: Confirmed By:Buzz Vences MD
--- NOTE | 2017-10-24 14:34 | CONS ---
DATE OF CONSULTATION: DATE OF DICTATION: 10/24/2017 INFECTIOUS DISEASE CONSULTATION HISTORY OF PRESENT ILLNESS: This 86-year-old male is evaluated for cellulitis of the lower extremities bilaterally, infected left foot wound and febrile neutropenia. History was obtained primarily from the chart. He did not give a reliable history. He presented to the hospital with worsening left foot pain. He developed a worsening left plantar wound, which began bleeding. He also complained of temperature to 100.8, with chills. In the emergency room, he was found to be profoundly anemic, with a hemoglobin of 5. In addition, the patient is chronically leukopenic and neutropenic secondary to myelodysplastic syndrome. Cultures were obtained. He was transfused packed red blood cells. The patient has no complaints of pain at the present time. He denies any recurrent fever or chills. He has a chronic left plantar ulcer and was treated for osteomyelitis in late 2017, with a 6-week course of vancomycin. Wound cultures at that time were positive for MRSA and enterococcus. A wound culture obtained this admission is now growing presumed MRSA. PAST MEDICAL HISTORY: Positive for myelodysplastic syndrome with pancytopenia, hypertension, hyperlipidemia, history of gout, non-healing left foot ulcer, chronic osteomyelitis of the left foot. ALLERGIES: No known allergies. MEDICATIONS: Zyloprim, Tenormin, Aldactone, Lipitor. SOCIAL HISTORY: Former smoker. Lives in an assisted living complex. REVIEW OF SYSTEMS: Neurologic: No loss of consciousness, seizure activity, focal weakness. Cardiac: Negative for chest pain or palpitations. Respiratory: Negative for cough or sputum production. Gastrointestinal: Negative for vomiting or diarrhea. Genitourinary: Negative for urinary tract infection. LABORATORY DATA: White count 1.7, neutrophils 30, lymphocytes 58, hematocrit 21.8, platelet count 15. BUN 34, creatinine 1.6. Blood cultures pending. Wound culture: MRSA. PHYSICAL EXAMINATION: General: He is chronically ill appearing. Vital Signs: Temperature 98.5, blood pressure 131/57, pulse 82 and regular, respirations 20 per minute. HEENT: Sclerae anicteric. Cardiac: Heart sounds S1, S2. Lungs: Diminished breath sounds bilaterally. Abdomen: Soft. No tenderness elicited. No palpable liver or spleen. Extremities: Bilateral lower extremity edema with chronic venous stasis dermatitis. There is confluent erythema involving both lower extremities from the feet to the area of the knees. There does appear to be lymphangitic streaking on both lower extremities. On examination of the left foot, there is swelling of the left foot with a plantar ulcer present over the left 1st metatarsal head. IMPRESSION: 1. 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 2. Cellulitis and lymphangitis of the lower extremities bilaterally. 3. Recent fever/neutropenia, rule out febrile neutropenia. 4. Myelodysplastic syndrome/pancytopenia. 5. Profound anemia. PLAN: Await culture results. Surgical evaluation of the left foot ulcer. Sedimentation, C-reactive protein. Empiric coverage with vancomycin and cefepime. Local wound care. Contact precautions. Thank you for the kind referral. ELSA FAUSTIN M.D. JESSICA/[id number]
[2017-10-24] MEDS ORDERED: VANCOMYCIN 1 GM PREMIX - 1 GM/200 ML BAG IVPB SCH (15:00)
[2017-10-24 16:09] LABS: HEMATOCRIT 23.1 % (35.4-49); HEMOGLOBIN 8.4 GM/dL (11.7-16.9); MCH 33.6 pg (25.7-33.7); MCHC 36.2 g/dl (32.0-35.9); MEAN CELL VOLUME 92.7 fl (80-96); RBC 2.49 M/mm3 (4.00-5.60); RDW 15.1 % (11.9-15.9)
[2017-10-24 16:17] LABS: WHITE BLOOD COUNT 1.8 K/mm3 (4.0-10.0)
[2017-10-24 16:18] LABS: PLATELET COUNT 16 K/MM3 (134-434)
[2017-10-24] MEDS: VANCOMYCIN 1 GM PREMIX - 1 GM/200 ML BAG IVPB SCH (16:37)
[2017-10-24] MEDS: ACETAMINOPHEN 325 MG TABLET (FP) PO PRN (16:57)
--- NOTE | 2017-10-24 17:26 | HP ---
Admitting History and Physical - Admission Chief Complaint: pain to left foot. hx of open ulcer. daughter noted patient with increased fatigue / pale History of Present Illness: The patient is an 86 year old male with past medical history of hypertension, hyperlipidemia, myelodysplastic syndrome, and gout who presents to the ED with complaints of pain to his left foot. The patient has had bilateral lower extremity wounds since December. Since yesterday however the wound on his left lower extremity has opened up and began to bleed with shooting pains. He also reports developing a fever last night (Tmax 100.8) with associated chills. He denies any numbness or tingling. Denies any recent illness, chills, nausea, vomiting, diarrhea, cough, SOB, or urinary symptoms. PCP: Dr. Woodward History Source: Family Member, Medical Record Limitations to Obtaining History: Poor Historian - Past Medical History Cardiovascular: Yes: HTN Gastrointestinal: Yes: Constipation Heme/Onc: Yes: Current Chemotherapy, Myeloproliferative Synd Musculoskeletal: Yes: Osteoarthritis - Advance Directives Advance Directives: Yes: Health Care Proxy - Smoking History Smoking history: Former smoker Have you smoked in the past 12 months: No If you are a former smoker, when did you quit?: 40 years ago - Alcohol/Substance Use Hx Alcohol Use: No History of Substance Use: reports: None - Social History Usual Living Arrangement: Yes: Alone ADL: Support Services History of Recent Travel: No Home Medications - Allergies Allergies/Adverse Reactions: Allergies Allergy/AdvReac Type Severity Reaction Status Date / Time No Known Allergies Allergy Verified 08/11/17 15:06 - Home Medications Home Medications: Ambulatory Orders Allopurinol [Zyloprim -] 100 mg PO DAILY 06/10/17 Atenolol [Tenormin] 50 mg PO DAILY 06/10/17 Spironolactone [Aldactone] 25 mg PO DAILY 06/10/17 Vits A,C,E/Lutein/Minerals [I-Pauline Tablet] 1 each PO DAILY 06/10/17 Atorvastatin Calcium 20 mg PO HS 10/23/17 Ferrous Sulfate 325 mg PO BID 10/23/17 Review of Systems - Review of Systems Constitutional: reports: No Symptoms Eyes: reports: No Symptoms HENT: reports: No Symptoms Neck: reports: No Symptoms Cardiovascular: reports: No Symptoms Respiratory: reports: No Symptoms Gastrointestinal: reports: No Symptoms Genitourinary: reports: No Symptoms Breasts: reports: No Symptoms Reported Musculoskeletal: reports: No Symptoms Integumentary: reports: Change in Color, Erythema, Other (chronic changes LE) Endocrine: reports: Increased Thirst Psychiatric: reports: Altered Sleep Pattern Physical Examination Vital Signs: Vital Signs Temperature 98.6 F 10/24/17 16:02 Pulse Rate 84 10/24/17 16:02 Respiratory Rate 22 10/24/17 16:02 Blood Pressure 125/55 10/24/17 16:02 O2 Sat by Pulse Oximetry (%) 96 10/24/17 09:00 Constitutional: Yes: Well Nourished, Calm, Other (pale) Eyes: Yes: Conjunctiva Clear, EOM Intact HENT: Yes: Atraumatic, Normocephalic Neck: Yes: Supple, Trachea Midline Cardiovascular: Yes: Regular Rate and Rhythm Respiratory: Yes: Regular, CTA Bilaterally Gastrointestinal: Yes: Normal Bowel Sounds, Soft ...Rectal Exam: Yes: Deferred Renal/: Yes: WNL Breast(s): Yes: WNL Musculoskeletal: Yes: WNL Extremities: Yes: Cool, Erythema, Other (chronic changes) Edema: No Peripheral Pulses WNL: Yes Integumentary: Yes: Pressure Ulcer, Venous Stasis Changes Wound/Incision: Yes: Well Approximated Neurological: Yes: Alert, Oriented Psychiatric: Yes: Alert, Oriented Labs: CBC, BMP 10/24/17 15:45 10/23/17 22:16 Problem List - Problems (1) Anemia Code(s): D64.9 - ANEMIA, UNSPECIFIED (2) Foot ulcer Code(s): L97.509 - NON-PRESSURE CHRONIC ULCER OTH PRT UNSP FOOT W UNSP SEVERITY (3) Pancytopenia Code(s): D61.818 - OTHER PANCYTOPENIA (4) HLD (hyperlipidemia) Code(s): E78.5 - HYPERLIPIDEMIA, UNSPECIFIED (5) HTN (hypertension) Code(s): I10 - ESSENTIAL (PRIMARY) HYPERTENSION (6) Infected ulcer of skin Code(s): L98.499 - NON-PRESSURE CHRONIC ULCER OF SKIN OF SITES W UNSP SEVERITY; L08.9 - LOCAL INFECTION OF THE SKIN AND SUBCUTANEOUS TISSUE, UNSP (7) Ulcer of left foot Code(s): L97.529 - NON-PRESSURE CHRONIC ULCER OTH PRT LEFT FOOT W UNSP SEVERITY Qualifiers:
[2017-10-24] MEDS: CEFEPIME HCL/D5W 1 GM/50 ML BAG IVPB SCH (21:00)
[2017-10-24] MEDS: ATORVASTATIN CA 20 MG TABLET (FP) PO SCH (21:00)
[2017-10-24] MEDS ORDERED: FERROUS SO4 325 MG TABLET (FP) PO SCH (22:00)
--- NOTE | 2017-10-25 01:35 | PN ---
Progress Note (short form) - Note Progress Note: patient seen and examined sitting in chair / daughter in room case discussed extensively with daughter plan of care / treatment / lab results all questions answered Problem List - Problems (1) Anemia Code(s): D64.9 - ANEMIA, UNSPECIFIED (2) Foot ulcer Code(s): L97.509 - NON-PRESSURE CHRONIC ULCER OTH PRT UNSP FOOT W UNSP SEVERITY (3) Pancytopenia Code(s): D61.818 - OTHER PANCYTOPENIA (4) HLD (hyperlipidemia) Code(s): E78.5 - HYPERLIPIDEMIA, UNSPECIFIED (5) HTN (hypertension) Code(s): I10 - ESSENTIAL (PRIMARY) HYPERTENSION (6) Infected ulcer of skin Code(s): L98.499 - NON-PRESSURE CHRONIC ULCER OF SKIN OF SITES W UNSP SEVERITY; L08.9 - LOCAL INFECTION OF THE SKIN AND SUBCUTANEOUS TISSUE, UNSP (7) Ulcer of left foot Code(s): L97.529 - NON-PRESSURE CHRONIC ULCER OTH PRT LEFT FOOT W UNSP SEVERITY Qualifiers:
[2017-10-25 07:17] LABS: HEMATOCRIT 18.9 % (35.4-49); MCH 33.4 pg (25.7-33.7); MCHC 36.6 g/dl (32.0-35.9); MEAN CELL VOLUME 91.2 fl (80-96); MEAN PLT VOLUME 8.4 fl (7.5-11.1); RBC 2.08 M/mm3 (4.00-5.60); RDW 15.2 % (11.9-15.9)
[2017-10-25 07:26] LABS: HEMOGLOBIN 6.9 GM/dL (11.7-16.9); PLATELET COUNT 12 K/MM3 (134-434); WHITE BLOOD COUNT 1.2 K/mm3 (4.0-10.0)
[2017-10-25 07:39] LABS: ANION GAP 10 (8-16); BLOOD UREA NITROGEN 35 mg/dL (7-18); CALCIUM 8.2 mg/dL (8.5-10.1); CHLORIDE 106 mmol/L (98-107); CO2 22 mmol/L (21-32); CREATININE 1.4 mg/dL (0.7-1.3); GLUCOSE,RANDOM 115 mg/dL (74-106); MAGNESIUM 2.1 mg/dL (1.8-2.4); POTASSIUM 3.9 mmol/L (3.5-5.1); SODIUM 138 mmol/L (136-145)
[2017-10-25 07:40] LABS: ALBUMIN 2.8 g/dl (3.4-5.0); ANION GAP 10 (8-16); BLOOD UREA NITROGEN 34 mg/dL (7-18); CHLORIDE 106 mmol/L (98-107); CO2 22 mmol/L (21-32); CREATININE 1.4 mg/dL (0.7-1.3); GLUCOSE,RANDOM 117 mg/dL (74-106); POTASSIUM 3.9 mmol/L (3.5-5.1); SGOT/AST 13 U/L (15-37); SGPT/ALT 11 U/L (12-78); SODIUM 138 mmol/L (136-145); TOT PROT 6.2 g/dl (6.4-8.2)
[2017-10-25 07:41] LABS: ALK PHOS 80 U/L (45-117)
--- NOTE | 2017-10-25 09:39 | PN ---
Progress Note (short form) - Note Progress Note: Seen in follow up. No new complaints. Mildly confused, as before. IV access disrupted accidentally yesterday with significant blood loss reported. Inpatient Meds reviewed. Current Medications Generic Name Dose Route Start Last Admin Trade Name Freq PRN Reason Stop Dose Admin Acetaminophen 650 mg 10/24/17 05:32 10/24/17 16:57 Tylenol - PO 650 mg Q4H PRN Administration PAIN LEVEL 1-5 Allopurinol 100 mg 10/25/17 10:00 Zyloprim - PO DAILY [facility] Atenolol 50 mg 10/25/17 10:00 Tenormin - PO DAILY [facility] Atorvastatin Calcium 20 mg 10/24/17 22:00 10/24/17 21:00 Lipitor - PO 20 mg HS ME[facility]A Administration Cefepime HCl 1 gm in 50 mls @ 100 mls/hr 10/24/17 22:00 10/24/17 21:00 Maxipime 1 Gm Premix Ivpb IVPB 100 mls/hr BID ME[facility]A Administration Protocol Vancomycin HCl 1 gm in 200 mls @ 150 mls/hr 10/24/17 16:00 10/24/17 16:37 Vancomycin 1 Gm Premix - IVPB 150 mls/hr DAILY@1600 [facility]A Administration Protocol Spironolactone 25 mg 10/24/17 10:45 10/24/17 11:23 Aldactone - PO 25 mg DAILY ME[facility]A Administration Last Vital Signs Last Vital Signs Temp Pulse Resp BP Pulse Ox 99.7 F H 75 20 118/47 96 10/25/17 06:00 10/25/17 06:00 10/25/17 06:00 10/25/17 06:00 10/24/17 21:00 General: In no acute distress. Extremities: Pallor, no icterus. Chest:breathing comfortably Abdomen: Non-distended Neuro: Alert, mildly confused, non-focal. Labs CBC, BMP 10/25/17 06:00 10/25/17 06:00 Assessment. Known MDS, previously apparently only with anemia, now with apparently acute exacerbation in anemia, with pancytopenia. Acute deterioration likely attributable to soft-tissue infection, but cannot exclude possibility of progression of disease. Peripheral smear reviewed yesterday - no blasts seen, thrombocytopenia confirmed , several mature neutrophils noted Continue broad spectrum antibiotic coverage, as for febrile neutropenia. Blood cultures pending. Neutropenic precautions. Transfuse RBCs for symptomatic anemia. Prophylactic platelet transfusion to keep platelet count above 10K - would administer 1 unit today. Close observation. If counts do not improve with anti-biotics then would need to investigate more specifically for progression of disease - flow cytometry / bone marrow biopsy. 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 Ai Barnes) Will follow.
[2017-10-25] MEDS ORDERED: MINERALS PO SCH (10:00)
[2017-10-25] MEDS ORDERED: VITS A C E PO SCH (10:00)
[2017-10-25] MEDS ORDERED: LUTEIN PO SCH (10:00)
[2017-10-25] MEDS ORDERED: [UNRECOGNIZED DRUG - OTHER] PO SCH (10:00)
[2017-10-25] MEDS: ALLOPURINOL 100 MG TABLET (FP) PO SCH (10:02)
[2017-10-25] MEDS: SPIRONOLACTONE 25 MG TABLET (FP) PO SCH (10:02)
[2017-10-25] MEDS: ATENOLOL 50 MG TABLET (FP) PO SCH (10:02)
[2017-10-25] MEDS: ACETAMINOPHEN 325 MG TABLET (FP) PO PRN ×2 (10:31→17:50)
[2017-10-25 10:39] LABS: ANISOCYTOSIS 1+; MACROCYTOSIS 1+; PLATELET ESTIMATE DECREASED
[2017-10-25] MEDS: CEFEPIME HCL/D5W 1 GM/50 ML BAG IVPB SCH ×2 (11:10→22:05)
--- NOTE | 2017-10-25 11:44 | PN ---
Progress Note, Physician History of Present Illness: Awake C/O generalized body pain No c/o leg or L foot pain Low grade temp Pancytopenic - Current Medication List Current Medications: Active Medications Acetaminophen (Tylenol -) 650 mg PO Q4H PRN PRN Reason: PAIN LEVEL 1-5 Last Admin: 10/25/17 10:31 Dose: 650 mg Allopurinol (Zyloprim -) 100 mg PO DAILY [facility] Last Admin: 10/25/17 10:02 Dose: 100 mg Atenolol (Tenormin -) 50 mg PO DAILY [facility] Last Admin: 10/25/17 10:02 Dose: 50 mg Atorvastatin Calcium (Lipitor -) 20 mg PO HS [facility] Last Admin: 10/24/17 21:00 Dose: 20 mg Cefepime HCl (Maxipime 1 Gm Premix Ivpb) 1 gm in 50 mls @ 100 mls/hr IVPB BID [facility] PRN Reason: Protocol Last Admin: 10/25/17 11:10 Dose: 100 mls/hr Vancomycin HCl (Vancomycin 1 Gm Premix -) 1 gm in 200 mls @ 150 mls/hr IVPB DAILY@1600 [facility] PRN Reason: Protocol Last Admin: 10/24/17 16:37 Dose: 150 mls/hr Spironolactone (Aldactone -) 25 mg PO DAILY [facility] Last Admin: 10/25/17 10:02 Dose: 25 mg - Objective Vital Signs: Vital Signs Temperature 99.7 F H 10/25/17 06:00 Pulse Rate 75 10/25/17 06:00 Respiratory Rate 20 10/25/17 06:00 Blood Pressure 118/47 10/25/17 06:00 O2 Sat by Pulse Oximetry (%) 96 10/24/17 21:00 Constitutional: Yes: No Distress Eyes: Yes: Conjunctiva Clear Cardiovascular: Yes: Regular Rate and Rhythm, S1, S2 Respiratory: Yes: CTA Bilaterally Gastrointestinal: Yes: Normal Bowel Sounds, Soft. No: Tenderness Extremities: Yes: Other (+ bilateral LE stasis dermatitis, erythema/ warmth. L plantar ulcer.) Edema: Yes Labs: CBC, BMP 10/25/17 06:00 10/25/17 06:00 Assessment/Plan Bilateral LE cellulitis Non -healing L foot ulcer R/O osteomyelitis Febrile neutropenia Pancytopenia Azotemia Await c/s Continue vanco/ cefepime Surgical evaluation, foot wound
--- NOTE | 2017-10-25 12:25 | PN ---
Progress Note (short form) - Note Progress Note: In bed sitting uo\p no distress / confused ?? s/p transfusion 2 pRBC yesterday however yesterday with episode of bleeding from IV site removed by patient Vital Signs Period Temp Pulse Resp BP Sys/Rios Pulse Ox Last 24 Hr 98.2 F-99.7 F 65-84 20-22 109-125/47-70 96 neck supple heart S1/S2 Lungs clear bilat abd soft benign ext left food dressing in place CBC, BMP 10/25/17 06:00 10/25/17 06:00 Microbiology 10/23/17 22:16 Blood - Peripheral Venous Blood Culture - Preliminary NO GROWTH OBTAINED AFTER 24 HOURS, INCUBATION TO CONTINUE FOR 4 DAYS. 10/23/17 21:22 Blood - Peripheral Venous Blood Culture - Preliminary NO GROWTH OBTAINED AFTER 24 HOURS, INCUBATION TO CONTINUE FOR 4 DAYS. Active Medications Acetaminophen (Tylenol -) 650 mg PO Q4H PRN PRN Reason: PAIN LEVEL 1-5 Last Admin: 10/25/17 10:31 Dose: 650 mg Allopurinol (Zyloprim -) 100 mg PO DAILY [facility] Last Admin: 10/25/17 10:02 Dose: 100 mg Atenolol (Tenormin -) 50 mg PO DAILY [facility] Last Admin: 10/25/17 10:02 Dose: 50 mg Atorvastatin Calcium (Lipitor -) 20 mg PO HS [facility] Last Admin: 10/24/17 21:00 Dose: 20 mg Cefepime HCl (Maxipime 1 Gm Premix Ivpb) 1 gm in 50 mls @ 100 mls/hr IVPB BID [facility] PRN Reason: Protocol Last Admin: 10/25/17 11:10 Dose: 100 mls/hr Vancomycin HCl (Vancomycin 1 Gm Premix -) 1 gm in 200 mls @ 150 mls/hr IVPB DAILY@1600 [facility] PRN Reason: Protocol Last Admin: 10/24/17 16:37 Dose: 150 mls/hr Spironolactone (Aldactone -) 25 mg PO DAILY [facility] Last Admin: 10/25/17 10:02 Dose: 25 mg # MDS Pancytopenia neutropenia severe anemia Heme/ onc transfuse pRBC / Platelets as needed # non healing L foot ulcer ??osteomyelitis severe anemia PVD transfuse / culture / emperic tx for osteo wound care follow up with Dr Read # CKD trend renal function Problem List - Problems (1) Anemia Code(s): D64.9 - ANEMIA, UNSPECIFIED (2) Foot ulcer Code(s): L97.509 - NON-PRESSURE CHRONIC ULCER OTH PRT UNSP FOOT W UNSP SEVERITY (3) Pancytopenia Code(s): D61.818 - OTHER PANCYTOPENIA (4) HLD (hyperlipidemia) Code(s): E78.5 - HYPERLIPIDEMIA, UNSPECIFIED (5) HTN (hypertension) Code(s): I10 - ESSENTIAL (PRIMARY) HYPERTENSION (6) Infected ulcer of skin Code(s): L98.499 - NON-PRESSURE CHRONIC ULCER OF SKIN OF SITES W UNSP SEVERITY; L08.9 - LOCAL INFECTION OF THE SKIN AND SUBCUTANEOUS TISSUE, UNSP (7) Ulcer of left foot Code(s): L97.529 - NON-PRESSURE CHRONIC ULCER OTH PRT LEFT FOOT W UNSP SEVERITY Qualifiers:
[2017-10-25] MEDS ORDERED: PT OWN MED DRAWER 7, Y5N ONE (16:11)
[2017-10-25] MEDS: VANCOMYCIN 1 GM PREMIX - 1 GM/200 ML BAG IVPB SCH (16:18)
[2017-10-25] MEDS: ATORVASTATIN CA 20 MG TABLET (FP) PO SCH (22:05)
[2017-10-26 08:17] LABS: HEMATOCRIT 25.8 % (35.4-49); HEMOGLOBIN 9.3 GM/dL (11.7-16.9); MCH 32.4 pg (25.7-33.7); MEAN CELL VOLUME 90.2 fl (80-96); MEAN PLT VOLUME 8.7 fl (7.5-11.1); PLATELET COUNT 44 K/MM3 (134-434); RBC 2.86 M/mm3 (4.00-5.60)
[2017-10-26 08:19] LABS: WHITE BLOOD COUNT 1.1 K/mm3 (4.0-10.0)
[2017-10-26 08:32] LABS: CHLORIDE 109 mmol/L (98-107); POTASSIUM 3.7 mmol/L (3.5-5.1); SODIUM 138 mmol/L (136-145)
[2017-10-26 08:43] LABS: ANION GAP 7 (8-16); BLOOD UREA NITROGEN 30 mg/dL (7-18); CALCIUM 7.9 mg/dL (8.5-10.1); CO2 22 mmol/L (21-32); CREATININE 1.3 mg/dL (0.7-1.3); GLUCOSE,RANDOM 107 mg/dL (74-106)
[2017-10-26] MEDS: SPIRONOLACTONE 25 MG TABLET (FP) PO SCH (09:26)
[2017-10-26] MEDS: ALLOPURINOL 100 MG TABLET (FP) PO SCH (09:26)
[2017-10-26] MEDS: ATENOLOL 50 MG TABLET (FP) PO SCH (09:27)
[2017-10-26] MEDS: CEFEPIME HCL/D5W 1 GM/50 ML BAG IVPB SCH ×2 (09:27→21:27)
--- NOTE | 2017-10-26 11:02 | PN ---
Progress Note (short form) - Note Progress Note: In bed sitting uo\\p no distress / daughter at bedside seen with Dr Read plan of care discussed with daughter c/o of "red all over" -- probably 2/2 to Vanco no c/o pain to LE except when examined Vital Signs Period Temp Pulse Resp BP Sys/Rios Pulse Ox Last 24 Hr 97.8 F-98.3 F 63-72 20-22 108-130/47-72 97 neck supple heart S1/S2 Lungs clear bilat abd soft benign ext left foot base of 1st toe open wound borders clean + pulses CBC, BMP 10/26/17 06:30 10/26/17 06:30 Microbiology 10/23/17 22:16 Blood - Peripheral Venous Blood Culture - Preliminary NO GROWTH OBTAINED AFTER 48 HOURS, INCUBATION TO CONTINUE FOR 3 DAYS. 10/23/17 21:22 Blood - Peripheral Venous Blood Culture - Preliminary NO GROWTH OBTAINED AFTER 48 HOURS, INCUBATION TO CONTINUE FOR 3 DAYS. Active Medications Acetaminophen (Tylenol -) 650 mg PO Q4H PRN PRN Reason: PAIN LEVEL 1-5 Last Admin: 10/25/17 17:50 Dose: 650 mg Allopurinol (Zyloprim -) 100 mg PO DAILY [facility] Last Admin: 10/26/17 09:26 Dose: 100 mg Atenolol (Tenormin -) 50 mg PO DAILY [facility] Last Admin: 10/26/17 09:27 Dose: 50 mg Atorvastatin Calcium (Lipitor -) 20 mg PO HS [facility] Last Admin: 10/25/17 22:05 Dose: 20 mg Collagenase (Santyl -) 1 applic TP DAILY [facility] Diphenhydramine HCl (Benadryl -) 25 mg PO Q6H PRN PRN Reason: FOR ITCHING Cefepime HCl (Maxipime 1 Gm Premix Ivpb) 1 gm in 50 mls @ 100 mls/hr IVPB BID [facility] PRN Reason: Protocol Last Admin: 10/26/17 09:27 Dose: 100 mls/hr Vancomycin HCl (Vancomycin 1 Gm Premix -) 1 gm in 200 mls @ 80 mls/hr IVPB DAILY@1600 [facility] PRN Reason: Protocol Lactic Acid (Lac-Hydrin 12) 1 applic TP BID PRN PRN Reason: WOUND CARE Spironolactone (Aldactone -) 25 mg PO DAILY [facility] Last Admin: 10/26/17 09:26 Dose: 25 mg # MDS Pancytopenia -- s/p transfusion now 44K neutropenia severe anemia --- s/p transfusion 4 units hgb (.3 Heme/ onc trend labs # non healing L foot ulcer ??osteomyelitis sed rate 102 will slow down IV Vanco to alleviate red man syndrome benadryl for itching PVD culture pending / emperic tx for osteo wound care continue wound management per Dr Read Podiatry follow up # CKD trend renal function Problem List - Problems (1) Anemia Code(s): D64.9 - ANEMIA, UNSPECIFIED (2) Foot ulcer Code(s): L97.509 - NON-PRESSURE CHRONIC ULCER OTH PRT UNSP FOOT W UNSP SEVERITY (3) Pancytopenia Code(s): D61.818 - OTHER PANCYTOPENIA (4) HLD (hyperlipidemia) Code(s): E78.5 - HYPERLIPIDEMIA, UNSPECIFIED (5) HTN (hypertension) Code(s): I10 - ESSENTIAL (PRIMARY) HYPERTENSION (6) Infected ulcer of skin Code(s): L98.499 - NON-PRESSURE CHRONIC ULCER OF SKIN OF SITES W UNSP SEVERITY; L08.9 - LOCAL INFECTION OF THE SKIN AND SUBCUTANEOUS TISSUE, UNSP (7) Ulcer of left foot Code(s): L97.529 - NON-PRESSURE CHRONIC ULCER OTH PRT LEFT FOOT W UNSP SEVERITY Qualifiers:
[2017-10-26 11:20] LABS: PLATELET ESTIMATE DECREASED
[2017-10-26] MEDS: COLLAGENASE CLOSTRIDIUM HIST. 30 GRAMS TUBE TP SCH (11:31)
[2017-10-26] MEDS: AMMONIUM LACTATE 12% LOTION 225 GM BOTTLE TP PRN (11:31)
--- NOTE | 2017-10-26 11:42 | PN ---
Progress Note, Physician History of Present Illness: Awake OOB in chair More comfortable today No c/o leg or L foot pain Afebrile Remains neutropenic/ pancytopenic Azotemia improved - Current Medication List Current Medications: Active Medications Acetaminophen (Tylenol -) 650 mg PO Q4H PRN PRN Reason: PAIN LEVEL 1-5 Last Admin: 10/25/17 17:50 Dose: 650 mg Allopurinol (Zyloprim -) 100 mg PO DAILY [facility] Last Admin: 10/26/17 09:26 Dose: 100 mg Atenolol (Tenormin -) 50 mg PO DAILY [facility] Last Admin: 10/26/17 09:27 Dose: 50 mg Atorvastatin Calcium (Lipitor -) 20 mg PO HS [facility] Last Admin: 10/25/17 22:05 Dose: 20 mg Collagenase (Santyl -) 1 applic TP DAILY [facility] Last Admin: 10/26/17 11:31 Dose: 1 appful Diphenhydramine HCl (Benadryl -) 25 mg PO Q6H PRN PRN Reason: FOR ITCHING Cefepime HCl (Maxipime 1 Gm Premix Ivpb) 1 gm in 50 mls @ 100 mls/hr IVPB BID [facility] PRN Reason: Protocol Last Admin: 10/26/17 09:27 Dose: 100 mls/hr Vancomycin HCl (Vancomycin 1 Gm Premix -) 1 gm in 200 mls @ 80 mls/hr IVPB DAILY@1600 [facility] PRN Reason: Protocol Lactic Acid (Lac-Hydrin 12) 1 applic TP BID PRN PRN Reason: WOUND CARE Last Admin: 10/26/17 11:31 Dose: 1 appful Spironolactone (Aldactone -) 25 mg PO DAILY [facility] Last Admin: 10/26/17 09:26 Dose: 25 mg - Objective Vital Signs: Vital Signs Temperature 98 F 10/26/17 10:00 Pulse Rate 72 10/26/17 10:00 Respiratory Rate 20 10/26/17 10:00 Blood Pressure 129/72 10/26/17 10:00 O2 Sat by Pulse Oximetry (%) 97 10/25/17 21:00 Constitutional: Yes: No Distress Cardiovascular: Yes: Regular Rate and Rhythm, S1, S2 Respiratory: Yes: CTA Bilaterally Gastrointestinal: Yes: Normal Bowel Sounds, Soft. No: Tenderness Extremities: Yes: Other (decreased erythema and swelling LE bilaterally. No drainage.) Labs: CBC, BMP 10/26/17 06:30 10/26/17 06:30 Assessment/Plan Bilateral LE cellulitis improved Non -healing L foot ulcer R/O osteomyelitis Febrile neutropenia Pancytopenia Azotemia improved Continue vanco/ cefepime Vancomycin trough Surgical evaluation, foot wound
[2017-10-26] MEDS: ACETAMINOPHEN 325 MG TABLET (FP) PO PRN (11:47)
[2017-10-26] MEDS: diphenhydrAMINE HCL 25 MG CAPSULE (FP) PO PRN ×2 (11:47→20:16)
[2017-10-26] MEDS: VANCOMYCIN 1 GM PREMIX - 1 GM/200 ML BAG IVPB SCH (15:33)
--- NOTE | 2017-10-26 18:48 | PN ---
Progress Note (short form) - Note Progress Note: VAscular Surgery Pt seen and examined. Doing well Left foot wound pink, with good granulation. Palpable pulses. Santyl to wound daily. YAIMA bandages for compression. Lex Read DO
--- NOTE | 2017-10-26 20:28 | CONSULT ---
Consult - text type - Consultation Consultation Note: Asked to see patient by Dr. Read for re-opened wound sub 1st met left foot. Patient never got prescribed orthoses as he has no insurance coverage for them. Admitted 10/23/17. vss, tmax 98.6 +granulating wound sub 1st met left, -drainage, +localized cellulitis, -om on xray, r/o om grade 2-3 wound sub 1 left santyl dressing change daily. Needs to be offloaded with orthowedge shoe. mri ordered. wound culture. vascular on case. will follow.
[2017-10-26] MEDS: ATORVASTATIN CA 20 MG TABLET (FP) PO SCH (21:27)
--- NOTE | 2017-10-26 23:12 | PN ---
Progress Note (short form) - Note Progress Note: Patient seen and examined angry, mildly confused denies any specific complaints AFVSS Cor: RSR, No murmurs, No gallops Lungs: Clear to P&A Abd: Soft, Normal bowel sounds, No organomegaly Ext:No significant edema + erythematous skin rash Abnormal Lab Results 10/23/17 10/26/17 10/26/17 22:20 06:30 06:30 WBC 1.1 L* RBC 2.86 L D Hgb 9.3 L D Hct 25.8 L D MCHC 36.0 H RDW 16.0 H Plt Count 44 L D Monocytes % (Manual) 3 L Chloride 109 H Anion Gap 7 L BUN 30 H Random Glucose 107 H Calcium 7.9 L Crossmatch See Detail Active Medications Generic Name Dose Route Start Last Admin Trade Name Freq PRN Reason Stop Dose Admin Acetaminophen 650 mg 10/24/17 05:32 10/26/17 11:47 Tylenol - PO 650 mg Q4H PRN Administration PAIN LEVEL 1-5 Allopurinol 100 mg 10/25/17 10:00 10/26/17 09:26 Zyloprim - PO 100 mg DAILY [facility] Administration Atenolol 50 mg 10/25/17 10:00 10/26/17 09:27 Tenormin - PO 50 mg DAILY [facility] Administration Atorvastatin Calcium 20 mg 10/24/17 22:00 10/26/17 21:27 Lipitor - PO 20 mg HS [facility] Administration Collagenase 1 applic 10/26/17 10:00 10/26/17 11:31 Santyl - TP 1 appful DAILY [facility] Administration Diphenhydramine HCl 25 mg 10/26/17 10:55 10/26/17 20:16 Benadryl - PO 25 mg Q6H PRN Administration FOR ITCHING Cefepime HCl 1 gm in 50 mls @ 100 mls/hr 10/24/17 22:00 10/26/17 21:27 Maxipime 1 Gm Premix Ivpb IVPB 100 mls/hr BID [facility] Administration Protocol Vancomycin HCl 1 gm in 200 mls @ 80 mls/hr 10/26/17 16:00 10/26/17 15:33 Vancomycin 1 Gm Premix - IVPB 80 mls/hr DAILY@1600 [facility] Administration Protocol Lactic Acid 1 applic 10/26/17 09:41 10/26/17 11:31 Lac-Hydrin 12 TP 1 appful BID PRN Administration WOUND CARE Spironolactone 25 mg 10/24/17 10:45 10/26/17 09:26 Aldactone - PO 25 mg DAILY [facility] Administration A/P 86 y/o patient with Known MDS, previously apparently only with anemia, now with apparently acute exacerbation in anemia, with pancytopenia. Acute deterioration likely attributable to soft-tissue infection, but cannot exclude possibility of progression of disease. Cellulitis, r/o osteomyelitis antibiotics skin rash---derm consult ? antibiotics Transfusion supporta s necessary check flow/FISH/cytogenetics Will discuss with Dr. Barnes
[2017-10-27 07:58] LABS: HEMATOCRIT 25.9 % (35.4-49); HEMOGLOBIN 9.3 GM/dL (11.7-16.9); MCH 32.3 pg (25.7-33.7); MCHC 36.1 g/dl (32.0-35.9); MEAN CELL VOLUME 89.6 fl (80-96); MEAN PLT VOLUME 9.1 fl (7.5-11.1); RBC 2.89 M/mm3 (4.00-5.60); RDW 15.4 % (11.9-15.9)
[2017-10-27 08:16] LABS: PLATELET COUNT 35 K/MM3 (134-434); WHITE BLOOD COUNT 0.9 K/mm3 (4.0-10.0)
[2017-10-27 08:25] LABS: CHLORIDE 110 mmol/L (98-107); POTASSIUM 4.1 mmol/L (3.5-5.1); SODIUM 140 mmol/L (136-145)
[2017-10-27 08:32] LABS: ALBUMIN 2.8 g/dl (3.4-5.0); ALK PHOS 94 U/L (45-117); ANION GAP 7 (8-16); BILIRUBIN,TOTAL 0.9 mg/dL (0.2-1.0); BLOOD UREA NITROGEN 30 mg/dL (7-18); CALCIUM 8.3 mg/dL (8.5-10.1); CO2 23 mmol/L (21-32); CREATININE 1.3 mg/dL (0.7-1.3); GLUCOSE,RANDOM 94 mg/dL (74-106); SGOT/AST 14 U/L (15-37); SGPT/ALT 18 U/L (12-78); TOT PROT 6.5 g/dl (6.4-8.2)
[2017-10-27 09:09] LABS: PLATELET ESTIMATE DECREASED
[2017-10-27] MEDS: SPIRONOLACTONE 25 MG TABLET (FP) PO SCH (10:12)
[2017-10-27] MEDS: ATENOLOL 50 MG TABLET (FP) PO SCH (10:12)
[2017-10-27] MEDS: ALLOPURINOL 100 MG TABLET (FP) PO SCH (10:12)
[2017-10-27] MEDS: AMMONIUM LACTATE 12% LOTION 225 GM BOTTLE TP PRN (10:13)
[2017-10-27] MEDS: CEFEPIME HCL/D5W 1 GM/50 ML BAG IVPB SCH ×2 (10:13→21:56)
[2017-10-27] MEDS: COLLAGENASE CLOSTRIDIUM HIST. 30 GRAMS TUBE TP SCH (10:14)
--- NOTE | 2017-10-27 12:43 | PN ---
Progress Note (short form) - Note Progress Note: Patient seen today in better spirits. vss Tmax 98.6 awaiting mri results, 0.9 r/o om Continue santyl to left foot. Awaiting MRI. will follow.
--- NOTE | 2017-10-27 13:34 | PN ---
Progress Note, Physician History of Present Illness: Awake OOB in chair More comfortable Afebrile Remains neutropenic/ pancytopenic Azotemia improved - Current Medication List Current Medications: Active Medications Acetaminophen (Tylenol -) 650 mg PO Q4H PRN PRN Reason: PAIN LEVEL 1-5 Last Admin: 10/26/17 11:47 Dose: 650 mg Allopurinol (Zyloprim -) 100 mg PO DAILY [facility] Last Admin: 10/27/17 10:12 Dose: 100 mg Atenolol (Tenormin -) 50 mg PO DAILY [facility] Last Admin: 10/27/17 10:12 Dose: 50 mg Atorvastatin Calcium (Lipitor -) 20 mg PO HS [facility] Last Admin: 10/26/17 21:27 Dose: 20 mg Collagenase (Santyl -) 1 applic TP DAILY [facility] Last Admin: 10/27/17 10:14 Dose: 1 appful Diphenhydramine HCl (Benadryl -) 25 mg PO Q6H PRN PRN Reason: FOR ITCHING Last Admin: 10/26/17 20:16 Dose: 25 mg Cefepime HCl (Maxipime 1 Gm Premix Ivpb) 1 gm in 50 mls @ 100 mls/hr IVPB BID [facility] PRN Reason: Protocol Last Admin: 10/27/17 10:13 Dose: 100 mls/hr Vancomycin HCl (Vancomycin 1 Gm Premix -) 1 gm in 200 mls @ 80 mls/hr IVPB DAILY@1600 [facility] PRN Reason: Protocol Last Admin: 10/26/17 15:33 Dose: 80 mls/hr Lactic Acid (Lac-Hydrin 12) 1 applic TP BID PRN PRN Reason: WOUND CARE Last Admin: 10/27/17 10:13 Dose: 1 appful Spironolactone (Aldactone -) 25 mg PO DAILY [facility] Last Admin: 10/27/17 10:12 Dose: 25 mg - Objective Vital Signs: Vital Signs Temperature 98.6 F 10/27/17 10:00 Pulse Rate 57 L 10/27/17 10:00 Respiratory Rate 20 10/27/17 10:00 Blood Pressure 116/52 10/27/17 10:00 O2 Sat by Pulse Oximetry (%) 99 10/27/17 09:00 Constitutional: Yes: No Distress Cardiovascular: Yes: Regular Rate and Rhythm, S1, S2 Respiratory: Yes: CTA Bilaterally Gastrointestinal: Yes: Normal Bowel Sounds Extremities: Yes: Other (LE dressed) Labs: CBC, BMP 10/27/17 06:15 10/27/17 06:15 Assessment/Plan Bilateral LE cellulitis improved Non -healing L foot ulcer R/O osteomyelitis Febrile neutropenia Pancytopenia Azotemia improved Continue vanco/ cefepime Vancomycin trough pending MRI ordered Surgical evaluation, foot wound
--- NOTE | 2017-10-27 14:58 | PN ---
Progress Note (short form) - Note Progress Note: pt seen and examined. Angry/un-coperative/hostile did not want to answer any questions. O/E: Inspection: + rash present on the skin. Temp Pulse Resp BP Pulse Ox 98.6 F 57 L 20 116/52 99 10/27/17 10:00 10/27/17 10:00 10/27/17 10:00 10/27/17 10:00 10/27/17 09:00 CBC, BMP 10/27/17 06:15 10/27/17 06:15 Current Medications Generic Name Dose Route Start Last Admin Trade Name Freq PRN Reason Stop Dose Admin Acetaminophen 650 mg 10/24/17 05:32 10/26/17 11:47 Tylenol - PO 650 mg Q4H PRN Administration PAIN LEVEL 1-5 Allopurinol 100 mg 10/25/17 10:00 10/27/17 10:12 Zyloprim - PO 100 mg DAILY [facility] Administration Atenolol 50 mg 10/25/17 10:00 10/27/17 10:12 Tenormin - PO 50 mg DAILY [facility] Administration Atorvastatin Calcium 20 mg 10/24/17 22:00 10/26/17 21:27 Lipitor - PO 20 mg HS [facility] Administration Collagenase 1 applic 10/26/17 10:00 10/27/17 10:14 Santyl - TP 1 appful DAILY [facility] Administration Diphenhydramine HCl 25 mg 10/26/17 10:55 10/26/17 20:16 Benadryl - PO 25 mg Q6H PRN Administration FOR ITCHING Cefepime HCl 1 gm in 50 mls @ 100 mls/hr 10/24/17 22:00 10/27/17 10:13 Maxipime 1 Gm Premix Ivpb IVPB 100 mls/hr BID [facility] Administration Protocol Vancomycin HCl 1 gm in 200 mls @ 80 mls/hr 10/26/17 16:00 10/26/17 15:33 Vancomycin 1 Gm Premix - IVPB 80 mls/hr DAILY@1600 [facility] Administration Protocol Lactic Acid 1 applic 10/26/17 09:41 10/27/17 10:13 Lac-Hydrin 12 TP 1 appful BID PRN Administration WOUND CARE Spironolactone 25 mg 10/24/17 10:45 10/27/17 10:12 Aldactone - PO 25 mg DAILY [facility] Administration MDS: regular transfusion thresholds daily monitoring Acute deterioration likely attributable to soft-tissue infection. f/u on flow/FISH/cytogenetics Left my cell phone number with [facility] , Cellulitis, r/o osteomyelitis MRI pending ID/podiatry follow-up noted. on abx will monitor whit count skin rash---derm consult Misc: Patient's been hostile (x2 yesterday's visit too), unclear if this his baseline personality/?anger/dementia. mk ENG
[2017-10-27] MEDS ORDERED: PT OWN MED DRAWER 7, Y5N ONE (15:24)
[2017-10-27] MEDS: VANCOMYCIN 1 GM PREMIX - 1 GM/200 ML BAG IVPB SCH (15:30)
--- NOTE | 2017-10-27 17:44 | PN ---
Progress Note (short form) - Note Progress Note: In bed sitting uo\p no distress / redness and itching improved Vital Signs Period Temp Pulse Resp BP Sys/Rios Pulse Ox Last 24 Hr 97.8 F-98.3 F 63-72 20-22 108-130/47-72 97 neck supple heart S1/S2 Lungs clear bilat abd soft benign ext luli bandage bilat LE up to knees toes warm + pulses skin - less redness / (diffuse) CBC, BMP 10/27/17 06:15 10/27/17 06:15 Microbiology 10/23/17 22:16 Blood - Peripheral Venous Blood Culture - Preliminary NO GROWTH OBTAINED AFTER 72 HOURS, INCUBATION TO CONTINUE FOR 2 DAYS. 10/23/17 21:22 Blood - Peripheral Venous Blood Culture - Preliminary NO GROWTH OBTAINED AFTER 72 HOURS, INCUBATION TO CONTINUE FOR 2 DAYS. Active Medications Acetaminophen (Tylenol -) 650 mg PO Q4H PRN PRN Reason: PAIN LEVEL 1-5 Last Admin: 10/26/17 11:47 Dose: 650 mg Allopurinol (Zyloprim -) 100 mg PO DAILY [facility] Last Admin: 10/27/17 10:12 Dose: 100 mg Atenolol (Tenormin -) 50 mg PO DAILY [facility] Last Admin: 10/27/17 10:12 Dose: 50 mg Atorvastatin Calcium (Lipitor -) 20 mg PO HS [facility] Last Admin: 10/26/17 21:27 Dose: 20 mg Collagenase (Santyl -) 1 applic TP DAILY [facility] Last Admin: 10/27/17 10:14 Dose: 1 appful Diphenhydramine HCl (Benadryl -) 25 mg PO Q6H PRN PRN Reason: FOR ITCHING Last Admin: 10/26/17 20:16 Dose: 25 mg Cefepime HCl (Maxipime 1 Gm Premix Ivpb) 1 gm in 50 mls @ 100 mls/hr IVPB BID [facility] PRN Reason: Protocol Last Admin: 10/27/17 10:13 Dose: 100 mls/hr Lactic Acid (Lac-Hydrin 12) 1 applic TP BID PRN PRN Reason: WOUND CARE Last Admin: 10/27/17 10:13 Dose: 1 appful Spironolactone (Aldactone -) 25 mg PO DAILY [facility] Last Admin: 10/27/17 10:12 Dose: 25 mg # MDS Pancytopenia -- s/p transfusion upto 44K now to 35K no evidence of bleeding neutropenia -- reverse isolation severe anemia --- s/p transfusion 4 units hgb Heme/ onc appreciate follow up trend labs # non healing L foot ulcer ??osteomyelitis sed rate 102 will slow down IV Vanco to alleviate red man syndrome benadryl for itching # PVD culture pending / emperic tx for osteo wound care continue wound management per Dr Read Podiatry follow up MRI -scheduled for later today # CKD trend renal function Problem List - Problems (1) Anemia Code(s): D64.9 - ANEMIA, UNSPECIFIED (2) Foot ulcer Code(s): L97.509 - NON-PRESSURE CHRONIC ULCER OTH PRT UNSP FOOT W UNSP SEVERITY (3) Pancytopenia Code(s): D61.818 - OTHER PANCYTOPENIA (4) HLD (hyperlipidemia) Code(s): E78.5 - HYPERLIPIDEMIA, UNSPECIFIED (5) HTN (hypertension) Code(s): I10 - ESSENTIAL (PRIMARY) HYPERTENSION (6) Infected ulcer of skin Code(s): L98.499 - NON-PRESSURE CHRONIC ULCER OF SKIN OF SITES W UNSP SEVERITY; L08.9 - LOCAL INFECTION OF THE SKIN AND SUBCUTANEOUS TISSUE, UNSP (7) Ulcer of left foot Code(s): L97.529 - NON-PRESSURE CHRONIC ULCER OTH PRT LEFT FOOT W UNSP SEVERITY Qualifiers:
--- NOTE | 2017-10-27 19:59 | CONSULT ---
Consult - text type - Consultation Consultation Note: came to see patient . introduced myself as a utility system operator. Patient was very angry and asked me to leave. He said he would not see another doctor today and it was too late at 7pm. unable to evaluate him
[2017-10-27] MEDS: ATORVASTATIN CA 20 MG TABLET (FP) PO SCH (21:57)
[2017-10-28] MEDS: ATENOLOL 50 MG TABLET (FP) PO SCH (10:54)
[2017-10-28] MEDS: COLLAGENASE CLOSTRIDIUM HIST. 30 GRAMS TUBE TP SCH (10:55)
[2017-10-28] MEDS: CEFEPIME HCL/D5W 1 GM/50 ML BAG IVPB SCH ×2 (10:55→21:25)
[2017-10-28] MEDS: ALLOPURINOL 100 MG TABLET (FP) PO SCH (10:55)
[2017-10-28 10:56] LABS: HEMATOCRIT 26.4 % (35.4-49); HEMOGLOBIN 9.3 GM/dL (11.7-16.9); MCH 32.2 pg (25.7-33.7); MCHC 35.2 g/dl (32.0-35.9); MEAN CELL VOLUME 91.6 fl (80-96); MEAN PLT VOLUME 8.7 fl (7.5-11.1); RBC 2.88 M/mm3 (4.00-5.60); RDW 15.3 % (11.9-15.9)
[2017-10-28] MEDS: SPIRONOLACTONE 25 MG TABLET (FP) PO SCH (10:56)
[2017-10-28 11:20] LABS: PLATELET COUNT 26 K/MM3 (134-434)
[2017-10-28] MEDS: diphenhydrAMINE HCL 25 MG CAPSULE (FP) PO PRN (12:57)
[2017-10-28 13:23] LABS: PLATELET ESTIMATE DECREASED
[2017-10-28] MEDS: ATORVASTATIN CA 20 MG TABLET (FP) PO SCH (21:25)
--- NOTE | 2017-10-28 22:42 | PN ---
Progress Note (short form) - Note Progress Note: In bed declines examination feels "OK" Vital Signs Period Temp Pulse Resp BP Sys/Rios Pulse Ox Last 24 Hr 98.0 F-98.6 F 56-88 -18 115-130/50-78 neck supple heart S1/S2 Lungs clear bilat abd soft benign ext luli bandage bilat LE up to knees toes warm + pulses skin - less redness / (diffuse) CBC, BMP 10/28/17 10:35 10/27/17 06:15 CBC, BMP 10/27/17 06:15 10/27/17 06:15 Microbiology 10/23/17 22:16 Blood - Peripheral Venous Blood Culture - Final NO GROWTH AFTER 5 DAYS INCUBATION 10/23/17 21:22 Blood - Peripheral Venous Blood Culture - Final NO GROWTH AFTER 5 DAYS INCUBATION 10/27/17 10:30 Foot - Left Plantar Gram Stain - Final 10/27/17 10:30 Foot - Left Plantar Wound Culture - Preliminary Pending Organism Pending Organism#2 Pending Organism#3 Active Medications Acetaminophen (Tylenol -) 650 mg PO Q4H PRN PRN Reason: PAIN LEVEL 1-5 Last Admin: 10/26/17 11:47 Dose: 650 mg Allopurinol (Zyloprim -) 100 mg PO DAILY [facility] Last Admin: 10/28/17 10:55 Dose: 100 mg Atenolol (Tenormin -) 50 mg PO DAILY [facility] Last Admin: 10/28/17 10:54 Dose: 50 mg Atorvastatin Calcium (Lipitor -) 20 mg PO HS [facility] Last Admin: 10/28/17 21:25 Dose: 20 mg Collagenase (Santyl -) 1 applic TP DAILY [facility] Last Admin: 10/28/17 10:55 Dose: 1 appful Diphenhydramine HCl (Benadryl -) 25 mg PO Q6H PRN PRN Reason: FOR ITCHING Last Admin: 10/28/17 12:57 Dose: 25 mg Cefepime HCl (Maxipime 1 Gm Premix Ivpb) 1 gm in 50 mls @ 100 mls/hr IVPB BID ME[facility] PRN Reason: Protocol Last Admin: 10/28/17 21:25 Dose: 100 mls/hr Lactic Acid (Lac-Hydrin 12) 1 applic TP BID PRN PRN Reason: WOUND CARE Last Admin: 10/27/17 10:13 Dose: 1 appful Spironolactone (Aldactone -) 25 mg PO DAILY [facility] Last Admin: 10/28/17 10:56 Dose: 25 mg # MDS Pancytopenia -- s/p transfusion upto 44K continues dropping no evidence of bleeding neutropenia -- reverse isolation severe anemia --- s/p transfusion 4 units hgb Heme/ onc appreciate follow up trend labs # non healing L foot ulcer ??osteomyelitis sed rate 102 will slow down IV Vanco to alleviate red man syndrome benadryl for itching patient declined dermatology consult states he feels better - less itchy ( unable to examine skin) MRI - not definite , but findings may be consistent with osteo # PVD culture pending / emperic tx for osteo wound care continue wound management per Dr Read Podiatry follow up # CKD trend renal function Problem List - Problems (1) Anemia Code(s): D64.9 - ANEMIA, UNSPECIFIED (2) Foot ulcer Code(s): L97.509 - NON-PRESSURE CHRONIC ULCER OTH PRT UNSP FOOT W UNSP SEVERITY (3) Pancytopenia Code(s): D61.818 - OTHER PANCYTOPENIA (4) HLD (hyperlipidemia) Code(s): E78.5 - HYPERLIPIDEMIA, UNSPECIFIED (5) HTN (hypertension) Code(s): I10 - ESSENTIAL (PRIMARY) HYPERTENSION (6) Infected ulcer of skin Code(s): L98.499 - NON-PRESSURE CHRONIC ULCER OF SKIN OF SITES W UNSP SEVERITY; L08.9 - LOCAL INFECTION OF THE SKIN AND SUBCUTANEOUS TISSUE, UNSP (7) Ulcer of left foot Code(s): L97.529 - NON-PRESSURE CHRONIC ULCER OTH PRT LEFT FOOT W UNSP SEVERITY Qualifiers:
[2017-10-29 09:06] LABS: HEMATOCRIT 25.2 % (35.4-49); HEMOGLOBIN 8.9 GM/dL (11.7-16.9); MCH 32.2 pg (25.7-33.7); MCHC 35.2 g/dl (32.0-35.9); MEAN CELL VOLUME 91.4 fl (80-96); MEAN PLT VOLUME 9.4 fl (7.5-11.1); RBC 2.76 M/mm3 (4.00-5.60)
[2017-10-29 09:18] LABS: PLATELET COUNT 22 K/MM3 (134-434); WHITE BLOOD COUNT 1.2 K/mm3 (4.0-10.0)
--- NOTE | 2017-10-29 09:19 | PN ---
Progress Note (short form) - Note Progress Note: pt seen and examined. note from 10/28/2017 Detailed discussion with the daughter over the phone. did not get a call from outside oncologist yet able to obtain an alternate phone number, will try calling. MRI done. Pt says he is tired O/E: Temp Pulse Resp BP Pulse Ox 98.6 F 57 L 20 116/52 99 10/27/17 10:00 10/27/17 10:00 10/27/17 10:00 10/27/17 10:00 10/27/17 09:00 CBC, BMP 10/27/17 06:15 10/27/17 06:15 Current Medications Generic Name Dose Route Start Last Admin Trade Name Freq PRN Reason Stop Dose Admin Acetaminophen 650 mg 10/24/17 05:32 10/26/17 11:47 Tylenol - PO 650 mg Q4H PRN Administration PAIN LEVEL 1-5 Allopurinol 100 mg 10/25/17 10:00 10/27/17 10:12 Zyloprim - PO 100 mg DAILY [facility] Administration Atenolol 50 mg 10/25/17 10:00 10/27/17 10:12 Tenormin - PO 50 mg DAILY ME[facility] Administration Atorvastatin Calcium 20 mg 10/24/17 22:00 10/26/17 21:27 Lipitor - PO 20 mg HS MEETA Administration Collagenase 1 applic 10/26/17 10:00 10/27/17 10:14 Santyl - TP 1 appful DAILY ME[facility] Administration Diphenhydramine HCl 25 mg 10/26/17 10:55 10/26/17 20:16 Benadryl - PO 25 mg Q6H PRN Administration FOR ITCHING Cefepime HCl 1 gm in 50 mls @ 100 mls/hr 10/24/17 22:00 10/27/17 10:13 Maxipime 1 Gm Premix Ivpb IVPB 100 mls/hr BID MEETA Administration Protocol Vancomycin HCl 1 gm in 200 mls @ 80 mls/hr 10/26/17 16:00 10/26/17 15:33 Vancomycin 1 Gm Premix - IVPB 80 mls/hr DAILY@1600 ME[facility]A Administration Protocol Lactic Acid 1 applic 10/26/17 09:41 10/27/17 10:13 Lac-Hydrin 12 TP 1 appful BID PRN Administration WOUND CARE Spironolactone 25 mg 10/24/17 10:45 10/27/17 10:12 Aldactone - PO 25 mg DAILY [facility] Administration MDS: regular transfusion thresholds daily monitoring cbc today OK have an alternate number for his oncologist, will call that number await flow--concern for progression Cellulitis, r/o osteomyelitis MRI reviewed f/u with ID/podiatry skin rash---derm consult noted. reportedly better after changing abx mk ENG
[2017-10-29 09:22] LABS: ALBUMIN 3.1 g/dl (3.4-5.0); ANION GAP 7 (8-16); BILIRUBIN,TOTAL 0.9 mg/dL (0.2-1.0); BLOOD UREA NITROGEN 27 mg/dL (7-18); CALCIUM 8.4 mg/dL (8.5-10.1); CHLORIDE 109 mmol/L (98-107); CO2 24 mmol/L (21-32); CREATININE 1.2 mg/dL (0.7-1.3); GLUCOSE,RANDOM 92 mg/dL (74-106); LDH 189 U/L (87-241); POTASSIUM 4.1 mmol/L (3.5-5.1); SGOT/AST 15 U/L (15-37); SGPT/ALT 24 U/L (12-78); SODIUM 140 mmol/L (136-145); URIC ACID 4.6 mg/dL (2.6-7.2)
[2017-10-29 09:23] LABS: ALK PHOS 105 U/L (45-117)
[2017-10-29 10:16] LABS: PLATELET ESTIMATE DECREASED
[2017-10-29] MEDS ORDERED: PT OWN MED DRAWER 7, Y5N ONE (10:29)
--- NOTE | 2017-10-29 10:35 | PN ---
Progress Note (short form) - Note Progress Note: pt seen and examined AFVSS Cor: RSR, No murmurs, No gallops Lungs: Clear to P&A Abd: Soft, Normal bowel sounds, No organomegaly Ext:No significant edema much improved erythematous skin rash Last Vital Signs Temp Pulse Resp BP Pulse Ox 97.6 F 58 L 20 126/68 97 10/29/17 07:28 10/29/17 07:28 10/29/17 07:28 10/29/17 07:28 10/28/17 21:00 CBC, BMP 10/29/17 08:20 10/29/17 08:20 Current Medications Generic Name Dose Route Start Last Admin Trade Name Freq PRN Reason Stop Dose Admin Acetaminophen 650 mg 10/24/17 05:32 10/26/17 11:47 Tylenol - PO 650 mg Q4H PRN Administration PAIN LEVEL 1-5 Allopurinol 100 mg 10/25/17 10:00 10/28/17 10:55 Zyloprim - PO 100 mg DAILY [facility] Administration Atenolol 50 mg 10/25/17 10:00 10/28/17 10:54 Tenormin - PO 50 mg DAILY [facility] Administration Atorvastatin Calcium 20 mg 10/24/17 22:00 10/28/17 21:25 Lipitor - PO 20 mg HS [facility] Administration Collagenase 1 applic 10/26/17 10:00 10/28/17 10:55 Santyl - TP 1 appful DAILY [facility] Administration Diphenhydramine HCl 25 mg 10/26/17 10:55 10/28/17 12:57 Benadryl - PO 25 mg Q6H PRN Administration FOR ITCHING Cefepime HCl 1 gm in 50 mls @ 100 mls/hr 10/24/17 22:00 10/28/17 21:25 Maxipime 1 Gm Premix Ivpb IVPB 100 mls/hr BID MEETA Administration Protocol Lactic Acid 1 applic 10/26/17 09:41 10/27/17 10:13 Lac-Hydrin 12 TP 1 appful BID PRN Administration WOUND CARE Spironolactone 25 mg 10/24/17 10:45 10/28/17 10:56 Aldactone - PO 25 mg DAILY [facility] Administration 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 d/w today, agreed for pal care. ID fu. if no abx, will need to place him on OI ppx. rash- much better now d/w daughter in detail over the phone about the present situation, overall GOC to be thought over. she would like to discuss with and get back to us.
[2017-10-29] MEDS: ALLOPURINOL 100 MG TABLET (FP) PO SCH (10:46)
[2017-10-29] MEDS: SPIRONOLACTONE 25 MG TABLET (FP) PO SCH (10:46)
[2017-10-29] MEDS: ATENOLOL 50 MG TABLET (FP) PO SCH (10:47)
[2017-10-29] MEDS: CEFEPIME HCL/D5W 1 GM/50 ML BAG IVPB SCH ×2 (10:47→21:47)
[2017-10-29] MEDS: COLLAGENASE CLOSTRIDIUM HIST. 30 GRAMS TUBE TP SCH (10:49)
--- NOTE | 2017-10-29 10:52 | PN ---
Progress Note (short form) - Note Progress Note: 86 y/o male found eating. States pain is 4/10 in left ft. Vital Signs Period Temp Pulse Resp BP Sys/Rios Pulse Ox Last 24 Hr 97.6 F-98.4 F 58-88 18-20 101-126/42-78 97 CBC, BMP 10/29/17 08:20 10/29/17 08:20 HEENT- NL Neck- supple Lungs- CTAB Heart-S1/S2 Abd- Pos BS x 4, soft, NT Ext- No LE edema Active Medications Acetaminophen (Tylenol -) 650 mg PO Q4H PRN PRN Reason: PAIN LEVEL 1-5 Last Admin: 10/26/17 11:47 Dose: 650 mg Allopurinol (Zyloprim -) 100 mg PO DAILY [facility] Last Admin: 10/29/17 10:46 Dose: 100 mg Atenolol (Tenormin -) 50 mg PO DAILY [facility] Last Admin: 10/29/17 10:47 Dose: 50 mg Atorvastatin Calcium (Lipitor -) 20 mg PO HS [facility] Last Admin: 10/28/17 21:25 Dose: 20 mg Collagenase (Santyl -) 1 applic TP DAILY [facility] Last Admin: 10/29/17 10:49 Dose: 1 appful Diphenhydramine HCl (Benadryl -) 25 mg PO Q6H PRN PRN Reason: FOR ITCHING Last Admin: 10/28/17 12:57 Dose: 25 mg Cefepime HCl (Maxipime 1 Gm Premix Ivpb) 1 gm in 50 mls @ 100 mls/hr IVPB BID [facility] PRN Reason: Protocol Last Admin: 10/29/17 10:47 Dose: 100 mls/hr Lactic Acid (Lac-Hydrin 12) 1 applic TP BID PRN PRN Reason: WOUND CARE Last Admin: 10/27/17 10:13 Dose: 1 appful Spironolactone (Aldactone -) 25 mg PO DAILY [facility] Last Admin: 10/29/17 10:46 Dose: 25 mg # MDS Pancytopenia- Hgb improving PLt ct decreasing - plts to be replaced today # non healing L foot ulcer ??osteomyelitis-not definitive per MRI IV Vanco dc'd due to red man syndrome- Cont Benadryl PRN Continue IV Cefepime Tylenol PRN for pain WBC ct low but better than yest ID to follow # PVD culture- no growth noted Cont Collagenase daily for wound care continue wound management per Dr Read # CKD renal function improving Problem List - Problems (1) Anemia Code(s): D64.9 - ANEMIA, UNSPECIFIED (2) Foot ulcer Code(s): L97.509 - NON-PRESSURE CHRONIC ULCER OTH PRT UNSP FOOT W UNSP SEVERITY (3) Pancytopenia Code(s): D61.818 - OTHER PANCYTOPENIA (4) HLD (hyperlipidemia) Code(s): E78.5 - HYPERLIPIDEMIA, UNSPECIFIED (5) HTN (hypertension) Code(s): I10 - ESSENTIAL (PRIMARY) HYPERTENSION (6) Infected ulcer of skin Code(s): L98.499 - NON-PRESSURE CHRONIC ULCER OF SKIN OF SITES W UNSP SEVERITY; L08.9 - LOCAL INFECTION OF THE SKIN AND SUBCUTANEOUS TISSUE, UNSP (7) Ulcer of left foot Code(s): L97.529 - NON-PRESSURE CHRONIC ULCER OTH PRT LEFT FOOT W UNSP SEVERITY Qualifiers:
--- NOTE | 2017-10-29 16:50 | PATH ---
Surgical Pathology Report Patient Name: SAMM PALOMO [facility]. Rec. #: [id number] /Age/Gender: 1930 (Age: 86) / M Account: [id number] Location: [facility] MED/SURG Taken: 10/27/2017 Received: 10/27/2017 Reported: 10/29/2017 Physicians: Victoria Webb M.D. Specimen(s) Received PERIPHERAL BLOOD 2 [facility] Clinical History None Provided Final Diagnosis COMPREHENSIVE FLOW PANEL performed and interpreted at [place], [place] ([id number]) shows the following: INTERPRETATION: The CD34+ myeloblasts are 14% of total events, see comment. Left shifted granulocytes. There is no evidence of B or T-cell proliferative disorders. COMMENT: The findings are consistent with peripheral blood involvement by a myeloid neoplasm, such as high-grade myelodysplasia (MDS) or acute myeloid leukemia (AML). Correlation with complete bone marrow evaluation *including flow cytometry immunophenotyping and cytogenetic studies is suggested. See [facility] report ([id number]) for additional details. MYELODYSPLASIA FISH PANEL performed and interpreted at [place], [place] ([id number]) shows the following: INTERPRETATION: Deletion 5q (5q-) is present. Deletion of 20q12 is present. Multiple copies of the terminal region of 20q. One copy of 13q14 and 13q34 One copy of p53 (17p13) and NF1 (17q11.2) No evidence of deletion 7q or monosomy 7 is present. No evidence of trisomy 8 (+8) is present. No evidence of rearrangement of 11q23. See [facility] report ([id number]) for additional details. The results were discussed with Dr. Victoria eWbb by Dr. Cheema on October 29, 2017. Electronically Signed Ruma Banuelos M.D. Addendum Reported: 11/10/2017 Addendum Diagnosis CYTOGENETIC KARYOTYPE ANALYSIS performed and interpreted at [facility] ([id number]) shows the following: RESULTS: 45,XY,-3,gaston(4)add(4)(p11.2)add(4)(q35),del(5)(q13q33),add(11)(p15),add(12)(q13) ,-13,-17,-50,+3mar[15] INTERPRETATION: ABNORMAL KARYOTYPE complex abnormalities consistent with a high-grade MDS or AML Only fifteen metaphase cells were available for analysis from this peripheral blood sample. All fifteen cells exhibited the following numerical and structural abnormalities: -loss of one copy each of whole chromosomes 3, 13, 17 and 20, -a derivative chromosome 4, with unidentified chromatin added to, and replacing, the entire short arm and distal long arm, -an interstitial deletion on the long arm of one chromosome 5, -unidentified chromatin added to the distal short arm of one chromosome 11 and to the long arm of one chromosome 12 distal to band 12q13, -three small marker chromosomes, presumably containing the multiple copies of the long arm of chromosome 20 that was detected by FISH. No normal cells were observed. 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 Please correlate with clinical presentation and other diagnostic modalities. Analysis was performed on cells form unstimulated tissue cultures. See [facility] report for additional details ([id number]) Ruma Banuelos M.D.
[2017-10-29] MEDS: ATORVASTATIN CA 20 MG TABLET (FP) PO SCH (21:47)
[2017-10-30 08:59] LABS: HEMATOCRIT 25.5 % (35.4-49); MCHC 35.1 g/dl (32.0-35.9); MEAN CELL VOLUME 91.1 fl (80-96); MEAN PLT VOLUME 8.5 fl (7.5-11.1); RDW 14.3 % (11.9-15.9)
[2017-10-30 09:08] LABS: PLATELET COUNT 28 K/MM3 (134-434); WHITE BLOOD COUNT 1.5 K/mm3 (4.0-10.0)
[2017-10-30 09:27] LABS: ALBUMIN 3.1 g/dl (3.4-5.0); ANION GAP 6 (8-16); BLOOD UREA NITROGEN 26 mg/dL (7-18); CALCIUM 8.6 mg/dL (8.5-10.1); CHLORIDE 108 mmol/L (98-107); CO2 25 mmol/L (21-32); CREATININE 1.1 mg/dL (0.7-1.3); GLUCOSE,RANDOM 92 mg/dL (74-106); SGOT/AST 13 U/L (15-37); SGPT/ALT 22 U/L (12-78); SODIUM 139 mmol/L (136-145)
[2017-10-30 09:31] LABS: ALK PHOS 101 U/L (45-117); BILIRUBIN,TOTAL 0.9 mg/dL (0.2-1.0); TOT PROT 6.8 g/dl (6.4-8.2)
--- NOTE | 2017-10-30 10:06 | PN ---
Progress Note (short form) - Note Progress Note: 86 y/o male found eating breakfast. Annoyed that people come to talk to him while eating. 2 bites of eggs remaining. Pt went on to ask if it is professional to have gauze on hand and you can see blood on gauze.. No c/o of pain. Vital Signs Period Temp Pulse Resp BP Sys/Rios Pulse Ox Last 24 Hr 98.2 F-98.4 F 47-82 18-20 104-131/46-73 96 CBC, BMP 10/30/17 07:45 10/30/17 07:45 HEENT- Normocephalic Neck- Supple Lungs- CTAB Heart- S1/S2 Abd- Pos BS x 4, soft, Nt Ext- No LE edema. Dsg in place on LT Le Active Medications Acetaminophen (Tylenol -) 650 mg PO Q4H PRN PRN Reason: PAIN LEVEL 1-5 Last Admin: 10/26/17 11:47 Dose: 650 mg Allopurinol (Zyloprim -) 100 mg PO DAILY [facility] Last Admin: 10/29/17 10:46 Dose: 100 mg Atenolol (Tenormin -) 50 mg PO DAILY [facility] Last Admin: 10/29/17 10:47 Dose: 50 mg Atorvastatin Calcium (Lipitor -) 20 mg PO HS [facility] Last Admin: 10/29/17 21:47 Dose: 20 mg Collagenase (Santyl -) 1 applic TP DAILY [facility] Last Admin: 10/29/17 10:49 Dose: 1 appful Diphenhydramine HCl (Benadryl -) 25 mg PO Q6H PRN PRN Reason: FOR ITCHING Last Admin: 10/28/17 12:57 Dose: 25 mg Cefepime HCl (Maxipime 1 Gm Premix Ivpb) 1 gm in 50 mls @ 100 mls/hr IVPB BID MEETA PRN Reason: Protocol Last Admin: 10/29/17 21:47 Dose: 100 mls/hr Lactic Acid (Lac-Hydrin 12) 1 applic TP BID PRN PRN Reason: WOUND CARE Last Admin: 10/27/17 10:13 Dose: 1 appful Spironolactone (Aldactone -) 25 mg PO DAILY [facility] Last Admin: 10/29/17 10:46 Dose: 25 mg # MDS Pancytopenia- Hgb increased to 9 Received PLts yest- plt ct increased to 28 # non healing L foot ulcer ??osteomyelitis-not definitive per MRI Continue IV Cefepime Wd culture presumptive of MRSA ID to follow # PVD Cont Collagenase daily for wound care continue wound management per Dr Read # CKD trend renal- function improving Problem List - Problems (1) Anemia Code(s): D64.9 - ANEMIA, UNSPECIFIED (2) Foot ulcer Code(s): L97.509 - NON-PRESSURE CHRONIC ULCER OTH PRT UNSP FOOT W UNSP SEVERITY (3) Pancytopenia Code(s): D61.818 - OTHER PANCYTOPENIA (4) HLD (hyperlipidemia) Code(s): E78.5 - HYPERLIPIDEMIA, UNSPECIFIED (5) HTN (hypertension) Code(s): I10 - ESSENTIAL (PRIMARY) HYPERTENSION (6) Infected ulcer of skin Code(s): L98.499 - NON-PRESSURE CHRONIC ULCER OF SKIN OF SITES W UNSP SEVERITY; L08.9 - LOCAL INFECTION OF THE SKIN AND SUBCUTANEOUS TISSUE, UNSP (7) Ulcer of left foot Code(s): L97.529 - NON-PRESSURE CHRONIC ULCER OTH PRT LEFT FOOT W UNSP SEVERITY Qualifiers:
[2017-10-30] MEDS: SPIRONOLACTONE 25 MG TABLET (FP) PO SCH (10:56)
[2017-10-30] MEDS: ALLOPURINOL 100 MG TABLET (FP) PO SCH (10:56)
[2017-10-30] MEDS: ATENOLOL 50 MG TABLET (FP) PO SCH (10:57)
[2017-10-30] MEDS: CEFEPIME HCL/D5W 1 GM/50 ML BAG IVPB SCH ×2 (10:57→12:44)
[2017-10-30] MEDS: COLLAGENASE CLOSTRIDIUM HIST. 30 GRAMS TUBE TP SCH (10:57)
[2017-10-30] MEDS: AMMONIUM LACTATE 12% LOTION 225 GM BOTTLE TP PRN (10:57)
[2017-10-30 11:16] LABS: ANISOCYTOSIS 1+; MACROCYTOSIS 1+; PLATELET ESTIMATE DECREASED
[2017-10-30 12:48] LABS: LDH 191 U/L (87-241); URIC ACID 4.2 mg/dL (2.6-7.2)
--- NOTE | 2017-10-30 16:35 | PN ---
Progress Note (short form) - Note Progress Note: pt seen and examined asked me to talk to his daughter for anything. because he doesn't want to talk too many doctors. AFVSS Cor: RSR, No murmurs, No gallops Lungs: Clear to P&A Abd: Soft, Normal bowel sounds, No organomegaly Ext:No significant edema much improved erythematous skin rash Last Vital Signs Temp Pulse Resp BP Pulse Ox 98.2 F 62 16 132/57 96 10/30/17 15:58 10/30/17 15:58 10/30/17 15:58 10/30/17 15:58 10/30/17 09:00 CBC, BMP 10/30/17 07:45 10/30/17 07:45 Current Medications Generic Name Dose Route Start Last Admin Trade Name Freq PRN Reason Stop Dose Admin Acetaminophen 650 mg 10/24/17 05:32 10/26/17 11:47 Tylenol - PO 650 mg Q4H PRN Administration PAIN LEVEL 1-5 Allopurinol 100 mg 10/25/17 10:00 10/30/17 10:56 Zyloprim - PO 100 mg DAILY [facility] Administration Atenolol 50 mg 10/25/17 10:00 10/30/17 10:57 Tenormin - PO 50 mg DAILY [facility] Administration Atorvastatin Calcium 20 mg 10/24/17 22:00 10/29/17 21:47 Lipitor - PO 20 mg HS [facility]A Administration Collagenase 1 applic 10/26/17 10:00 10/30/17 10:57 Santyl - TP 1 appful DAILY [facility] Administration Diphenhydramine HCl 25 mg 10/26/17 10:55 10/28/17 12:57 Benadryl - PO 25 mg Q6H PRN Administration FOR ITCHING Cefepime HCl 1 gm in 50 mls @ 100 mls/hr 10/24/17 22:00 10/30/17 12:44 Maxipime 1 Gm Premix Ivpb IVPB 100 mls/hr BID MEETA Administration Protocol Lactic Acid 1 applic 10/26/17 09:41 10/30/17 10:57 Lac-Hydrin 12 TP 1 appful BID PRN Administration WOUND CARE Spironolactone 25 mg 10/24/17 10:45 10/30/17 10:56 Aldactone - PO 25 mg DAILY [facility] Administration 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 if no abx, will need to place him on OI ppx. rash- much better now d/w daughter in detail over the phone again today, she would talk to his dad along with her brother over the weekend about pal care. to consult today. Appreciate c/s.
[2017-10-30] MEDS: DAPTOMYCIN 320 MG in SODIUM CHLORIDE 50 ML IVPB SCH (21:26)
[2017-10-30] MEDS: ATORVASTATIN CA 20 MG TABLET (FP) PO SCH (21:27)
[2017-10-30] MEDS: diphenhydrAMINE HCL 25 MG CAPSULE (FP) PO PRN (23:58)
[2017-10-30] MEDS: ACETAMINOPHEN 325 MG TABLET (FP) PO PRN (23:58)
[2017-10-31 08:02] LABS: HEMATOCRIT 23.1 % (35.4-49); HEMOGLOBIN 8.2 GM/dL (11.7-16.9); MCH 32.1 pg (25.7-33.7); MCHC 35.5 g/dl (32.0-35.9); MEAN CELL VOLUME 90.6 fl (80-96); MEAN PLT VOLUME 8.3 fl (7.5-11.1); RBC 2.55 M/mm3 (4.00-5.60); RDW 14.3 % (11.9-15.9)
[2017-10-31 08:14] LABS: WHITE BLOOD COUNT 1.5 K/mm3 (4.0-10.0)
[2017-10-31 08:15] LABS: PLATELET COUNT 19 K/MM3 (134-434)
[2017-10-31 08:40] LABS: ALBUMIN 3.2 g/dl (3.4-5.0); ALK PHOS 100 U/L (45-117); ANION GAP 9 (8-16); BILIRUBIN,TOTAL 0.8 mg/dL (0.2-1.0); BLOOD UREA NITROGEN 27 mg/dL (7-18); CALCIUM 8.5 mg/dL (8.5-10.1); CHLORIDE 106 mmol/L (98-107); CO2 25 mmol/L (21-32); CREATININE 1.2 mg/dL (0.7-1.3); GLUCOSE,RANDOM 98 mg/dL (74-106); LDH 151 U/L (87-241); POTASSIUM 3.9 mmol/L (3.5-5.1); SGOT/AST 13 U/L (15-37); SGPT/ALT 19 U/L (12-78); SODIUM 140 mmol/L (136-145); TOT PROT 6.7 g/dl (6.4-8.2); URIC ACID 4.5 mg/dL (2.6-7.2)
[2017-10-31] MEDS: ALLOPURINOL 100 MG TABLET (FP) PO SCH (11:15)
[2017-10-31] MEDS: SPIRONOLACTONE 25 MG TABLET (FP) PO SCH (11:16)
[2017-10-31] MEDS: ATENOLOL 50 MG TABLET (FP) PO SCH (11:16)
--- NOTE | 2017-10-31 12:36 | PN ---
Progress Note (short form) - Note Progress Note: pt seen and examined talked to him and his daughter together no bleeding explained platelet targets and Hb targets advised fall precautions Vital Signs Period Temp Pulse Resp BP Sys/Rios Pulse Ox Last 24 Hr 97.8 F-98.2 F 55-62 16-20 107-132/44-57 AFVSS much improved erythematous skin rash CBC, BMP 10/31/17 06:15 10/31/17 06:15 Active Medications Generic Name Dose Route Start Last Admin Trade Name Freq PRN Reason Stop Dose Admin Acetaminophen 650 mg 10/24/17 05:32 10/30/17 23:58 Tylenol - PO 650 mg Q4H PRN Administration PAIN LEVEL 1-5 Allopurinol 100 mg 10/25/17 10:00 10/31/17 11:15 Zyloprim - PO 100 mg DAILY [facility] Administration Atenolol 50 mg 10/25/17 10:00 10/31/17 11:16 Tenormin - PO 50 mg DAILY [facility] Administration Atorvastatin Calcium 20 mg 10/24/17 22:00 10/30/17 21:27 Lipitor - PO 20 mg HS [facility] Administration Collagenase 1 applic 10/26/17 10:00 10/30/17 10:57 Santyl - TP 1 appful DAILY [facility] Administration Diphenhydramine HCl 25 mg 10/26/17 10:55 10/30/17 23:58 Benadryl - PO 25 mg Q6H PRN Administration FOR ITCHING Daptomycin 320 mg/ Sodium 50 mls @ 50 mls/hr 10/30/17 19:00 10/30/17 21:26 Chloride IVPB 50 mls/hr DAILY [facility] Administration Protocol Lactic Acid 1 applic 10/26/17 09:41 10/30/17 10:57 Lac-Hydrin 12 TP 1 appful BID PRN Administration WOUND CARE Spironolactone 25 mg 10/24/17 10:45 10/31/17 11:16 Aldactone - PO 25 mg DAILY [facility] Administration 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 Platelet target greater than 10 -15 Already received 1 unit today - No further transfusions (due to risk of alloimmunisation) If bleeding transfuse platelets Hb target <7 then transfuse
[2017-10-31 13:37] LABS: PLATELET ESTIMATE DECREASED
--- NOTE | 2017-10-31 13:38 | PN ---
Progress Note (short form) - Note Progress Note: Patient seen today sister in room with him. vss Tmax 97.8 cannot rule out OM on MRI, r/o om Continue santyl to left foot. Antibotic changed. Will follow. Spoke with his sister to get the orhowedge shoe to him in hospital.
[2017-10-31] MEDS: DAPTOMYCIN 320 MG in SODIUM CHLORIDE 50 ML IVPB SCH (15:03)
[2017-10-31] MEDS: COLLAGENASE CLOSTRIDIUM HIST. 30 GRAMS TUBE TP SCH (15:06)
--- NOTE | 2017-10-31 18:22 | PN ---
Progress Note (short form) - Note Progress Note: events of last few days reviewed daughter informed of updates by heme onc palliative care onboard Vital Signs Period Temp Pulse Resp BP Sys/Rios Pulse Ox Last 24 Hr 97.8 F-98.1 F 55-57 20-20 107-118/44-50 96 neck supple heart S1/S2 Lungs clear bilat abd soft benign ext luli bandage bilat LE up to knees toes warm + pulses skin - less redness / (diffuse) CBC, BMP 10/31/17 06:15 10/31/17 06:15 Microbiology 10/27/17 10:30 Foot - Left Plantar Gram Stain - Final 10/27/17 10:30 Foot - Left Plantar Wound Culture - Final Mr S Aureus Vr Ec Faecalis Diphtheroid/Corynebacterium 10/23/17 22:16 Blood - Peripheral Venous Blood Culture - Final NO GROWTH AFTER 5 DAYS INCUBATION 10/23/17 21:22 Blood - Peripheral Venous Blood Culture - Final NO GROWTH AFTER 5 DAYS INCUBATION Active Medications Acetaminophen (Tylenol -) 650 mg PO Q4H PRN PRN Reason: PAIN LEVEL 1-5 Last Admin: 10/30/17 23:58 Dose: 650 mg Allopurinol (Zyloprim -) 100 mg PO DAILY [facility] Last Admin: 10/31/17 11:15 Dose: 100 mg Atenolol (Tenormin -) 50 mg PO DAILY [facility] Last Admin: 10/31/17 11:16 Dose: 50 mg Atorvastatin Calcium (Lipitor -) 20 mg PO HS [facility] Last Admin: 10/30/17 21:27 Dose: 20 mg Collagenase (Santyl -) 1 applic TP DAILY [facility] Last Admin: 10/31/17 15:06 Dose: 1 appful Diphenhydramine HCl (Benadryl -) 25 mg PO Q6H PRN PRN Reason: FOR ITCHING Last Admin: 10/30/17 23:58 Dose: 25 mg Daptomycin 320 mg/ Sodium (Chloride) 50 mls @ 50 mls/hr IVPB DAILY [facility] PRN Reason: Protocol Last Admin: 10/31/17 15:03 Dose: 50 mls/hr Lactic Acid (Lac-Hydrin 12) 1 applic TP BID PRN PRN Reason: WOUND CARE Last Admin: 10/30/17 10:57 Dose: 1 appful Spironolactone (Aldactone -) 25 mg PO DAILY [facility] Last Admin: 10/31/17 11:16 Dose: 25 mg # MDS ---- 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 Pancytopenia -- transfuse as needed Heme/ onc appreciate follow up palliative care trend labs # non healing L foot ulcer MRI - not definite , but findings may be consistent with osteo ABX and extent per ID # PVD wound care continue wound management per Dr Read Podiatry follow up # CKD trend renal function Problem List - Problems (1) Anemia Code(s): D64.9 - ANEMIA, UNSPECIFIED (2) Foot ulcer Code(s): L97.509 - NON-PRESSURE CHRONIC ULCER OTH PRT UNSP FOOT W UNSP SEVERITY (3) Pancytopenia Code(s): D61.818 - OTHER PANCYTOPENIA (4) HLD (hyperlipidemia) Code(s): E78.5 - HYPERLIPIDEMIA, UNSPECIFIED (5) HTN (hypertension) Code(s): I10 - ESSENTIAL (PRIMARY) HYPERTENSION (6) Infected ulcer of skin Code(s): L98.499 - NON-PRESSURE CHRONIC ULCER OF SKIN OF SITES W UNSP SEVERITY; L08.9 - LOCAL INFECTION OF THE SKIN AND SUBCUTANEOUS TISSUE, UNSP (7) Ulcer of left foot Code(s): L97.529 - NON-PRESSURE CHRONIC ULCER OTH PRT LEFT FOOT W UNSP SEVERITY Qualifiers:
[2017-10-31] MEDS: ATORVASTATIN CA 20 MG TABLET (FP) PO SCH (21:59)
[2017-11-01 07:55] LABS: HEMATOCRIT 22.8 % (35.4-49); MCH 32.1 pg (25.7-33.7); MCHC 35.2 g/dl (32.0-35.9); MEAN CELL VOLUME 91.1 fl (80-96); MEAN PLT VOLUME 8.5 fl (7.5-11.1); RBC 2.51 M/mm3 (4.00-5.60); RDW 14.6 % (11.9-15.9)
[2017-11-01 07:59] LABS: PLATELET COUNT 14 K/MM3 (134-434); WHITE BLOOD COUNT 1.6 K/mm3 (4.0-10.0)
[2017-11-01 08:47] LABS: ANION GAP 7 (8-16); BLOOD UREA NITROGEN 27 mg/dL (7-18); CALCIUM 8.6 mg/dL (8.5-10.1); CHLORIDE 109 mmol/L (98-107); CO2 26 mmol/L (21-32); GLUCOSE,RANDOM 91 mg/dL (74-106); MAGNESIUM 2.1 mg/dL (1.8-2.4); SODIUM 142 mmol/L (136-145)
[2017-11-01 08:49] LABS: CREATININE 1.2 mg/dL (0.7-1.3)
[2017-11-01 09:19] LABS: ANISOCYTOSIS 0; PLATELET ESTIMATE DECREASED
[2017-11-01] MEDS ORDERED: PT OWN MED DRAWER 7, Y5N ONE (10:02)
[2017-11-01] MEDS: ATENOLOL 50 MG TABLET (FP) PO SCH (10:13)
[2017-11-01] MEDS: SPIRONOLACTONE 25 MG TABLET (FP) PO SCH (10:14)
[2017-11-01] MEDS: ALLOPURINOL 100 MG TABLET (FP) PO SCH (10:14)
[2017-11-01] MEDS: DAPTOMYCIN 320 MG in SODIUM CHLORIDE 50 ML IVPB SCH (10:41)
--- NOTE | 2017-11-01 10:50 | PN ---
Progress Note (short form) - Note Progress Note: pt seen and examined talked to him and his daughter together yesterday no bleeding explained platelet targets and Hb targets advised fall precautions Vital Signs Period Temp Pulse Resp BP Sys/Rios Pulse Ox Last 24 Hr 97.8 F-98.0 F 52-55 18-18 125-128/52-56 96 AFVSS much improved erythematous skin rash CBC, BMP 11/01/17 07:00 11/01/17 07:00 Current Medications Generic Name Dose Route Start Last Admin Trade Name Freq PRN Reason Stop Dose Admin Acetaminophen 650 mg 10/24/17 05:32 10/30/17 23:58 Tylenol - PO 650 mg Q4H PRN Administration PAIN LEVEL 1-5 Allopurinol 100 mg 10/25/17 10:00 11/01/17 10:14 Zyloprim - PO 100 mg DAILY [facility] Administration Atenolol 50 mg 10/25/17 10:00 11/01/17 10:13 Tenormin - PO 50 mg DAILY [facility] Administration Atorvastatin Calcium 20 mg 10/24/17 22:00 10/31/17 21:59 Lipitor - PO 20 mg HS [facility] Administration Collagenase 1 applic 10/26/17 10:00 10/31/17 15:06 Santyl - TP 1 appful DAILY [facility] Administration Diphenhydramine HCl 25 mg 10/26/17 10:55 10/30/17 23:58 Benadryl - PO 25 mg Q6H PRN Administration FOR ITCHING Daptomycin 320 mg/ Sodium 50 mls @ 50 mls/hr 10/30/17 19:00 11/01/17 10:41 Chloride IVPB 50 mls/hr DAILY [facility] Administration Protocol Lactic Acid 1 applic 10/26/17 09:41 10/30/17 10:57 Lac-Hydrin 12 TP 1 appful BID PRN Administration WOUND CARE Spironolactone 25 mg 10/24/17 10:45 11/01/17 10:14 Aldactone - PO 25 mg DAILY [facility] Administration 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 [facility] . Platelet target greater than 10 -15 Transfuse 1 unit platelets today Fall precautions If bleeding transfuse platelets Hb target <7 then transfuse
--- NOTE | 2017-11-01 11:22 | PN ---
Progress Note (short form) - Note Progress Note: sitting in chair / comfortable explained to me the progression of his disease his plans to be transferred to [facility] for penitentiary care also aware he will be receiving platelets today Vital Signs Period Temp Pulse Resp BP Sys/Rios Pulse Ox Last 24 Hr 97.8 F-98.0 F 52-55 18-18 125-128/52-56 96 neck supple heart S1/S2 Lungs clear bilat abd soft benign ext luli bandage bilat LE up to knees toes warm + pulses skin - less redness / (diffuse) CBC, BMP 11/01/17 07:00 11/01/17 07:00 Microbiology 10/27/17 10:30 Foot - Left Plantar Gram Stain - Final 10/27/17 10:30 Foot - Left Plantar Wound Culture - Final Mr S Aureus Vr Ec Faecalis Diphtheroid/Corynebacterium 10/23/17 22:16 Blood - Peripheral Venous Blood Culture - Final NO GROWTH AFTER 5 DAYS INCUBATION 10/23/17 21:22 Blood - Peripheral Venous Blood Culture - Final NO GROWTH AFTER 5 DAYS INCUBATION Active Medications Acetaminophen (Tylenol -) 650 mg PO Q4H PRN PRN Reason: PAIN LEVEL 1-5 Last Admin: 10/30/17 23:58 Dose: 650 mg Allopurinol (Zyloprim -) 100 mg PO DAILY [facility] Last Admin: 11/01/17 10:14 Dose: 100 mg Atenolol (Tenormin -) 50 mg PO DAILY [facility] Last Admin: 11/01/17 10:13 Dose: 50 mg Atorvastatin Calcium (Lipitor -) 20 mg PO HS [facility] Last Admin: 10/31/17 21:59 Dose: 20 mg Collagenase (Santyl -) 1 applic TP DAILY [facility] Last Admin: 10/31/17 15:06 Dose: 1 appful Diphenhydramine HCl (Benadryl -) 25 mg PO Q6H PRN PRN Reason: FOR ITCHING Last Admin: 10/30/17 23:58 Dose: 25 mg Daptomycin 320 mg/ Sodium (Chloride) 50 mls @ 50 mls/hr IVPB DAILY [facility] PRN Reason: Protocol Last Admin: 11/01/17 10:41 Dose: 50 mls/hr Lactic Acid (Lac-Hydrin 12) 1 applic TP BID PRN PRN Reason: WOUND CARE Last Admin: 10/30/17 10:57 Dose: 1 appful Spironolactone (Aldactone -) 25 mg PO DAILY [facility] Last Admin: 11/01/17 10:14 Dose: 25 mg # MDS pregression to AML platelets transfusion to keep > 10K pRBC transfusion for hgb <7 Heme/ onc appreciate follow up # non healing L foot ulcer defer to ID fo extent of tx - need for PICC line ?? # PVD wound care continue wound management Podiatry follow up # CKD trend renal function Problem List - Problems (1) Anemia Code(s): D64.9 - ANEMIA, UNSPECIFIED (2) Foot ulcer Code(s): L97.509 - NON-PRESSURE CHRONIC ULCER OTH PRT UNSP FOOT W UNSP SEVERITY (3) Pancytopenia Code(s): D61.818 - OTHER PANCYTOPENIA (4) HLD (hyperlipidemia) Code(s): E78.5 - HYPERLIPIDEMIA, UNSPECIFIED (5) HTN (hypertension) Code(s): I10 - ESSENTIAL (PRIMARY) HYPERTENSION (6) Infected ulcer of skin Code(s): L98.499 - NON-PRESSURE CHRONIC ULCER OF SKIN OF SITES W UNSP SEVERITY; L08.9 - LOCAL INFECTION OF THE SKIN AND SUBCUTANEOUS TISSUE, UNSP (7) Ulcer of left foot Code(s): L97.529 - NON-PRESSURE CHRONIC ULCER OTH PRT LEFT FOOT W UNSP SEVERITY Qualifiers:
[2017-11-01] MEDS: COLLAGENASE CLOSTRIDIUM HIST. 30 GRAMS TUBE TP SCH (14:09)
[2017-11-01] MEDS: AMMONIUM LACTATE 12% LOTION 225 GM BOTTLE TP PRN (14:09)
[2017-11-01] MEDS: ACETAMINOPHEN 325 MG TABLET (FP) PO PRN (20:46)
[2017-11-01] MEDS: ATORVASTATIN CA 20 MG TABLET (FP) PO SCH (21:08)
[2017-11-02] MEDS: ACETAMINOPHEN 325 MG TABLET (FP) PO PRN ×3 (01:25→20:12)
[2017-11-02 07:13] LABS: HEMOGLOBIN 8.2 GM/dL (11.7-16.9); MCH 32.6 pg (25.7-33.7); MCHC 35.8 g/dl (32.0-35.9); MEAN PLT VOLUME 7.8 fl (7.5-11.1); RBC 2.52 M/mm3 (4.00-5.60); RDW 14.5 % (11.9-15.9)
[2017-11-02 07:29] LABS: PLATELET COUNT 33 K/MM3 (134-434); WHITE BLOOD COUNT 1.4 K/mm3 (4.0-10.0)
[2017-11-02] MEDS ORDERED: PT OWN MED DRAWER 7, Y5N ONE (09:57)
[2017-11-02] MEDS: ALLOPURINOL 100 MG TABLET (FP) PO SCH (10:21)
[2017-11-02] MEDS: ATENOLOL 50 MG TABLET (FP) PO SCH (10:21)
[2017-11-02] MEDS: COLLAGENASE CLOSTRIDIUM HIST. 30 GRAMS TUBE TP SCH (10:21)
[2017-11-02] MEDS: AMMONIUM LACTATE 12% LOTION 225 GM BOTTLE TP PRN (10:21)
[2017-11-02] MEDS: DAPTOMYCIN 320 MG in SODIUM CHLORIDE 50 ML IVPB SCH (10:21)
[2017-11-02] MEDS: SPIRONOLACTONE 25 MG TABLET (FP) PO SCH (10:21)
[2017-11-02 12:05] LABS: PLATELET ESTIMATE DECREASED
--- NOTE | 2017-11-02 14:29 | PN ---
Progress Note, Physician History of Present Illness: Awake and alert C/O LE pain Afebrile Remains neutropenic/ pancytopenic Azotemia improved - Current Medication List Current Medications: Active Medications Acetaminophen (Tylenol -) 650 mg PO Q4H PRN PRN Reason: PAIN LEVEL 1-5 Last Admin: 11/02/17 12:17 Dose: 650 mg Allopurinol (Zyloprim -) 100 mg PO DAILY [facility] Last Admin: 11/02/17 10:21 Dose: 100 mg Atenolol (Tenormin -) 50 mg PO DAILY [facility] Last Admin: 11/02/17 10:21 Dose: 50 mg Atorvastatin Calcium (Lipitor -) 20 mg PO HS [facility] Last Admin: 11/01/17 21:08 Dose: 20 mg Collagenase (Santyl -) 1 applic TP DAILY [facility] Last Admin: 11/02/17 10:21 Dose: 1 applic Diphenhydramine HCl (Benadryl -) 25 mg PO Q6H PRN PRN Reason: FOR ITCHING Last Admin: 10/30/17 23:58 Dose: 25 mg Daptomycin 320 mg/ Sodium (Chloride) 50 mls @ 50 mls/hr IVPB DAILY [facility] PRN Reason: Protocol Last Admin: 11/02/17 10:21 Dose: 50 mls/hr Lactic Acid (Lac-Hydrin 12) 1 applic TP BID PRN PRN Reason: WOUND CARE Last Admin: 11/02/17 10:21 Dose: 1 applic Spironolactone (Aldactone -) 25 mg PO DAILY [facility] Last Admin: 11/02/17 10:21 Dose: 25 mg - Objective Vital Signs: Vital Signs Temperature 98.2 F 11/02/17 10:00 Pulse Rate 56 L 11/02/17 10:00 Respiratory Rate 18 11/02/17 10:00 Blood Pressure 109/55 11/02/17 10:00 O2 Sat by Pulse Oximetry (%) 98 11/01/17 21:00 Constitutional: Yes: No Distress Cardiovascular: Yes: Regular Rate and Rhythm, S1, S2 Respiratory: Yes: CTA Bilaterally Gastrointestinal: Yes: Normal Bowel Sounds, Soft. No: Tenderness Extremities: Yes: Other (LE edema much improved. Still with confluent erythema and warmth. L great toe ulcer dry) Labs: CBC, BMP 11/02/17 05:35 05/13/18 07:00 Assessment/Plan Bilateral LE cellulitis improved Non -healing L foot ulcer, osteomyelitis Febrile neutropenia Fever resolved Pancytopenia Azotemia improved Will need PICC for outpatient antibiotic therapy: Vancomycin 1gm q24h + Ampicillin 2gm IVPB q8h x 30days Discussed with daughter at bedside
[2017-11-02] MEDS ORDERED: PICC LINE 8 ML FLUSH PROTOCOL IVPUSH PRN (14:35)
--- NOTE | 2017-11-02 17:58 | PN ---
Progress Note (short form) - Note Progress Note: Patient seen and examined in room remains neutropenic / pancytopenic seems to understand progression of his disease verbalizes desire to go to [facility] daughter seen outside room case discussed / plans for [place] discussed / IV abx need for PICC / wound care / and requesting rehab but also she wants palliative care Vital Signs Period Temp Pulse Resp BP Sys/Rios Pulse Ox Last 24 Hr 97.5 F-98.2 F 45-65 18-18 109-123/45-61 97-98 neck supple heart S1/S2 Lungs clear bilat abd soft benign ext luli bandage bilat LE up to knees toes warm + pulses skin - less redness / (diffuse) CBC, BMP 11/02/17 05:35 11/01/17 07:00 Microbiology 10/27/17 10:30 Foot - Left Plantar Gram Stain - Final 10/27/17 10:30 Foot - Left Plantar Wound Culture - Final S Aureus Vr Ec Faecalis Diphtheroid/Corynebacterium 10/23/17 22:16 Blood - Peripheral Venous Blood Culture - Final NO GROWTH AFTER 5 DAYS INCUBATION 10/23/17 21:22 Blood - Peripheral Venous Blood Culture - Final NO GROWTH AFTER 5 DAYS INCUBATION Active Medications Acetaminophen (Tylenol -) 650 mg PO Q4H PRN PRN Reason: PAIN LEVEL 1-5 Last Admin: 11/02/17 12:17 Dose: 650 mg Allopurinol (Zyloprim -) 100 mg PO DAILY [facility] Last Admin: 11/02/17 10:21 Dose: 100 mg Atenolol (Tenormin -) 50 mg PO DAILY [facility] Last Admin: 11/02/17 10:21 Dose: 50 mg Atorvastatin Calcium (Lipitor -) 20 mg PO HS [facility] Last Admin: 11/01/17 21:08 Dose: 20 mg Collagenase (Santyl -) 1 applic TP DAILY [facility] Last Admin: 11/02/17 10:21 Dose: 1 applic Diphenhydramine HCl (Benadryl -) 25 mg PO Q6H PRN PRN Reason: FOR ITCHING Last Admin: 10/30/17 23:58 Dose: 25 mg IV Flush (Picc Line Flush) 8 ml IVPUSH PRN PRN PRN Reason: Protocol Daptomycin 320 mg/ Sodium (Chloride) 50 mls @ 50 mls/hr IVPB DAILY [facility] PRN Reason: Protocol Last Admin: 11/02/17 10:21 Dose: 50 mls/hr Lactic Acid (Lac-Hydrin 12) 1 applic TP BID PRN PRN Reason: WOUND CARE Last Admin: 11/02/17 10:21 Dose: 1 applic Spironolactone (Aldactone -) 25 mg PO DAILY [facility] Last Admin: 11/02/17 10:21 Dose: 25 mg # MDS ---- 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 Pancytopenia -- transfuse as needed Heme/ onc appreciate follow up palliative care trend labs # non healing L foot ulcer MRI - not definite , but findings may be consistent with osteo wound + MRAS / +VRE ABX and extent per ID # PVD wound care continue wound Podiatry follow up # CKD trend renal function improving disposition arrangements per daughters request [facility] -- he will need single room and isolation should not participate in PT / or other group activities at [facility] Problem List - Problems (1) Anemia Code(s): D64.9 - ANEMIA, UNSPECIFIED (2) Foot ulcer Code(s): L97.509 - NON-PRESSURE CHRONIC ULCER OTH PRT UNSP FOOT W UNSP SEVERITY (3) Pancytopenia Code(s): D61.818 - OTHER PANCYTOPENIA (4) HLD (hyperlipidemia) Code(s): E78.5 - HYPERLIPIDEMIA, UNSPECIFIED (5) HTN (hypertension) Code(s): I10 - ESSENTIAL (PRIMARY) HYPERTENSION (6) Infected ulcer of skin Code(s): L98.499 - NON-PRESSURE CHRONIC ULCER OF SKIN OF SITES W UNSP SEVERITY; L08.9 - LOCAL INFECTION OF THE SKIN AND SUBCUTANEOUS TISSUE, UNSP (7) Ulcer of left foot Code(s): L97.529 - NON-PRESSURE CHRONIC ULCER OTH PRT LEFT FOOT W UNSP SEVERITY Qualifiers:
[2017-11-02] MEDS: ATORVASTATIN CA 20 MG TABLET (FP) PO SCH (21:26)
[2017-11-03 06:58] VITALS: TEMP 97.4
[2017-11-03 08:13] LABS: HEMATOCRIT 25.8 % (35.4-49); HEMOGLOBIN 9.1 GM/dL (11.7-16.9); MCH 32.1 pg (25.7-33.7); MCHC 35.2 g/dl (32.0-35.9); MEAN CELL VOLUME 91.2 fl (80-96); MEAN PLT VOLUME 7.7 fl (7.5-11.1); RBC 2.83 M/mm3 (4.00-5.60); RDW 14.4 % (11.9-15.9)
[2017-11-03 08:58] LABS: CHLORIDE 107 mmol/L (98-107); SODIUM 141 mmol/L (136-145)
[2017-11-03 09:02] LABS: ANION GAP 9 (8-16); BLOOD UREA NITROGEN 25 mg/dL (7-18); CALCIUM 8.8 mg/dL (8.5-10.1); CO2 25 mmol/L (21-32); CREATININE 1.1 mg/dL (0.7-1.3); GLUCOSE,RANDOM 91 mg/dL (74-106)
[2017-11-03 09:06] LABS: WHITE BLOOD COUNT 1.7 K/mm3 (4.0-10.0)
[2017-11-03 09:07] LABS: PLATELET COUNT 27 K/MM3 (134-434)
[2017-11-03] MEDS ORDERED: PT OWN MED DRAWER 7, Y5N ONE (09:51)
[2017-11-03] MEDS: SPIRONOLACTONE 25 MG TABLET (FP) PO SCH (10:00)
[2017-11-03] MEDS: ATENOLOL 50 MG TABLET (FP) PO SCH (10:01)
[2017-11-03] MEDS: ALLOPURINOL 100 MG TABLET (FP) PO SCH (10:01)
[2017-11-03] MEDS: ACETAMINOPHEN 325 MG TABLET (FP) PO PRN (10:01)
[2017-11-03] MEDS: AMMONIUM LACTATE 12% LOTION 225 GM BOTTLE TP PRN (10:02)
[2017-11-03] MEDS: COLLAGENASE CLOSTRIDIUM HIST. 30 GRAMS TUBE TP SCH (10:02)
[2017-11-03] MEDS: DAPTOMYCIN 320 MG in SODIUM CHLORIDE 50 ML IVPB SCH (11:16)
--- NOTE | 2017-11-03 11:16 | PN ---
Progress Note, Physician History of Present Illness: Awake and alert No c/o leg pain Afebrile Remains neutropenic/ pancytopenic Azotemia improved Awaiting PICC for outpatient antibiotics - Current Medication List Current Medications: Active Medications Acetaminophen (Tylenol -) 650 mg PO Q4H PRN PRN Reason: PAIN LEVEL 1-5 Last Admin: 11/03/17 10:01 Dose: 650 mg Allopurinol (Zyloprim -) 100 mg PO DAILY [facility] Last Admin: 11/03/17 10:01 Dose: 100 mg Atenolol (Tenormin -) 50 mg PO DAILY [facility] Last Admin: 11/03/17 10:01 Dose: 50 mg Atorvastatin Calcium (Lipitor -) 20 mg PO HS [facility] Last Admin: 11/02/17 21:26 Dose: 20 mg Collagenase (Santyl -) 1 applic TP DAILY [facility] Last Admin: 11/03/17 10:02 Dose: 1 applic Diphenhydramine HCl (Benadryl -) 25 mg PO Q6H PRN PRN Reason: FOR ITCHING Last Admin: 10/30/17 23:58 Dose: 25 mg IV Flush (Picc Line Flush) 8 ml IVPUSH PRN PRN PRN Reason: Protocol Daptomycin 320 mg/ Sodium (Chloride) 50 mls @ 50 mls/hr IVPB DAILY [facility] PRN Reason: Protocol Last Admin: 11/02/17 10:21 Dose: 50 mls/hr Lactic Acid (Lac-Hydrin 12) 1 applic TP BID PRN PRN Reason: WOUND CARE Last Admin: 11/03/17 10:02 Dose: 1 applic Spironolactone (Aldactone -) 25 mg PO DAILY [facility] Last Admin: 11/03/17 10:00 Dose: 25 mg - Objective Vital Signs: Vital Signs Temperature 97.4 F L 11/03/17 06:57 Pulse Rate 50 L 11/03/17 06:57 Respiratory Rate 20 11/03/17 06:57 Blood Pressure 120/52 11/03/17 06:57 O2 Sat by Pulse Oximetry (%) 97 11/02/17 21:00 Constitutional: Yes: No Distress Cardiovascular: Yes: Regular Rate and Rhythm, S1, S2 Respiratory: Yes: CTA Bilaterally Gastrointestinal: Yes: Normal Bowel Sounds, Soft. No: Tenderness Extremities: Yes: Other (decreased LE erythema/ swelling) Labs: CBC, BMP 11/03/17 07:49 11/03/17 07:49 Assessment/Plan Bilateral LE cellulitis improved Non -healing L foot ulcer, osteomyelitis Febrile neutropenia Fever resolved Pancytopenia Azotemia improved Will need PICC for outpatient antibiotic therapy: Vancomycin 1gm q24h + Ampicillin 2gm IVPB q8h x 30days Discussed with daughter at bedside
[2017-11-03] MEDS ORDERED: VANCOMYCIN 1 GM PREMIX - 1 GM/200 ML BAG IVPB SCH (11:30)
[2017-11-03] MEDS ORDERED: AMPICILLIN - 2 GM in SODIUM CHLORIDE 100 ML IVPB SCH (11:30)
[2017-11-03 11:41] LABS: PLATELET ESTIMATE DECREASED
--- NOTE | 2017-11-03 11:49 | DS ---
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 The patient has had bilateral lower extremity wounds since December. Day proir to admission he reports the wound on his left lower extremity has opened up and began to bleed with shooting pains. He also reports developing a fever night prior to admission (Tmax 100.8) with associated chills. Denied any recent illness, chills, nausea, vomiting, diarrhea, cough, SOB, or urinary symptoms. During hospital stay required transfusion of pRBC and platelets, he has remained neutropenic and requires isolation. MRI consistent with osteomyelitis , patient followed by ID and by vascular surgery during hospitalization. Progression to AML has been discussed with family and with patient - they understand, and have made wishes known. plans for transfer to [facility] ( private room ) continue IV antibiotics, comfort care, and continue reverse isolation. assmt / plan Bilateral LE cellulitis improved Non -healing L foot ulcer, osteomyelitis Febrile neutropenia Fever resolved Pancytopenia Azotemia improved Will need PICC for outpatient antibiotic therapy: Vancomycin 1gm q24h + Ampicillin 2gm IVPB q8h x 30days Discussed with daughter at bedside Constitutional: Yes: No Distress, Calm Eyes: Yes: Conjunctiva Clear, EOM Intact HENT: Yes: Atraumatic, Normocephalic Neck: Yes: Supple, Trachea Midline Cardiovascular: Yes: Regular Rate and Rhythm Respiratory: Yes: CTA Bilaterally Gastrointestinal: Yes: Normal Bowel Sounds, Soft ...Rectal Exam: Yes: Deferred Renal/: Yes: WNL Breast(s): Yes: WNL Musculoskeletal: Yes: WNL Extremities: Yes: Other (chronic changes LE) Edema: No Peripheral Pulses WNL: Yes Integumentary: Yes: Venous Stasis Changes (lower extremeties) Wound/Incision: Yes: Clean/Dry, Dressing Dry and Intact Neurological: Yes: Alert, Oriented Psychiatric: Yes: Alert, Oriented Labs: CBC, BMP 11/03/17 07:49 11/03/17 07:49 Discharge Summary Reason For Visit: WOUND Current Active Problems Anemia (Acute) Foot ulcer (Acute) Pancytopenia (Acute) - Instructions Referrals: Lizzie Lerma [Primary Care Provider] - - Home Medications Comprehensive Discharge Medication List: Ambulatory Orders Allopurinol [Zyloprim -] 100 mg PO DAILY 06/10/17 Atenolol [Tenormin] 50 mg PO DAILY 06/10/17 Spironolactone [Aldactone] 25 mg PO DAILY 06/10/17 Vits A,C,E/Lutein/Minerals [I-Pauline Tablet] 1 each PO DAILY 06/10/17 Atorvastatin Calcium 20 mg PO HS 10/23/17 Ferrous Sulfate 325 mg PO BID 10/23/17
[2017-11-03] MEDS ORDERED: AMPICILLIN SODIUM 2 GM VIAL ONE (12:50)
[2017-11-03] MEDS ORDERED: SODIUM CHLORIDE 100 ML IVPB ONE (12:50)
[2017-11-03 15:08] VITALS: BP 141/60; PULSE 56
[2017-11-03] MEDS ORDERED: diphenhydrAMINE HCL 25 MG CAPSULE (FP) PO SCH (22:00)
== END 2017-11-03 15:51 | DRG 835 ==
LOC: JER 19:14 → JERBED 22:10 → J8W 10-24 00:30
PROVIDERS: ADMIT Family Medicine; ATTEND Family Medicine
PROC: 30233R1 Transfusion of Nonautologous Platelets into Peripheral Vein, Percutaneous Approach (ICD-10-PCS; principal; 2017-10-25)
PROC: 30233N1 Transfusion of Nonautologous Red Blood Cells into Peripheral Vein, Percutaneous Approach (ICD-10-PCS; 2017-10-25)
PROC: 02HV33Z Insertion of Infusion Device into Superior Vena Cava, Percutaneous Approach (ICD-10-PCS; 2017-11-03)
DX: C92.00 Acute myeloblastic leukemia, not having achieved remission (principal); L97.528 Non-pressure chronic ulcer of other part of left foot with other specified severity; L03.116 Cellulitis of left lower limb; L03.115 Cellulitis of right lower limb; M86.9 Osteomyelitis, unspecified; I10 Essential (primary) hypertension; K59.00 Constipation, unspecified; D46.9 Myelodysplastic syndrome, unspecified; E78.5 Hyperlipidemia, unspecified; M10.9 Gout, unspecified; M19.90 Unspecified osteoarthritis, unspecified site; D64.9 Anemia, unspecified; D70.9 Neutropenia, unspecified; I73.9 Peripheral vascular disease, unspecified; Z87.891 Personal history of nicotine dependence
CPT/HCPCS: 11042; 11045; 36415; 36430; 36569; 71045-TC-FY; 73630-TC-LT; 73718-LT; 77001-TC-FY; 80048; 80053; 82272; 83605; 83615; 83735; 84550; 85025; 85027; 85651; 86140; 86850; 86900; 86901; 86922; 87040; 87070; 87186; 87205; 88300-TC; 93005; 93010; 97116-GP; 97161-GP; 99282-25; C1751; G0480; J0878; P9034; P9038; P9058